=== PATIENT | female | born 1960 | race Caucasian/White ===

== ENCOUNTER 2018-01-16 09:32 | Inpatient (IN) | payer MEDICAID ==
--- NOTE | 2018-01-16 09:51 | EDPHY ---
H & P Stated Complaint: chronic n/v;recent d/c from [facility] [place];wants admit,jay tx for lung, pain meds Time Seen by Provider: 01/16/18 09:50 HPI/ROS: CHIEF COMPLAINT: Nausea vomiting, chronic pain, known lung cancer HISTORY OF PRESENT ILLNESS: The patient presents to the ED with nausea and vomiting and complaints of chronic pain. The patient has a history of a known lung cancer. She has been hospitalized for this recently [facility]. I reviewed the results of that hospitalization. The patient was subsequently seen in the emergency department along [facility] and diagnosed with a urinary tract infection. She was started on Levaquin. She was also given Zofran. The patient has a history of pulmonary embolism and is taking Xarelto. She is scheduled to see her oncologist Dr. Levon Montelongo this week. The patient reports he has been unable to keep her medications down. She reports the Zofran is not helping her nausea and vomiting. She reports that she is having uncontrolled pain. She contacted the coordinator [facility] who advised her to come to the emergency department. REVIEW OF SYSTEMS: A comprehensive 10 point review of systems is otherwise negative aside from elements mentioned in the history of present illness. Source: Patient Exam Limitations: No limitations - Personal History Current Tetanus Diphtheria and Acellular Pertussis (TDAP): Yes - Medical/Surgical History Other PMH: Breast CA. Lung CA. chronic pain - Social History Smoking Status: Former smoker - Physical Exam Exam: General Appearance: Disheveled female, obese, mild discomfort Eyes: Pupils equal and round no pallor or injection ENT, Mouth: Mucous membranes moist Respiratory: There are no retractions, lungs are clear to auscultation Cardiovascular: Regular rate and rhythm Gastrointestinal: Nonspecific abdominal tenderness, no peritoneal signs Neurological: Grossly normal motor exam Skin: Warm and dry, no rashes Musculoskeletal: Neck is supple nontender Extremities: symmetrical, full range of motion Constitutional: Initial Vital Signs Temperature (C) 37 C 01/16/18 09:34 Heart Rate 103 H 01/16/18 09:34 Respiratory Rate 18 01/16/18 09:34 Blood Pressure 102/67 01/16/18 09:34 O2 Sat (%) 93 01/16/18 09:34 O2 Delivery Mode Room Air Allergies/Adverse Reactions: Sulfa (Sulfonamide Antibiotics) Allergy (Intermediate, Verified 01/16/18 09:45) rash/swelling acetaminophen [From Vicodin] Allergy (Mild, Verified 01/16/18 09:45) Rash codeine Allergy (Mild, Verified 01/16/18 09:43) Rash hydrocodone [From Vicodin] Allergy (Mild, Verified 01/16/18 09:45) Rash NSAIDS (Non-Steroidal Anti-Inflamma Allergy (Mild, Verified 01/16/18 09:45) GI upset Penicillins Allergy (Mild, Verified 01/16/18 09:45) Rash Home Medications: Medication Instructions Recorded Albuterol [Proventil Inhaler HFA 1 - 2 puffs IH Q4H 01/16/18 (*)] Antibiotic For Uti 01/16/18 Diazepam [Valium 2 MG (*)] 2 mg PO 01/16/18 Furosemide [Lasix] 40 mg PO 01/16/18 HYDROmorphone HCL [Dilaudid 2 mg 2 mg PO 01/16/18 (*)] Ondansetron Odt [Zofran Odt 4 mg 4 mg PO Q4 01/16/18 (*)] Promethazine HCl [Phenergan 25mg 25 mg PO 01/16/18 (*)] Rivaroxaban [Xarelto 15mg (*)] 15 mg PO DAILY 01/16/18 fentaNYL [Fentanyl] 1 each TD 01/16/18 Medical Decision Making ED Course/Re-evaluation: I reviewed the patient's outpatient records. Consultation was made with Oncology. The patient presents to the ED with worsening metastatic disease. The patient had an IV established. She received a L normal saline. She received 4 mg of IV morphine and [address] Allen Weller has recommended inpatient admission given her ongoing symptoms of pain, vomiting and homelessness. They will consult on the patient to discuss options. Consultation is made with the hospitalist service at 1:30 p.m.. The patient will be admitted by Dr. Erendira Campos. Differential Diagnosis: Differential diagnosis considered includes dehydration metabolic abnormality, worsening metastatic disease - Data Points Laboratory Results: Laboratory Results 01/16/18 10:05 01/16/18 10:05 01/16/18 01/16/18 10:05 10:05 WBC 9.87 10^3/uL H 10^3/uL (3.80-9.50) RBC 4.19 10^6/uL 10^6/uL (4.18-5.33) Hgb 12.2 g/dL L g/dL (12.6-16.3) Hct 38.9 % % (38.0-47.0) MCV 92.8 fL fL (81.5-99.8) MCH 29.1 pg pg (27.9-34.1) MCHC 31.4 g/dL L g/dL (32.4-36.7) RDW 14.8 % % (11.5-15.2) Plt Count 492 10^3/uL H 10^3/uL (150-400) MPV 9.9 fL fL (8.7-11.7) Neut % (Auto) 70.3 % % (39.3-74.2) Lymph % (Auto) 18.6 % % (15.0-45.0) Smith % (Auto) 10.2 % % (4.5-13.0) Eos % (Auto) 0.2 % L % (0.6-7.6) Baso % (Auto) 0.3 % % (0.3-1.7) Nucleat RBC Rel Count 0.0 % % (0.0-0.2) Absolute Neuts (auto) 6.93 10^3/uL H 10^3/uL (1.70-6.50) Absolute Lymphs (auto) 1.84 10^3/uL 10^3/uL (1.00-3.00) Absolute Monos (auto) 1.01 10^3/uL H 10^3/uL (0.30-0.80) Absolute Eos (auto) 0.02 10^3/uL L 10^3/uL (0.03-0.40) Absolute Basos (auto) 0.03 10^3/uL 10^3/uL (0.02-0.10) Absolute Nucleated RBC 0.00 10^3/uL 10^3/uL (0-0.01) Immature Gran % 0.4 % % (0.0-1.1) Immature Gran # 0.04 10^3/uL 10^3/uL (0.00-0.10) Sodium 134 mEq/L L mEq/L (135-145) Potassium 4.5 mEq/L mEq/L (3.3-5.0) Chloride 101 mEq/L mEq/L (97-110) Carbon Dioxide 25 mEq/l mEq/l (22-31) Anion Gap 8 mEq/L mEq/L (8-16) BUN 18 mg/dL mg/dL (7-23) Creatinine 0.5 mg/dL L mg/dL (0.6-1.0) Estimated GFR > 60 Glucose 108 mg/dL H mg/dL (70-100) Calcium 11.8 mg/dL H mg/dL (8.5-10.4) Phosphorus 3.3 mg/dL mg/dL (2.5-4.5) Medications Given: Discontinued Medications Sodium Chloride (Ns) 1,000 mls @ 0 mls/hr IV EDNOW ONE; Wide Open PRN Reason: Protocol Stop: 01/16/18 10:34 Last Admin: 01/16/18 11:17 Dose: 1,000 mls Morphine Sulfate (Morphine) 4 mg IVP EDNOW ONE Stop: 01/16/18 11:19 Last Admin: 01/16/18 11:19 Dose: 4 mg Ondansetron HCl (Zofran) 4 mg IVP EDNOW ONE Stop: 01/16/18 11:19 Last Admin: 01/16/18 11:19 Dose: 4 mg Departure - Departure Disposition: [facility] Clinical Impression: Breast cancer, Dehydration, Cancer associated pain, Pulmonary embolism Condition: Fair Referrals: Levon Montelongo MD [Medical Doctor] - As per Instructions
[2018-01-16] MEDS ORDERED: NS 1,000 ML IV ONE ×2 (10:33→10:34)
[2018-01-16 10:56] LABS: PLATELET COUNT 492 10^3/uL (150-400)
[2018-01-16] MEDS ORDERED: ONDANSETRON 4 MG/2 ML VIAL ONE (11:12)
[2018-01-16] MEDS ORDERED: ONDANSETRON 4 MG/2 ML VIAL IVP ONE (11:18)
[2018-01-16] MEDS ORDERED: HYDROmorphONE/DILAUDID 2 MG/ML INJ IVP ONE (13:27)
--- NOTE | 2018-01-16 14:31 | ASMTCMCOM ---
CM Note CM Note Notes: Asked to see pt by Dr. Mcknight. Pt presented to the Emergency Department with complaints of pain, nausea, and vomiting. History includes breast cancer, likely metastatic. Pt is currently homeless, staying in motels or with friends. Pt is accompanied by her boyfriend, "Eduardo." The pt states she has a Water Supervisor (Sally) at the [facility] who is helping her with housing. Pt was recently discharged from [facility] on 01/11/18 and was seen in the Emergency Department at [facility] again on 01/14/18. Met with pt to discuss current situation. Pt feels she "is rapidly declining from the lung cancer." She states she has been unable to eat or drink for several days due to her nausea and vomiting. She states "the pain in her lungs has gotten worse and she feels like she can't go on." Update provided to Dr. Mcknight. Call placed to [facility] , at the request of Dr. Mcknight. Spoke with Dr. Weller. Per Dr. Weller, the pt is known to their practice. She was initially followed by Dr. Royal in November of 2012 for a diagnosis of Stage IIA breast cancer. She subsequently received chemo under the care of Dr. Kruger at [facility]. Her most recent CT scan showed a PE, a right upper lobe lung mass, and enlarged lymph nodules. The pt had a PET scan on 12/18/2017 which showed an enlarging mass on her right kidney. Dr. Weller feels an inpt admission may be warranted for biopsies, follow on care and further treatment. Update provided to Cinthia Dean RN and pt. Discharge needs remain unclear at this time. CM will continue to follow pt during this hospitalization. Date Signed: 01/16/2018 02:29 PM Electronically Signed By:Paulette Davalos RN
[2018-01-16] MEDS ORDERED: HYDROmorphone HCL 0.5 MG/0.5 ML SYR IVP PRN (14:56)
[2018-01-16] MEDS ORDERED: ACETAMINOPHEN 325 MG TAB PO PRN (14:56)
[2018-01-16] MEDS ORDERED: ALBUTEROL 60 PUFFS/8 GM MDI IH PRN (15:00)
--- NOTE | 2018-01-16 15:57 | GHP ---
[f rep st] HISTORY AND PHYSICAL DATE OF ADMISSION: 01/16/2018 CHIEF COMPLAINT: Nausea, vomiting, shortness of breath. HISTORY OF PRESENT ILLNESS: Ms. Damon is a 57-year-old woman with a history significant for adenocar cinoma of her lung and COPD with ongoing tobacco use. She comes in with 2 weeks of nausea, vomiting, diarrhea, and increasing shortness of breath. She states she has had poor p.o. with solids and liqu ids for 2 weeks. She has been admitted to the hospital at [facility] from December 18 through , December 22 through , and January 05 through January 11, all with similar complaints. During that t екатерина, her workup has included 2 CT scans of her abdomen and pelvis showing no obvious metastatic disea se, but she did have a small soft tissue tumor on her kidney. She has had an abdominal ultrasound wh ich was negative and a whole-body nuclear scan which showed some various joint issues, but nothing ob vious. Her last admission was from January 05 through January 11, at which point, she was treated conserv atively, had a significant workup done noted above, and eventually discharged home with pain control and follow up with Oncology. Since then, she has been to the emergency room twice, most recently joanne gnosed with a urinary tract infection and treated with Levaquin. After reviewing the chart, it appea rs that her urine culture was negative and she mainly had some microscopic hematuria. She has a remote history of breast cancer, which has been treated with chemo, lumpectomy. This was i n 2001. More recently, she was diagnosed with adenocarcinoma of the lung. The biopsy was done in [facility] of 2017. She has a right hilar mass and a right upper lobe mass, which was positive for TTF-1. This was ordered by her doctor, Dr. Foley. She was supposed to follow up with Oncology at the [facility], however, has missed multiple appointments stating that she is unable to get ther e for Oncology and would prefer to follow up here in [place]. She has scheduled an appointment with Dr. Montelongo on January 19. She was also scheduled for an MRI of her brain and she apparently missed that appointment and it has not been done yet. Currently, her main issue is nausea, vomiting, poor p.o. intake. She only has abdominal pain when sh e has some cramping with the diarrhea and emesis. She has chronic chest pain from her lung mass she states that is unchanged as long as she takes her pain medications. No headache. No neurologic fontenot ges. She has chronic lower extremity edema, chronic shortness of breath. No change in her urinary s ymptoms. REVIEW OF SYSTEMS: A 10-point review of systems was done with pertinent positives present in HPI. PAST MEDICAL HISTORY: 1. Adenocarcinoma of the lung, untreated. 2. Breast cancer, remote. 3. COPD. 4. Pulmonary embolism diagnosed in December. 5. Ongoing tobacco use. 6. Probable chronic respiratory failure. FAMILY HISTORY: Mother from some sort of metastatic cancer of unknown cause. SOCIAL HISTORY: She is currently homeless. She and her boyfriend have been moving around from house to house with friends over the last several months. She continues to smoke a few cigarettes per day . She denies alcohol use or recreational drug use. CURRENT MEDICATIONS: Please see med reconciliation form. Pain medications do include fentanyl patch and Dilaudid orally. ALLERGIES: To sulfa, Vicodin, codeine, nonsteroidal anti-inflammatories, and penicillin. PHYSICAL EXAMINATION: VITAL SIGNS: She is afebrile. Heart rate 99, blood pressure 109/58, respirat ions 16. She is 93% on 2 L. GENERAL: She is an obese 57-year-old woman. She is in no obvious dist ress. She is alert. HEENT: Pupils are equal. Extraocular movements intact. Mucous membranes are moist. Oropharynx is clear. NECK: Supple. No obvious adenopathy. HEART: Regular with a systolic murmur radiating to carotids. LUNGS: Diminished bilaterally. No obvious wheeze or rhonchi. ABDOM EN: Obese, soft. No tenderness on palpation. No masses. EXTREMITIES: Bilateral lower extremity n onpitting edema. MUSCULOSKELETAL: No joint deformities. NEUROLOGIC: Her speech is fluent. She mo ves all 4 extremities. PSYCH: She is appropriate, somewhat anxious. CIRCULATORY: Pulses intact di stally. LABORATORY DATA: Sodium 134. Calcium elevated 11.8. CBC shows a white count of 9.9, hemoglobin 12. 2 with a platelet count of 492. ASSESSMENT AND PLAN: A 57-year-old woman with above medical history, presents with nausea, vomiting, and diarrhea. Contributing factors could include chronic narcotic use, malignancy, or hypercalcemia . 1. Nausea, vomiting, diarrhea. Will treat symptomatically. Place her on clear liquids, IV fluids, antiemetics, and follow her clinically. No further imaging of her abdomen needs to be done at this t [facility] as she has had [address] scans. Additionally, I will order a C difficile toxin for her diarrhe a given her multiple admissions to the hospital and will correct her calcium. 2. Additionally, we will add some Decadron to see if that makes her feel better from her nausea and vomiting. 3. Hypercalcemia, likely secondary to her malignancy. Will repeat ionized calcium, hydrate her and consider Zometa as treatment to see if this makes her feel better. Chronic. 4. obstructive pulmonary disease with chronic hypoxic respiratory failure. Patient has been hypoxic previously at the ER visits. She complains of intermittent shortness of breath. She has diminished breath sounds and has ongoing tobacco use. Will add Duonebs while she is here and she will be place d on Decadron for her nausea and vomiting. This will likely help her lungs as well. 5. Chronic pain, currently on fentanyl patch. Will continue and add IV medications while she has na usea and vomiting and resume her usual medications on discharge. 6. History of pulmonary embolism, currently on Xarelto and followed by Dr. Tobin in [place]. 7. Ongoing tobacco use. Will have a nicotine patch. 8. Homelessness. This will be a difficult disposition and the patient will need to get set up in a better social situation if she wants to proceed for treatment for her lung cancer. /[id number]/MODL
[2018-01-16] MEDS: RIVAROXABAN 15 MG TAB PO SCH (16:50)
[2018-01-16] MEDS: HYDROmorphONE/DILAUDID 1 MG/ML INJ IVP PRN ×2 (17:16→22:27)
[2018-01-16] MEDS: IPRATROPIUM/ALBUTEROL 3 ML DEYVIAL IH SCH ×2 (17:19→21:31)
[2018-01-16] MEDS: NS 1,000 ML IV SCH (17:20)
[2018-01-16] MEDS: NICOTINE 14 MG/24 HR PATCH TD SCH (17:20)
[2018-01-16] MEDS: HYDROmorphONE/DILAUDID 2 MG TAB PO PRN (19:47)
[2018-01-16] MEDS: ONDANSETRON 4 MG/2 ML VIAL IVP PRN (19:51)
[2018-01-16] MEDS: DIAZEPAM 2 MG TAB PO SCH (20:02)
[2018-01-16] MEDS: DEXAMETHASONE 4 MG/ML VIAL IVP SCH (20:03)
[2018-01-16] MEDS ORDERED: HYDROmorphONE/DILAUDID 1 MG/ML INJ IVP ONE (20:15)
[2018-01-16] MEDS ORDERED: DEXAMETHASONE 4 MG/ML VIAL IVP SCH (21:00)
[2018-01-16] MEDS ORDERED: METHOCARBAMOL 1,000 MG in NS 50 ML IV ONE (22:45)
[2018-01-17] MEDS ORDERED: GABAPENTIN 300 MG CAP PO ONE (01:01)
[2018-01-17] MEDS: HYDROmorphONE/DILAUDID 1 MG/ML INJ IVP PRN ×7 (01:13→22:23)
[2018-01-17] MEDS: IPRATROPIUM/ALBUTEROL 3 ML DEYVIAL IH SCH ×4 (06:34→21:11)
[2018-01-17] MEDS: ONDANSETRON 4 MG/2 ML VIAL IVP PRN (08:08)
[2018-01-17] MEDS ORDERED: ZOLEDRONIC ACID 4 MG in D5W 100 ML IV ONE (08:10)
[2018-01-17] MEDS: DEXAMETHASONE 4 MG/ML VIAL IVP SCH ×2 (08:10→20:43)
[2018-01-17] MEDS: HYDROmorphONE/DILAUDID 2 MG TAB PO PRN ×3 (08:15→20:43)
[2018-01-17] MEDS: DIAZEPAM 2 MG TAB PO SCH ×2 (08:15→20:43)
[2018-01-17] MEDS: NS 1,000 ML IV SCH ×2 (08:15→23:13)
[2018-01-17] MEDS: RIVAROXABAN 15 MG TAB PO SCH (08:16)
[2018-01-17] MEDS: FUROSEMIDE 40 MG TAB PO SCH (08:16)
[2018-01-17] MEDS: NICOTINE 14 MG/24 HR PATCH TD SCH (08:17)
[2018-01-17] MEDS ORDERED: GADOBUTROL 10 ML VIAL IVP ONE (08:27)
[2018-01-17] MEDS ORDERED: LORazepam 2 MG/ML INJ IVP ONE (10:00)
--- NOTE | 2018-01-17 11:50 | HOSPPROG ---
Hospitalist Progress Note Assessment/Plan: 57-year-old with a history of untreated an adenocarcinoma of the lung is admitted with nausea vomiting and diarrhea. Since being in here she has had no diarrhea. She admits she would like to stay here until she feels strong enough to start treatment for her cancer. # hypercalcemia, likely secondary to lung cancer. Corrected calcium is 10.6 * Repeat calcium and ionized calcium in a.m. * Unclear benefit with minimally elevated calcium of Zometa. Will discuss with Oncology # nausea vomiting diarrhea, no evidence of that so far. But has had poor p.o. Intake * Advance diet * Continue Decadron # adenocarcinoma of the lung. Diagnosed in July patient was noncompliant with follow up at [place] and has not started treatment. * She is interested in treatment * She has a follow-up scheduled on Thursday per her report. * Main issue is chronic chest pain due to the mass # COPD with ongoing tobacco use * Continue nebulizers # acute on chronic respiratory failure, I suspect the patient has chronic respiratory failure given exam findings of clubbing. She is homeless so setting up home O2 is going to be difficult. * Monitor oxygen here in the hospital # disposition: Patient is homeless, she does have Medicaid. Given ongoing weakness and poor p.o. Intake associated with untreated adenocarcinoma of the lung the patient will need greater than 2 midnight stay Subjective: Complains of ongoing weakness and difficulty eating. She does not feel strong enough at this time for discharge. She is quite interested in treating her cancer however Objective: Vital Signs Temp Pulse Resp BP Pulse Ox 36.5 C 99 14 119/66 91 L 01/17/18 07:32 01/17/18 07:32 01/17/18 07:32 01/17/18 07:32 01/17/18 07:32 Laboratory Results 01/17/18 01:35 01/16/18 01/17/18 01/18/18 05:59 05:59 05:59 Intake Total 1200 Output Total 800 600 Balance 400 -600 - Physical Exam Constitutional: chronically ill appearing, obese, unkempt Eyes: PERRL Ears, Nose, Mouth, Throat: hearing normal Cardiovascular: regular rate and rhythym Respiratory: no respiratory distress, reduced air movement Gastrointestinal: normoactive bowel sounds Genitourinary: no bladder fullness Skin: normal color Musculoskeletal: generalized weakness Neurologic: No facial droop Psychiatric: anxious ICD10 Worksheet Patient Problems: Problems Problem Status Onset Breast cancer Acute Dehydration Acute Cancer associated pain Acute Pulmonary embolism Acute
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
[2018-01-17] MEDS ORDERED: IOPAMIDOL (ISOVUE-300) 100 ML BTL ONE (15:59)
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
--- NOTE | 2018-01-17 17:29 | PDMN ---
Medical Necessity Medical necessity: Change to IP, as of 01/17/18, per MD; los >2 mn for ongoing management of untreated adenocarcinoma of lung w/weakness, poor p.o. intake, & acute on chronic respiratory failure; requiring further workup, Oncology consult , IVFs, respiratory supportive care & therapies; hx homelessness, COPD; per progress note & order 01/17/18
[2018-01-18] MEDS: HYDROmorphONE/DILAUDID 1 MG/ML INJ IVP PRN ×7 (01:03→23:50)
[2018-01-18] MEDS: HYDROmorphONE/DILAUDID 2 MG TAB PO PRN ×4 (03:04→23:16)
[2018-01-18] MEDS: IPRATROPIUM/ALBUTEROL 3 ML DEYVIAL IH SCH ×4 (06:23→17:55)
--- NOTE | 2018-01-18 09:31 | HOSPPROG ---
Hospitalist Progress Note Assessment/Plan: 57-year-old with a history of untreated an adenocarcinoma of the lung is admitted with nausea vomiting and diarrhea. She has no N/V/D, Met with Radiation Oncology and plans to start radiation here while working on disposition. # hypercalcemia, likely secondary to lung cancer. Corrected calcium is 10.6 * Repeat calcium and ionized calcium in a.m. * Unclear benefit with minimally elevated calcium of Zometa. Will discuss with Oncology # nausea vomiting diarrhea, no evidence of that so far. But has had poor p.o. Intake * Advance diet * Continue Decadron # adenocarcinoma of the lung. Diagnosed in July patient was noncompliant with follow up at [place] and has not started treatment. * She is interested in treatment * XRT # COPD with ongoing tobacco use * Continue nebulizers * On Decadron # acute on chronic respiratory failure, I suspect the patient has chronic respiratory failure given exam findings of clubbing. She is homeless so setting up home O2 is going to be difficult. * Monitor oxygen here in the hospital * Likely from COPD and some lung collapse due to cancer. # disposition: Patient is homeless, she does have Medicaid. Given ongoing weakness and poor p.o. Intake associated with untreated adenocarcinoma of the lung the patient will need greater than 2 midnight stay Subjective: State her nausea and vomiting has resolve, no diarrhea. has ongoing chronic chest pain. Objective: Vital Signs Temp Pulse Resp BP Pulse Ox 36.4 C 94 17 124/59 H 88 L 01/18/18 09:10 01/18/18 09:10 01/18/18 09:10 01/18/18 09:10 01/18/18 09:10 Laboratory Results 01/18/18 04:38 01/17/18 01/18/18 01/19/18 05:59 05:59 05:59 Intake Total 540 Output Total 1550 700 Balance -1010 -700 - Physical Exam Constitutional: obese, unkempt Eyes: PERRL Ears, Nose, Mouth, Throat: moist mucous membranes Cardiovascular: regular rate and rhythym Respiratory: no respiratory distress, reduced air movement Gastrointestinal: normoactive bowel sounds, No tenderness Genitourinary: no bladder fullness Skin: normal color Neurologic: AAOx3 Psychiatric: interacting appropriately, anxious ICD10 Worksheet Patient Problems: Problems Problem Status Onset Breast cancer Acute Dehydration Acute Cancer associated pain Acute Pulmonary embolism Acute
[2018-01-18] MEDS: RIVAROXABAN 15 MG TAB PO SCH (10:04)
[2018-01-18] MEDS: DEXAMETHASONE 4 MG/ML VIAL IVP SCH ×2 (10:04→21:09)
[2018-01-18] MEDS: DIAZEPAM 2 MG TAB PO SCH ×2 (10:04→20:56)
[2018-01-18] MEDS: NS 1,000 ML IV SCH ×2 (10:14→23:17)
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
[2018-01-18] MEDS: NICOTINE 14 MG/24 HR PATCH TD SCH (13:43)
[2018-01-18] MEDS: FUROSEMIDE 40 MG TAB PO SCH (13:43)
[2018-01-18] MEDS ORDERED: ZOLEDRONIC ACID 4 MG in D5W 100 ML IV ONE (14:45)
--- NOTE | 2018-01-18 16:55 | ASMTCMCOM ---
CM Note CM Note Notes: Pt asked if CM could speak with her about helping her find a place that she could stay following D/C and while receiving her 5 days of radiation therapy. CM spoke to Pt and Pt shared that she already had someone working with her, she reports that Sally, a [facility] she [facility] her [facility] is helping her. CM will need to try to contact Sally to learn more about her efforts. CM to follow. D/C Plan: TBD D Date Signed: 01/18/2018 04:54 PM Electronically Signed By:Caorl Gomez
[2018-01-19] MEDS ORDERED: ALBUTEROL 3 ML DEYVIAL ONE
[2018-01-19] MEDS: IPRATROPIUM/ALBUTEROL 3 ML DEYVIAL IH SCH ×5 (00:12→21:58)
[2018-01-19] MEDS: LORazepam 0.5 MG TAB PO PRN ×2 (00:32→11:23)
[2018-01-19] MEDS: HYDROmorphONE/DILAUDID 1 MG/ML INJ IVP PRN ×5 (02:07→19:07)
[2018-01-19] MEDS: HYDROmorphONE/DILAUDID 2 MG TAB PO PRN ×4 (04:53→21:01)
[2018-01-19] MEDS: DEXAMETHASONE 4 MG/ML VIAL IVP SCH (08:42)
[2018-01-19] MEDS: FUROSEMIDE 40 MG TAB PO SCH (08:42)
[2018-01-19] MEDS: RIVAROXABAN 15 MG TAB PO SCH (08:43)
[2018-01-19] MEDS: DIAZEPAM 2 MG TAB PO SCH ×2 (08:43→21:03)
[2018-01-19] MEDS: ONDANSETRON 4 MG/2 ML VIAL IVP PRN (08:50)
[2018-01-19] MEDS ORDERED: fentaNYL 12 MCG PATCH TD SCH (09:00)
[2018-01-19] MEDS: NICOTINE 14 MG/24 HR PATCH TD SCH (11:01)
--- NOTE | 2018-01-19 13:13 | SOAPPROG ---
SOAP Progress Note Assessment/Plan: Assessment: 1. non small cell lung cancer, unresectable 2. hypercalcemia of malignancy, better post Zometa 3. copd Plan:palliative RT , consideration systemic therapy 01/19/18 13:11 Subjective: some pain and anxiety Objective: Vital Signs Temp Pulse Resp BP Pulse Ox 98.4 F 90 16 111/60 91 L 01/19/18 12:56 01/19/18 12:56 01/19/18 12:56 01/19/18 12:56 01/19/18 12:56 Laboratory Results 01/19/18 04:36 01/18/18 01/19/18 01/20/18 05:59 05:59 05:59 Intake Total 540 2004 Output Total 1550 3050 1700 Balance -1010 -1046 -1700 Physical Exam - Physical Exam General Appearance: alert, moderate distress Respiratory: decreased breath sounds Cardiac/Chest: regular rate, rhythm Abdomen: normal bowel sounds, non-tender ICD10 Worksheet Patient Problems: Problems Problem Status Onset Breast cancer Acute Cancer associated pain Acute Dehydration Acute Pulmonary embolism Acute
--- NOTE | 2018-01-19 14:43 | HOSPPROG ---
Hospitalist Progress Note Assessment/Plan: 57-year-old with a history of untreated an adenocarcinoma of the lung is admitted with nausea vomiting and diarrhea. She has no N/V/D, Met with Radiation Oncology , patient status post 1st radiation therapy today will need 5 total. Given her homelessness and social situation will keep her in-house while she receives her radiation therapy # hypercalcemia, likely secondary to lung cancer. * Improved on Zometa # chest pain secondary to radiation therapy as well as her tumor. Patient refusing fentanyl patch * At oral meds. # nausea vomiting diarrhea, improved with steroids * Advance diet * Continue Decadron # adenocarcinoma of the lung. Diagnosed in July patient was noncompliant with follow up at [place] and has not started treatment. * Cancer is nonresectable * XRT * Follow up with Dr. Weller as outpatient once she finishes XRT # COPD with ongoing tobacco use * Continue nebulizers * On Decadron # acute on chronic respiratory failure, due to her history of COPD with evidence of clubbing on exam as well as significant tumor burden in her belongings with likely some collapse. * Monitor oxygen here in the hospital * Likely from COPD and some lung collapse due to cancer. # disposition: Patient is homeless, she does have Medicaid. Given ongoing weakness and poor p.o. Intake associated with untreated adenocarcinoma of the lung the patient will need greater than 2 midnight stay Subjective: Complains of significant pain. Refuses fentanyl patch because it bothers her scan Objective: Vital Signs Temp Pulse Resp BP Pulse Ox 36.9 C 90 16 111/60 91 L 01/19/18 12:56 01/19/18 12:56 01/19/18 12:56 01/19/18 12:56 01/19/18 12:56 Laboratory Results 01/19/18 04:36 01/18/18 01/19/18 01/20/18 05:59 05:59 05:59 Intake Total 540 2004 Output Total 1550 3050 1700 Balance -1010 -2486 -1700 - Physical Exam Constitutional: chronically ill appearing, uncomfortable Eyes: PERRL Ears, Nose, Mouth, Throat: moist mucous membranes Cardiovascular: regular rate and rhythym Respiratory: no respiratory distress, reduced air movement Gastrointestinal: normoactive bowel sounds, soft, non-tender abdomen Skin: warm, No normal color (Pale) Musculoskeletal: generalized weakness Neurologic: weakness, No facial droop Psychiatric: interacting appropriately ICD10 Worksheet Patient Problems: Problems Problem Status Onset Breast cancer Acute Cancer associated pain Acute Dehydration Acute Pulmonary embolism Acute
[2018-01-19] MEDS: DEXAMETHASONE 4 MG TAB PO SCH (21:03)
[2018-01-20] MEDS: LORazepam 0.5 MG TAB PO PRN ×2 (01:05→13:47)
[2018-01-20] MEDS: HYDROmorphONE/DILAUDID 1 MG/ML INJ IVP PRN (01:06)
[2018-01-20] MEDS: HYDROmorphONE/DILAUDID 2 MG TAB PO PRN ×4 (03:30→17:37)
[2018-01-20] MEDS: IPRATROPIUM/ALBUTEROL 3 ML DEYVIAL IH SCH ×4 (03:46→21:09)
[2018-01-20] MEDS: DIAZEPAM 2 MG TAB PO SCH ×2 (08:04→21:24)
[2018-01-20] MEDS: FUROSEMIDE 40 MG TAB PO SCH ×2 (08:05→11:09)
[2018-01-20] MEDS: RIVAROXABAN 15 MG TAB PO SCH (08:05)
[2018-01-20] MEDS: DEXAMETHASONE 4 MG TAB PO SCH ×2 (08:05→21:24)
--- NOTE | 2018-01-20 08:40 | SOAPPROG ---
SOAP Progress Note Assessment/Plan: Assessment: 1. non small cell lung cancer, unresectable 2. hypercalcemia of malignancy, better post Zometa 3. COPD Plan:palliative RT, plan is for 5 treatments , consideration systemic therapy post RT 01/19/18 13:11 01/20/18 08:39 Subjective: Cold this AM, wants to sleep, Objective: Vital Signs Temp Pulse Resp BP Pulse Ox 98.6 F 101 H 18 101/60 92 01/20/18 08:11 01/20/18 08:11 01/20/18 08:11 01/20/18 08:11 01/20/18 08:25 Laboratory Results 01/19/18 04:36 01/19/18 01/20/18 01/21/18 05:59 05:59 05:59 Intake Total 2003 800 Output Total 6 4147 Balance -1046 -2200 Physical Exam - Physical Exam General Appearance: alert, mild distress Respiratory: decreased breath sounds Cardiac/Chest: regular rate, rhythm ICD10 Worksheet Patient Problems: Problems Problem Status Onset Breast cancer Acute Cancer associated pain Acute Dehydration Acute Pulmonary embolism Acute
[2018-01-20] MEDS: NICOTINE 14 MG/24 HR PATCH TD SCH (10:14)
[2018-01-20] MEDS: ONDANSETRON DISINTEGRATING 4 MG TAB PO PRN (13:19)
[2018-01-20] MEDS: PROMETHAZINE HCL 25 MG/ML INJ IVP PRN (14:17)
[2018-01-20] MEDS: traMADol 50 MG TAB PO PRN (14:18)
--- NOTE | 2018-01-20 15:22 | HOSPPROG ---
Hospitalist Progress Note Assessment/Plan: DIAGNOSES: * uncontrolled pain of cancer * recently diagnosed unresectable lung cancer, metastatic disease * hypercalcemia of malignancy * acute on chronic hypoxemic respiratory failure/COPD exacerbation * intractable nausea vomiting * homelessness PLANS: * Continue current radiation treatments * I have added some long-acting morphine, some Celebrex, and some tramadol for pain relief * Continue treatment of nausea * Continue current steroids and bronchodilators * Recheck ionized calcium in the morning * Palliative care discussions ongoing * Continue social work and discharge planning efforts to try and set her up for best success after discharge I reviewed her case and treatment issues in detail today with Dr. 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, my review: Exam: alert oriented mildly anxious and looks uncomfortable skin warm dry color ok no jaundice resps mildly labored lungs markedly diminished BSs but no rales or rhonchi or wheeze heart regular abd soft nondistended nontender, bowel sounds present limbs warm, no edema iv site ok Objective: Vital Signs Temp Pulse Resp BP Pulse Ox 36.8 C 97 16 105/59 L 90 L 01/20/18 12:50 01/20/18 12:50 01/20/18 12:50 01/20/18 12:50 01/20/18 12:50 Laboratory Results 01/19/18 04:36 01/19/18 01/20/18 01/21/18 06:59 06:59 06:59 Intake Total 2003 800 Output Total 2850 3000 200 Balance -846 -2200 -200 - Time Spent With Patient Time Spent with Patient: greater than 35 minutes Time Spent with Patient: Greater than 35 minutes spent on this patients care, greater than 50% of time spent counseling, educating, and coordinating care regarding the above mentioned plan. ICD10 Worksheet Patient Problems: Problems Problem Status Onset Breast cancer Acute Cancer associated pain Acute Dehydration Acute Pulmonary embolism Acute
[2018-01-20] MEDS: ONDANSETRON 4 MG/2 ML VIAL IVP SCH ×2 (17:37→21:24)
[2018-01-20] MEDS: morphINE SR 15 MG TAB PO SCH (21:24)
[2018-01-21] MEDS: NS 1,000 ML IV SCH ×2 (00:43→10:29)
[2018-01-21] MEDS: traMADol 50 MG TAB PO PRN ×2 (00:46→11:21)
[2018-01-21] MEDS: ONDANSETRON 4 MG/2 ML VIAL IVP SCH ×6 (02:32→20:53)
[2018-01-21] MEDS: HYDROmorphONE/DILAUDID 2 MG TAB PO PRN ×5 (02:37→22:26)
[2018-01-21] MEDS: IPRATROPIUM/ALBUTEROL 3 ML DEYVIAL IH SCH ×4 (05:28→21:28)
[2018-01-21] MEDS: RIVAROXABAN 15 MG TAB PO SCH (08:35)
[2018-01-21] MEDS: FUROSEMIDE 40 MG TAB PO SCH (08:35)
[2018-01-21] MEDS: DIAZEPAM 2 MG TAB PO SCH ×2 (08:36→20:53)
[2018-01-21] MEDS: DEXAMETHASONE 4 MG TAB PO SCH ×2 (08:37→20:53)
[2018-01-21] MEDS: morphINE SR 15 MG TAB PO SCH ×2 (08:37→20:53)
[2018-01-21] MEDS: NICOTINE 14 MG/24 HR PATCH TD SCH (08:41)
--- NOTE | 2018-01-21 12:08 | SOAPPROG ---
SOAP Progress Note Assessment/Plan: Assessment: 1. non small cell lung cancer, unresectable 2. hypercalcemia of malignancy, better post Zometa 3. COPD Plan:palliative RT, plan is for 5 treatments , consideration systemic therapy post RT, on long acting morphine, celebrex, tramadol, and steroids. , could increase morphine tomorrow if pain not better 01/19/18 13:11 01/20/18 08:39 01/21/18 12:05 Subjective: C/O pain, R chest Objective: Vital Signs Temp Pulse Resp BP Pulse Ox 97.5 F 96 16 101/51 L 90 L 01/21/18 11:36 01/21/18 11:36 01/21/18 11:36 01/21/18 11:36 01/21/18 11:36 Laboratory Results 01/19/18 04:36 01/20/18 01/21/18 01/22/18 05:59 05:59 05:59 Intake Total 800 873 200 Output Total 3000 600 Balance -2200 273 200 Physical Exam - Physical Exam General Appearance: mild distress Respiratory: decreased breath sounds Cardiac/Chest: regular rate, rhythm Abdomen: normal bowel sounds, non-tender ICD10 Worksheet Patient Problems: Problems Problem Status Onset Breast cancer Acute Cancer associated pain Acute Dehydration Acute Pulmonary embolism Acute
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
[2018-01-21] MEDS: LORazepam 0.5 MG TAB PO PRN ×2 (13:48→20:56)
--- NOTE | 2018-01-21 15:51 | HOSPPROG ---
Hospitalist Progress Note Assessment/Plan: DIAGNOSES: * uncontrolled pain of cancer * recently diagnosed unresectable lung cancer, metastatic disease * hypercalcemia of malignancy * acute on chronic hypoxemic respiratory failure/COPD exacerbation * intractable nausea vomiting * homelessness Had a long discussion with the patient today about her situation, and had a visit with her along with our caser shoe parts today to review her social challenges related to homelessness and other challenges. Reviewed the current plan for treatments during the rest of her hospital stay and what the plans overall will likely look like upon discharge. Specifically however she will need to have follow-up appointment in the clinic to review options for chemotherapy or immune therapy. She understands this. She is going to be helped greatly by hooking or up with [facility] and will start arranging this at present. PLANS: * Continue current radiation treatments, last treatment should be tomorrow * Continue long-acting morphine, some Celebrex, and tramadol adjust doses as needed * Continue current treatment of nausea * Continue current steroids and bronchodilators * Recheck ionized calcium in the morning * Palliative care discussions ongoing * Continue social work and discharge planning efforts to try and set her up for best success after discharge I reviewed her case and treatment issues in detail today with Dr. Shashi Gil SUBJECTIVE: Pain is still present and problematic but notably improved from yesterday and she did sleep better last night Eating a little bit better Short of breath is mild today Tolerating her radiation treatments okay other than bed fatigue OBJECTIVE Vitals reviewed: Some intermittent tachycardia, normal blood pressure, no fever Radiology Services Manager, my review: Exam: alert oriented mildly anxious and looks uncomfortable skin warm dry color ok no jaundice resps mildly labored lungs markedly diminished BSs but no rales or rhonchi or wheeze heart regular abd soft nondistended nontender, bowel sounds present limbs warm, no edema iv site ok Objective: Vital Signs Temp Pulse Resp BP Pulse Ox 36.4 C 96 16 101/51 L 90 L 01/21/18 11:36 01/21/18 11:36 01/21/18 11:36 01/21/18 11:36 01/21/18 11:36 Laboratory Results 01/19/18 04:36 01/20/18 01/21/18 01/22/18 06:59 06:59 06:59 Intake Total 800 873 200 Output Total 3000 600 Balance -2200 273 200 - Time Spent With Patient Time Spent with Patient: greater than 35 minutes Time Spent with Patient: Greater than 35 minutes spent on this patients care, greater than 50% of time spent counseling, educating, and coordinating care regarding the above mentioned plan. ICD10 Worksheet Patient Problems: Problems Problem Status Onset Breast cancer Acute Cancer associated pain Acute Dehydration Acute Pulmonary embolism Acute
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
[2018-01-21] MEDS: HYDROmorphONE/DILAUDID 1 MG/ML INJ IVP PRN ×2 (18:56→23:59)
[2018-01-21] MEDS: ONDANSETRON DISINTEGRATING 4 MG TAB PO PRN (22:27)
[2018-01-22] MEDS: diphenhydrAMINE 25 MG CAP PO PRN (00:29)
[2018-01-22] MEDS: NS 1,000 ML IV SCH (02:26)
[2018-01-22] MEDS: ONDANSETRON 4 MG/2 ML VIAL IVP SCH ×6 (02:54→21:35)
[2018-01-22] MEDS: traMADol 50 MG TAB PO PRN (02:55)
[2018-01-22] MEDS: HYDROmorphONE/DILAUDID 2 MG TAB PO PRN ×3 (03:48→19:24)
[2018-01-22] MEDS: HYDROmorphONE/DILAUDID 1 MG/ML INJ IVP PRN ×3 (05:35→17:25)
[2018-01-22] MEDS: IPRATROPIUM/ALBUTEROL 3 ML DEYVIAL IH SCH ×4 (05:40→19:07)
[2018-01-22] MEDS: RIVAROXABAN 15 MG TAB PO SCH (08:26)
[2018-01-22] MEDS: DEXAMETHASONE 4 MG TAB PO SCH ×2 (08:26→21:35)
[2018-01-22] MEDS: DIAZEPAM 2 MG TAB PO SCH ×2 (08:26→21:35)
[2018-01-22] MEDS: morphINE SR 15 MG TAB PO SCH ×2 (08:26→21:35)
[2018-01-22] MEDS: FUROSEMIDE 40 MG TAB PO SCH (08:27)
[2018-01-22] MEDS: NICOTINE 14 MG/24 HR PATCH TD SCH (08:27)
--- NOTE | 2018-01-22 13:30 | SOAPPROG ---
SOAP Progress Note Assessment/Plan: Assessment: 1. non small cell lung cancer, unresectable 2. hypercalcemia of malignancy, better post Zometa, ionized calcium now low 3. COPD Plan:palliative RT, plan is for 5 treatments , consideration systemic therapy post RT, on long acting morphine, celebrex, tramadol, and steroids.Working on social situation 01/19/18 13:11 01/20/18 08:39 01/21/18 12:05 01/22/18 13:28 Subjective: feels ok , some pain Objective: Vital Signs Temp Pulse Resp BP Pulse Ox 97.9 F 98 18 107/69 91 L 01/22/18 08:51 01/22/18 08:51 01/22/18 08:51 01/22/18 08:51 01/22/18 08:51 Laboratory Results 01/19/18 04:36 01/21/18 01/22/18 01/23/18 05:59 05:59 05:59 Intake Total 873 3007 Output Total 600 2400 150 Balance 273 607 -150 ICD10 Worksheet Patient Problems: Problems Problem Status Onset Breast cancer Acute Cancer associated pain Acute Dehydration Acute Pulmonary embolism Acute
[2018-01-22] MEDS: LORazepam 0.5 MG TAB PO PRN (13:57)
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
--- NOTE | 2018-01-22 18:11 | HOSPPROG ---
Hospitalist Progress Note Assessment/Plan: DIAGNOSES: * uncontrolled pain of cancer * Continued pain on long and short-acting narcotics, Celebrex, tramadol * Some increase in pain today and now is describing what sounds clearly like neuropathic pain which is different from what was heard and past * recently diagnosed unresectable lung cancer, metastatic disease * hypercalcemia of malignancy * Resolved after a dose of Zometa and IV hydration * acute on chronic hypoxemic respiratory failure/COPD exacerbation * Stable at this time * intractable nausea vomiting * Still some intermittent nausea but improving and is getting more food in and hydrating well * homelessness PLANS: * Continue current radiation treatments, last treatment should be 3 days from now on Thursday * Continue long-acting morphine, some Celebrex, and tramadol adjust doses as needed * Will add Neurontin at this time and ramp dose up as needed based on house tolerated * Continue current treatment of nausea * Continue current steroids and bronchodilators * Palliative care discussions ongoing * Continue social work and discharge planning efforts to try and set her up for best success after discharge I reviewed her case and treatment issues in detail today with Dr. Shashi Gil SUBJECTIVE: Today states the pain seems worse to her, however tells me that she is having a lot of burning and tingling type pain along the inner part of the right arm and the left axillary and sub axillary areas. She has not described neuropathic sounding pain in the past. She has no more or less short of breath today than yesterday. No fever symptoms. Eating okay Tolerated her 4th dose of radiation okay today OBJECTIVE Vitals reviewed: Overall stable no fever Logging Engineer, my review: Exam: alert oriented, looks uncomfortable skin warm dry color ok no jaundice resps mildly labored lungs markedly diminished BSs but no rales or rhonchi or wheeze heart regular abd soft nondistended nontender, bowel sounds present limbs warm, no edema iv site ok Laboratory data: Ionized calcium is at 1.1 Objective: Vital Signs Temp Pulse Resp BP Pulse Ox 36.7 C 100 16 107/69 86 L 01/22/18 15:52 01/22/18 15:52 01/22/18 15:52 01/22/18 15:52 01/22/18 15:52 Laboratory Results 01/19/18 04:36 01/21/18 01/22/18 01/23/18 06:59 06:59 06:59 Intake Total 873 3007 Output Total 600 2500 50 Balance 273 507 -50 - Time Spent With Patient Time Spent with Patient: greater than 35 minutes Time Spent with Patient: Greater than 35 minutes spent on this patients care, greater than 50% of time spent counseling, educating, and coordinating care regarding the above mentioned plan. ICD10 Worksheet Patient Problems: Problems Problem Status Onset Breast cancer Acute Cancer associated pain Acute Dehydration Acute Pulmonary embolism Acute
[2018-01-22] MEDS: GABAPENTIN 300 MG CAP PO SCH (19:25)
[2018-01-23] MEDS: ONDANSETRON 4 MG/2 ML VIAL IVP SCH ×6 (01:29→21:47)
[2018-01-23] MEDS: HYDROmorphONE/DILAUDID 2 MG TAB PO PRN ×4 (01:37→17:32)
[2018-01-23] MEDS: ONDANSETRON DISINTEGRATING 4 MG TAB PO PRN (03:59)
[2018-01-23] MEDS: IPRATROPIUM/ALBUTEROL 3 ML DEYVIAL IH SCH ×4 (05:18→21:07)
[2018-01-23] MEDS: DIAZEPAM 2 MG TAB PO SCH ×2 (09:26→20:29)
[2018-01-23] MEDS: morphINE SR 15 MG TAB PO SCH ×3 (09:27→22:36)
[2018-01-23] MEDS: DEXAMETHASONE 4 MG TAB PO SCH ×2 (09:27→20:29)
[2018-01-23] MEDS: GABAPENTIN 300 MG CAP PO SCH ×2 (09:27→20:29)
[2018-01-23] MEDS: traMADol 50 MG TAB PO PRN (09:27)
[2018-01-23] MEDS: RIVAROXABAN 15 MG TAB PO SCH (09:27)
[2018-01-23] MEDS: FUROSEMIDE 40 MG TAB PO SCH (09:27)
[2018-01-23] MEDS: NICOTINE 14 MG/24 HR PATCH TD SCH (09:29)
--- NOTE | 2018-01-23 12:01 | HOSPPROG ---
Hospitalist Progress Note Assessment/Plan: DIAGNOSES: * uncontrolled pain of cancer * Continued pain on long and short-acting narcotics, Celebrex, tramadol and now Neurontin * Some increase in pain again today, still describing what sounds clearly like neuropathic pain along with other pain types * recently diagnosed unresectable lung cancer, metastatic disease * hypercalcemia of malignancy * Resolved after a dose of Zometa and IV hydration * acute on chronic hypoxemic respiratory failure/COPD exacerbation * Stable at this time * intractable nausea vomiting * Better today * homelessness PLANS: * Continue current radiation treatments, last treatment should be two days from now on Thursday * Increase long-acting morphine, continue short-acting narcotic and Celebrex, and tramadol * Will increase Neurontin at this time and ramp dose up as needed based on house tolerated * Continue current treatment of nausea * Continue current steroids and bronchodilators * Palliative care discussions ongoing * Continue social work and discharge planning efforts to try and set her up for best success after discharge I reviewed her case and treatment issues in detail today with Dr. Sho Chao SUBJECTIVE: Again today complains of increasing pain in the right chest axilla and medial right arm. She still complains of some burning and tingling at the lateral right chest but with sharp pain and ache in other parts of the chest. We had started Neurontin yesterday, so far no real improvement at current dose but no side effects. Still using her other multiple pain medicines Today no nausea eating better No worsening of shortness of breath, no cough or fever symptoms OBJECTIVE Vitals reviewed: Some mild intermittent tachycardia otherwise stable without fever Real Estate Photographer, my review: Exam: alert oriented, looks uncomfortable skin warm dry color ok no jaundice resps mildly labored lungs markedly diminished BSs but no rales or rhonchi or wheeze heart regular abd soft nondistended nontender, bowel sounds present limbs warm, no edema iv site ok Objective: Vital Signs Temp Pulse Resp BP Pulse Ox 36.8 C 108 H 17 103/66 88 L 01/23/18 08:07 01/23/18 08:07 01/23/18 08:07 01/23/18 08:07 01/23/18 08:07 Laboratory Results 01/19/18 04:36 01/22/18 01/23/18 01/24/18 06:59 06:59 06:59 Intake Total 3007 1300 Output Total 2500 2150 350 Balance 507 -850 -350 ICD10 Worksheet Patient Problems: Problems Problem Status Onset Breast cancer Acute Cancer associated pain Acute Dehydration Acute Pulmonary embolism Acute
[2018-01-23] MEDS: LORazepam 0.5 MG TAB PO PRN (12:31)
--- NOTE | 2018-01-23 13:03 | SOAPPROG ---
SOAP Progress Note Assessment/Plan: Assessment/Plan: 57 yo woman w unresectable NSCLC receiving palliative XRT due to rib erosion/ pain 1. lung ca - palliative XRT for now follow up Dr Weller for systemic options as outpt pt is homeless so trying to figure out dispo 2. Hypercalcemia of malignacy - better s/p zometa, ionized Ca now low 3. COPD - on chronic O2 4. Pain - would increase baseline morphine to 30mg po BID and increase gabapentin cont steroids and would probably d/c celebrex and tramadol pt w very extensive dz - reviewed films myself given severity and description of pain, consider MRI thoracic spine Dispo plan pending 01/23/18 12:59 01/23/18 13:08 Subjective: c/o severe pain today over R chest Objective: Vital Signs Temp Pulse Resp BP Pulse Ox 36.5 C 96 16 122/85 H 90 L 01/23/18 12:48 01/23/18 12:48 01/23/18 12:48 01/23/18 12:48 01/23/18 12:48 Laboratory Results 01/19/18 04:36 01/22/18 01/23/18 01/24/18 05:59 05:59 05:59 Intake Total 3007 1300 Output Total 2400 2250 1350 Balance 607 -950 -1350 Gen - in distress 2/2 pain HEENT - anicteric CV - RRR Chest - BS Right upper upper abd - BS= Ext - rachele Neuro -nonfocal ICD10 Worksheet Patient Problems: Problems Problem Status Onset Breast cancer Acute Cancer associated pain Acute Dehydration Acute Pulmonary embolism Acute
[2018-01-23] MEDS: HYDROmorphONE/DILAUDID 1 MG/ML INJ IVP PRN ×2 (14:56→22:48)
[2018-01-23] MEDS: FAMOTIDINE 20 MG TAB PO SCH (20:29)
[2018-01-24] MEDS: HYDROmorphONE/DILAUDID 2 MG TAB PO PRN ×2 (00:18→10:37)
[2018-01-24] MEDS: PROMETHAZINE HCL 25 MG/ML INJ IVP PRN (00:19)
[2018-01-24] MEDS: ONDANSETRON 4 MG/2 ML VIAL IVP SCH ×6 (02:34→20:36)
[2018-01-24] MEDS: HYDROmorphONE/DILAUDID 1 MG/ML INJ IVP PRN ×5 (03:50→21:54)
[2018-01-24] MEDS: IPRATROPIUM/ALBUTEROL 3 ML DEYVIAL IH SCH ×4 (05:21→20:37)
[2018-01-24] MEDS: FAMOTIDINE 20 MG TAB PO SCH ×2 (08:26→20:34)
[2018-01-24] MEDS: GABAPENTIN 300 MG CAP PO SCH ×2 (08:26→20:36)
[2018-01-24] MEDS: FUROSEMIDE 40 MG TAB PO SCH (08:26)
[2018-01-24] MEDS: DEXAMETHASONE 4 MG TAB PO SCH ×2 (08:26→20:36)
[2018-01-24] MEDS: NICOTINE 14 MG/24 HR PATCH TD SCH (08:28)
[2018-01-24] MEDS: morphINE SR 15 MG TAB PO SCH ×2 (08:28→20:35)
[2018-01-24] MEDS: DIAZEPAM 2 MG TAB PO SCH ×2 (08:28→20:36)
[2018-01-24] MEDS: RIVAROXABAN 15 MG TAB PO SCH (08:28)
[2018-01-24] MEDS: LORazepam 0.5 MG TAB PO PRN (10:36)
--- NOTE | 2018-01-24 18:18 | HOSPPROG ---
Hospitalist Progress Note Assessment/Plan: DIAGNOSES: * uncontrolled pain of cancer * Continued pain on long and short-acting narcotics, Celebrex, tramadol and now Neurontin * Recent increases in long-acting narcotic and Neurontin doses have not benefit her. * recently diagnosed unresectable lung cancer, metastatic disease * Extremely large mass in the right upper lung with invasion into anterior ribs and intercostal soft tissue * hypercalcemia of malignancy * Resolved after a dose of Zometa and IV hydration * acute on chronic hypoxemic respiratory failure/COPD exacerbation * Stable at this time though still requiring 5 L oxygen * intractable nausea vomiting * Improved today and yesterday * homelessness PLANS: * Continue current radiation treatments, last treatment should be two days from now on Thursday * Increase long-acting morphine, continue short-acting narcotic and Celebrex, and tramadol * Will increase Neurontin at this time and ramp dose up as needed based on house tolerated * Continue current treatment of nausea * Continue current steroids and bronchodilators * Continue social work and discharge planning efforts to try and set her up for best success after discharge. She is homeless. It sounds like the best situation may end up being a homeless retirement. Discharge planning continuing to research other options * Outpatient follow up with Dr. Weller when she is discharged, consideration for possible chemotherapy options I reviewed her case and treatment issues in detail today with Dr. Sho Chao SUBJECTIVE: Continued severe chest pain with little benefit so far from increase in the MS Contin and increasing the gabapentin both yesterday. Still some shortness of breath unchanged from prior. Eating a little better. No other changes in her symptoms OBJECTIVE Vitals reviewed: Some mild intermittent tachycardia otherwise stable without fever Process Area Supervisor, my review: Exam: alert oriented, looks uncomfortable skin warm dry color ok no jaundice resps mildly labored lungs markedly diminished BSs but no rales or rhonchi or wheeze heart regular abd soft nondistended nontender, bowel sounds present limbs warm, no edema iv site ok Objective: Vital Signs Temp Pulse Resp BP Pulse Ox 36.8 C 102 H 16 133/83 H 92 01/24/18 13:08 01/24/18 17:12 01/24/18 17:12 01/24/18 15:22 01/24/18 17:12 Laboratory Results 01/19/18 04:36 01/23/18 01/24/18 01/25/18 06:59 06:59 06:59 Intake Total 1300 1650 Output Total 7071 5369 Balance -850 -6374 ICD10 Worksheet Patient Problems: Problems Problem Status Onset Breast cancer Acute Cancer associated pain Acute Dehydration Acute Pulmonary embolism Acute
[2018-01-24] MEDS: traMADol 50 MG TAB PO PRN (23:39)
[2018-01-25] MEDS: ONDANSETRON 4 MG/2 ML VIAL IVP SCH ×4 (03:10→13:09)
[2018-01-25] MEDS: HYDROmorphONE/DILAUDID 2 MG TAB PO PRN ×3 (04:19→22:46)
[2018-01-25] MEDS: IPRATROPIUM/ALBUTEROL 3 ML DEYVIAL IH SCH ×4 (06:23→21:01)
[2018-01-25] MEDS: traMADol 50 MG TAB PO PRN (07:39)
[2018-01-25] MEDS: morphINE SR 15 MG TAB PO SCH ×2 (07:40→20:44)
[2018-01-25] MEDS: FAMOTIDINE 20 MG TAB PO SCH (07:40)
[2018-01-25] MEDS: RIVAROXABAN 15 MG TAB PO SCH (07:41)
[2018-01-25] MEDS: DIAZEPAM 2 MG TAB PO SCH ×2 (07:41→20:44)
[2018-01-25] MEDS: DEXAMETHASONE 4 MG TAB PO SCH ×2 (07:41→20:44)
[2018-01-25] MEDS: FUROSEMIDE 40 MG TAB PO SCH (07:41)
[2018-01-25] MEDS: GABAPENTIN 300 MG CAP PO SCH ×2 (07:41→20:43)
[2018-01-25] MEDS: NICOTINE 14 MG/24 HR PATCH TD SCH (07:42)
--- NOTE | 2018-01-25 10:11 | ASMTCMCOM ---
CM Note CM Note Notes: Met with patient again per her request. She is consumed with worry over housing and the ability to have her oxygen. [id number] filled out and faxed. Email to [employer] to screen. She seems unable to complete the simpest tasks and reports she is unable to complete mily paperwork that was provided from [facility]. I will sent referrals to area SNFS. CM to follow. Plan: SNF rehab with rat exterminator medicaid. Date Signed: 01/25/2018 10:10 AM Electronically Signed By:Dottie Mason RN
--- NOTE | 2018-01-25 16:24 | HOSPPROG ---
Hospitalist Progress Note Assessment/Plan: * Metastatic lung cancer -invasion into ribs/mediastinum - difficult to control pain -palliative XRT -MS contin, gabapentin, Decadron * Hypercalcemia of malignancy -s/p Zometa * Acute on chronic respiratory failure 5L * COPD/tobacco abuse -nebs * Edema - IV lasix x 1 * Obesity BMI 36 * h/o PE -Xarelto Subjective: No new complaints. Objective: Vital Signs Temp Pulse Resp BP Pulse Ox 36.8 C 99 18 106/85 H 98 01/25/18 11:45 01/25/18 11:45 01/25/18 11:45 01/25/18 11:45 01/25/18 11:45 Laboratory Results 01/19/18 04:36 01/24/18 01/25/18 01/26/18 05:59 05:59 05:59 Intake Total 1650 450 Output Total 4750 800 Balance -3100 -350 d/w Dr. Jacqueline Russell regarding treatment plan CT chest - large tumor invading ribs and mediastinum - Physical Exam Constitutional: no apparent distress, appears nourished, not in pain Cardiovascular: regular rate and rhythym, edema, No systolic murmur Respiratory: no respiratory distress, no rales or rhonchi, clear to auscultation Gastrointestinal: normoactive bowel sounds, soft, non-tender abdomen, no palpable masses Skin: no rashes or abrasions, no fluctuance, no induration Neurologic: AAOx3, sensation intact bilaterally Psychiatric: interacting appropriately, not anxious, not encephalopathic, thought process linear ICD10 Worksheet Patient Problems: Problems Problem Status Onset Breast cancer Acute Cancer associated pain Acute Dehydration Acute Pulmonary embolism Acute
[2018-01-25] MEDS ORDERED: FUROSEMIDE 40 MG/4 ML VIAL IVP ONE (16:27)
[2018-01-25] MEDS: HYDROmorphONE/DILAUDID 1 MG/ML INJ IVP PRN ×2 (18:53→22:37)
[2018-01-25] MEDS: LORazepam 0.5 MG TAB PO PRN (20:56)
[2018-01-25] MEDS: ONDANSETRON 4 MG/2 ML VIAL IVP PRN (22:36)
[2018-01-26] MEDS: PROMETHAZINE HCL 25 MG/ML INJ IVP PRN (00:23)
[2018-01-26] MEDS: HYDROmorphONE/DILAUDID 2 MG TAB PO PRN ×3 (03:48→13:58)
[2018-01-26] MEDS: ONDANSETRON 4 MG/2 ML VIAL IVP PRN ×2 (03:49→16:45)
[2018-01-26 05:04] LABS: PLATELET COUNT 305 10^3/uL (150-400)
[2018-01-26] MEDS: IPRATROPIUM/ALBUTEROL 3 ML DEYVIAL IH SCH ×3 (05:32→15:15)
[2018-01-26] MEDS: DIAZEPAM 2 MG TAB PO SCH ×2 (08:38→20:53)
[2018-01-26] MEDS: DEXAMETHASONE 4 MG TAB PO SCH ×2 (08:39→20:52)
[2018-01-26] MEDS: morphINE SR 15 MG TAB PO SCH ×2 (08:39→20:51)
[2018-01-26] MEDS: FUROSEMIDE 40 MG TAB PO SCH (08:39)
[2018-01-26] MEDS: RIVAROXABAN 15 MG TAB PO SCH (08:39)
[2018-01-26] MEDS: GABAPENTIN 300 MG CAP PO SCH ×2 (08:47→20:53)
[2018-01-26] MEDS: HYDROmorphONE/DILAUDID 1 MG/ML INJ IVP PRN ×3 (11:33→23:10)
[2018-01-26] MEDS: ONDANSETRON DISINTEGRATING 4 MG TAB PO PRN ×2 (15:30→20:52)
[2018-01-26] MEDS ORDERED: PROMETHAZINE HCL 25 MG/ML INJ IVP PRN (17:11)
[2018-01-26] MEDS ORDERED: BISACODYL 10 MG SUPP PR PRN (17:33)
[2018-01-26] MEDS ORDERED: POLYETHYLENE GLYCOL 3350 17 GM PKT PO PRN (17:33)
[2018-01-26] MEDS ORDERED: LACTULOSE 20 GM/30 ML UDCUP PO PRN (17:33)
[2018-01-26] MEDS ORDERED: IPRATROPIUM/ALBUTEROL 3 ML DEYVIAL IH PRN (17:34)
[2018-01-26] MEDS ORDERED: FUROSEMIDE 40 MG/4 ML VIAL IVP ONE (17:35)
--- NOTE | 2018-01-26 17:36 | HOSPPROG ---
Hospitalist Progress Note Assessment/Plan: * Metastatic lung cancer -invasion into ribs/mediastinum - difficult to control pain -palliative XRT -MS contin, gabapentin, Decadron * Hypercalcemia of malignancy -s/p Zometa * Acute on chronic respiratory failure 5L -recheck CXR in am * COPD/tobacco abuse -nebs * Edema - IV lasix * Obesity BMI 36 * h/o PE -Xarelto Subjective: c/o severe 9/10 pain with burning, also constipated/gas Objective: Vital Signs Temp Pulse Resp BP Pulse Ox 36.7 C 97 20 127/90 H 95 01/26/18 15:09 01/26/18 15:11 01/26/18 15:09 01/26/18 15:09 01/26/18 15:11 Laboratory Results 01/26/18 04:48 01/26/18 04:48 01/25/18 01/26/18 01/27/18 05:59 05:59 05:59 Intake Total 450 1140 950 Output Total 800 2400 1500 Balance -350 -1260 -550 d/w DR. Trinidad regarding prognosis - Physical Exam Constitutional: no apparent distress, appears nourished, not in pain Cardiovascular: regular rate and rhythym, no murmur, rub, or gallop, edema Respiratory: no respiratory distress, no rales or rhonchi, clear to auscultation Gastrointestinal: normoactive bowel sounds, soft, non-tender abdomen, no palpable masses Skin: no rashes or abrasions, no fluctuance, no induration Neurologic: AAOx3, sensation intact bilaterally Psychiatric: interacting appropriately, not anxious, not encephalopathic, thought process linear ICD10 Worksheet Patient Problems: Problems Problem Status Onset Breast cancer Acute Cancer associated pain Acute Dehydration Acute Pulmonary embolism Acute
[2018-01-26] MEDS: SENNOSIDES/DOCUSATE SODIUM TAB PO SCH (20:54)
[2018-01-26] MEDS: DIAZEPAM 2 MG TAB PO PRN (23:10)
[2018-01-27] MEDS: ONDANSETRON DISINTEGRATING 4 MG TAB PO PRN ×2 (07:49→13:13)
[2018-01-27] MEDS: HYDROmorphONE/DILAUDID 1 MG/ML INJ IVP PRN ×3 (07:53→18:29)
[2018-01-27] MEDS: FUROSEMIDE 40 MG TAB PO SCH (08:29)
[2018-01-27] MEDS: GABAPENTIN 300 MG CAP PO SCH ×2 (08:29→20:26)
[2018-01-27] MEDS: DEXAMETHASONE 4 MG TAB PO SCH ×2 (08:29→20:26)
[2018-01-27] MEDS: RIVAROXABAN 15 MG TAB PO SCH (08:29)
[2018-01-27] MEDS: SENNOSIDES/DOCUSATE SODIUM TAB PO SCH ×2 (08:29→20:42)
[2018-01-27] MEDS: morphINE SR 15 MG TAB PO SCH ×2 (08:30→20:26)
[2018-01-27] MEDS: DIAZEPAM 2 MG TAB PO SCH ×2 (08:30→20:25)
--- NOTE | 2018-01-27 13:40 | ASMTCMCOM ---
CM Note CM Note Notes: I spoke with Santos from [facility] who plans to assess patient this afternoon or tomorrow morning. Bettye has agreed to follow for outpatient palliative care. 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 Case Management will continue to follow. Date Signed: 01/27/2018 01:39 PM Electronically Signed By:Pat Iqbal RN
[2018-01-27] MEDS: FUROSEMIDE 40 MG/4 ML VIAL IVP SCH (15:01)
--- NOTE | 2018-01-27 15:56 | HOSPPROG ---
Hospitalist Progress Note Assessment/Plan: * Metastatic lung cancer -invasion into ribs/mediastinum - difficult to control pain -palliative XRT -MS contin, gabapentin, Decadron * Hypercalcemia of malignancy -s/p Zometa * Acute on chronic respiratory failure 5L -suspect 5L is now baseline * COPD/tobacco abuse -nebs * Edema - IV lasix * Obesity BMI 36 * h/o PE -Xarelto Subjective: no new complaints. Objective: Vital Signs Temp Pulse Resp BP Pulse Ox 36.8 C 101 H 14 130/81 H 98 01/27/18 15:36 01/27/18 15:36 01/27/18 15:36 01/27/18 15:36 01/27/18 15:36 Laboratory Results 01/26/18 04:48 01/26/18 04:48 01/26/18 01/27/18 01/28/18 05:59 05:59 05:59 Intake Total 1140 950 750 Output Total 2400 1500 1900 Balance -1260 -550 -1150 d/w Dr. Russell regarding mental status improvement CXR - mass but otherwise negative - personally viewed and interpreted - Physical Exam Constitutional: no apparent distress, appears nourished, not in pain Cardiovascular: regular rate and rhythym, no murmur, rub, or gallop Respiratory: no respiratory distress, no rales or rhonchi, clear to auscultation Gastrointestinal: normoactive bowel sounds, soft, non-tender abdomen, no palpable masses Skin: no rashes or abrasions, no fluctuance, no induration Neurologic: AAOx3, sensation intact bilaterally Psychiatric: interacting appropriately, not anxious, not encephalopathic, thought process linear ICD10 Worksheet Patient Problems: Problems Problem Status Onset Breast cancer Acute Cancer associated pain Acute Dehydration Acute Pulmonary embolism Acute
[2018-01-27] MEDS: HYDROmorphONE/DILAUDID 2 MG TAB PO PRN (16:43)
[2018-01-27] MEDS ORDERED: SIMETHICONE 80 MG TAB CHEW PO PRN (16:51)
--- NOTE | 2018-01-27 17:08 | SOAPPROG ---
SOAP Progress Note Assessment/Plan: A/P: 57 yo woman with unresectable NSCLC, s/p palliative RT for chest pain/chest wall involvement. * NSCLC: locally advanced, s/p palliative RT. PD-L1 10%. She wants to pursue systemic therapy. She needs consistent living situation and dispo plans are in progress. - f/u with Dr. Weller as outpatient to discuss chemotherapy options. * Hypercalcemia of malignancy: improved after Zometa. * COPD: chronic O2 * Pain. * Dispo: pt is homeless, working on SNF. 01/27/18 17:04 Subjective: Sitting up eating dinner. Still complains of right chest pain. "Gas pain" on left. O: VS reviewed. Gen: chronically ill-appearing. Lungs: decreased BS right. Objective: Vital Signs Temp Pulse Resp BP Pulse Ox 36.8 C 101 H 14 130/81 H 98 01/27/18 15:36 01/27/18 15:36 01/27/18 15:36 01/27/18 15:36 01/27/18 15:36 Laboratory Results 01/26/18 04:48 01/26/18 04:48 01/26/18 01/27/18 01/28/18 05:59 05:59 05:59 Intake Total 1140 950 750 Output Total 2400 1500 1900 Balance -1260 -550 -1150 ICD10 Worksheet Patient Problems: Problems Problem Status Onset Breast cancer Acute Cancer associated pain Acute Dehydration Acute Pulmonary embolism Acute
[2018-01-28] MEDS: HYDROmorphONE/DILAUDID 2 MG TAB PO PRN ×3 (05:18→15:40)
[2018-01-28] MEDS: ONDANSETRON DISINTEGRATING 4 MG TAB PO PRN ×2 (05:26→11:42)
[2018-01-28] MEDS: GABAPENTIN 300 MG CAP PO SCH ×2 (08:33→19:52)
[2018-01-28] MEDS: RIVAROXABAN 15 MG TAB PO SCH (08:33)
[2018-01-28] MEDS: SENNOSIDES/DOCUSATE SODIUM TAB PO SCH ×3 (08:33→19:58)
[2018-01-28] MEDS: FUROSEMIDE 40 MG/4 ML VIAL IVP SCH ×2 (08:33→15:30)
[2018-01-28] MEDS: DEXAMETHASONE 4 MG TAB PO SCH (08:33)
[2018-01-28] MEDS: morphINE SR 15 MG TAB PO SCH ×2 (08:33→19:51)
[2018-01-28] MEDS: DIAZEPAM 2 MG TAB PO SCH ×2 (08:33→19:51)
[2018-01-28] MEDS ORDERED: HYDROmorphONE/DILAUDID 1 MG/ML INJ IVP PRN (10:31)
[2018-01-28] MEDS: LORazepam 0.5 MG TAB PO PRN (11:32)
--- NOTE | 2018-01-28 14:05 | ASMTCMCOM ---
CM Note CM Note Notes: Santos from [facility] evaluated pt today. They are considering taking pt and Santos had questions about chemo plan though Medicaid will cover the cost. They are more concerned with if they can accomodate pt while she is getting chemo. He will let [facility] know once he discusses with DON. Lisa Obando at [facility] (([phone]) has approved pt for LTC medicaid bed and just needs to complete paperwork once facility in place. Date Signed: 01/28/2018 02:05 PM Electronically Signed By:Janet Suarez LCSW
[2018-01-28] MEDS: DIAZEPAM 2 MG TAB PO PRN (14:23)
--- NOTE | 2018-01-28 15:21 | HOSPPROG ---
Hospitalist Progress Note Assessment/Plan: * Metastatic lung cancer -invasion into ribs/mediastinum - difficult to control pain -s/p palliative XRT -follow up with Dr. Weller as outpatient to determine chemo -MS contin, gabapentin, Decadron * Hypercalcemia of malignancy -s/p Zometa * Acute on chronic respiratory failure 4L -suspect 4L is now baseline * COPD/tobacco abuse -nebs * Edema - PO lasix * Obesity BMI 36 * h/o PE -Xarelto Subjective: SOB at night Objective: Vital Signs Temp Pulse Resp BP Pulse Ox 36.7 C 93 16 108/72 91 L 01/28/18 12:00 01/28/18 12:00 01/28/18 12:00 01/28/18 12:00 01/28/18 12:00 Laboratory Results 01/26/18 04:48 01/26/18 04:48 01/27/18 01/28/18 01/29/18 05:59 05:59 05:59 Intake Total 950 1250 Output Total 1500 4900 Balance -550 -3650 - Physical Exam Constitutional: no apparent distress, appears nourished, not in pain Cardiovascular: regular rate and rhythym, edema Respiratory: no respiratory distress, no rales or rhonchi, clear to auscultation Gastrointestinal: normoactive bowel sounds, soft, non-tender abdomen, no palpable masses Skin: no rashes or abrasions, no fluctuance, no induration Neurologic: AAOx3, sensation intact bilaterally Psychiatric: interacting appropriately, not anxious, not encephalopathic, thought process linear ICD10 Worksheet Patient Problems: Problems Problem Status Onset Breast cancer Acute Cancer associated pain Acute Dehydration Acute Pulmonary embolism Acute
[2018-01-28] MEDS: FUROSEMIDE 40 MG TAB PO SCH (15:41)
--- NOTE | 2018-01-28 16:01 | ASMTCMCOM ---
CM Note CM Note Notes: CM met with PT. Pt was told about funds available to her from [employer]; she was asked if there was something special she could use. She immediately asked for a phone. Information was passed on so that a purchase can be made. Date Signed: 01/28/2018 04:01 PM Electronically Signed By:Carol Gomez
[2018-01-28] MEDS ORDERED: FUROSEMIDE 40 MG TAB PO SCH (21:00)
[2018-01-29] MEDS: DIAZEPAM 2 MG TAB PO PRN ×2 (02:00→15:48)
[2018-01-29] MEDS: HYDROmorphONE/DILAUDID 2 MG TAB PO PRN ×4 (02:00→19:33)
[2018-01-29] MEDS: ONDANSETRON DISINTEGRATING 4 MG TAB PO PRN ×3 (07:44→19:32)
[2018-01-29] MEDS: morphINE SR 15 MG TAB PO SCH ×2 (07:47→21:11)
[2018-01-29] MEDS: GABAPENTIN 300 MG CAP PO SCH ×3 (07:47→21:11)
[2018-01-29] MEDS: DIAZEPAM 2 MG TAB PO SCH ×2 (07:47→21:11)
[2018-01-29] MEDS: FUROSEMIDE 40 MG TAB PO SCH ×3 (07:47→17:00)
[2018-01-29] MEDS: SENNOSIDES/DOCUSATE SODIUM TAB PO SCH (07:48)
[2018-01-29] MEDS: RIVAROXABAN 15 MG TAB PO SCH (07:48)
[2018-01-29] MEDS ORDERED: DEXAMETHASONE 4 MG TAB PO SCH (09:00)
[2018-01-29] MEDS: FLUTICASONE/SALMETER 250/50MCG DISKUS IH SCH ×3 (10:48→21:03)
[2018-01-29] MEDS: IPRATROPIUM/ALBUTEROL 3 ML DEYVIAL IH SCH ×2 (10:48→10:51)
--- NOTE | 2018-01-29 15:27 | HOSPPROG ---
Hospitalist Progress Note Assessment/Plan: * Metastatic lung cancer -invasion into ribs/mediastinum - difficult to control pain -s/p palliative XRT -follow up with Dr. Weller as outpatient to determine chemo -MS contin, gabapentin -d/w Dr. Russell - no utility to Decadron post XRT - wean off * Hypercalcemia of malignancy -s/p Zometa * Acute on chronic respiratory failure -suspect 3L is now baseline * COPD/tobacco abuse -nebs * Edema - PO lasix * Obesity BMI 36 * h/o PE -Xarelto * Toxic/metabolic encephalopathy -improved Subjective: Severe SOB at night Objective: Vital Signs Temp Pulse Resp BP Pulse Ox 37.2 C 99 18 102/75 97 01/29/18 12:00 01/29/18 12:00 01/29/18 12:00 01/29/18 12:00 01/29/18 12:00 Laboratory Results 01/26/18 04:48 01/26/18 04:48 01/28/18 01/29/18 01/30/18 05:59 05:59 05:59 Intake Total 1250 1300 Output Total 4900 150 Balance -3650 1150 CXR viewed, my personal interpretation is - tumor stable, no other findings case d/w dr. russell regarding decadron plan - Physical Exam Constitutional: no apparent distress, appears nourished, not in pain Cardiovascular: regular rate and rhythym, no murmur, rub, or gallop, edema (3-4+ ) Respiratory: no respiratory distress, no rales or rhonchi, clear to auscultation Gastrointestinal: normoactive bowel sounds, soft, non-tender abdomen, no palpable masses Skin: no rashes or abrasions, no fluctuance, no induration Neurologic: AAOx3, sensation intact bilaterally Psychiatric: interacting appropriately, not anxious, not encephalopathic, thought process linear ICD10 Worksheet Patient Problems: Problems Problem Status Onset Breast cancer Acute Cancer associated pain Acute Dehydration Acute Pulmonary embolism Acute
[2018-01-29] MEDS ORDERED: IPRATROPIUM/ALBUTEROL 3 ML DEYVIAL IH PRN (15:36)
--- NOTE | 2018-01-29 16:29 | ASMTCMCOM ---
CM Note CM Note Notes: Per Santos at [facility], the information systems administrator has agreed to accept pt but the financial office has not approved yet. Asked Lisa Obando at [facility] ([phone]) to fax a tentative approval to [facility] so that if the approval comes before the endof the day, pt can DC there over the weekend. Santos is unclear if this will happen by the end of the day and pt may need to remain at [facility] over the weekend. CM to follow. Date Signed: 01/29/2018 04:28 PM Electronically Signed By:Janet Suarez LCSW
--- NOTE | 2018-01-29 17:01 | SOAPPROG ---
SOAP Progress Note Assessment/Plan: A/P: 57 yo woman with unresectable NSCLC, s/p palliative RT for chest pain/chest wall involvement. * NSCLC: locally advanced, s/p palliative RT. PD-L1 10%. She wants to pursue systemic therapy. She needs consistent living situation and dispo plans are in progress. - f/u with Dr. Weller as outpatient to discuss chemotherapy options. * Hypercalcemia of malignancy: improved after Zometa. * COPD: chronic O2 * Pain. * Dispo: pt is homeless, working on SNF. 01/29/18 17:00 Subjective: Up in room, talkative with staff and on the phone. O: VS reviewed. Gen: as above. No labs. Objective: Vital Signs Temp Pulse Resp BP Pulse Ox 36.8 C 107 H 16 107/72 94 01/29/18 16:22 01/29/18 16:22 01/29/18 16:22 01/29/18 16:22 01/29/18 16:22 Laboratory Results 01/26/18 04:48 01/26/18 04:48 01/28/18 01/29/18 01/30/18 05:59 05:59 05:59 Intake Total 1250 1300 500 Output Total 4900 150 1000 Balance -3650 1150 -500 ICD10 Worksheet Patient Problems: Problems Problem Status Onset Breast cancer Acute Cancer associated pain Acute Dehydration Acute Pulmonary embolism Acute
[2018-01-29] MEDS: LORazepam 0.5 MG TAB PO PRN (19:42)
[2018-01-30] MEDS: HYDROmorphONE/DILAUDID 2 MG TAB PO PRN ×4 (02:16→15:51)
[2018-01-30] MEDS: ONDANSETRON DISINTEGRATING 4 MG TAB PO PRN ×4 (02:16→15:52)
[2018-01-30] MEDS: DIAZEPAM 2 MG TAB PO SCH ×2 (08:09→22:30)
[2018-01-30] MEDS: FUROSEMIDE 40 MG TAB PO SCH ×2 (08:10→14:47)
[2018-01-30] MEDS: morphINE SR 15 MG TAB PO SCH ×2 (08:10→21:01)
[2018-01-30] MEDS: RIVAROXABAN 20 MG TAB PO SCH (08:11)
[2018-01-30] MEDS: GABAPENTIN 300 MG CAP PO SCH ×3 (08:11→21:01)
[2018-01-30] MEDS: FLUTICASONE/SALMETER 250/50MCG DISKUS IH SCH ×2 (08:14→21:08)
--- NOTE | 2018-01-30 10:27 | ASMTCMCOM ---
CM Note CM Note Notes: CM call to [facility], given [phone] to reach Santos. CM left message stating I am calling to inquire about status of patient discharge to [facility]. D/C date TBD. CM to follow. D/C Plan: [facility] upon approval. Date Signed: 01/30/2018 10:26 AM Electronically Signed By:Cynthia Lemon
[2018-01-30] MEDS: LORazepam 0.5 MG TAB PO PRN (14:47)
[2018-01-30] MEDS: MAGNESIUM HYDROXIDE 30 ML UDCUP PO PRN (15:52)
--- NOTE | 2018-01-30 16:10 | HOSPPROG ---
Hospitalist Progress Note Assessment/Plan: Assessment: 57-year-old female presents with acute on chronic respiratory failure secondary to acute COPD exacerbation complicated by acute hypercalcemia of malignancy and persistent pain secondary to metastatic lung cancer Plan: * Metastatic lung cancer w/ invasion into ribs/mediastinum - difficult to control pain -s/p palliative XRT -d/w Dr. Montelongo, he recommends follow up with Dr. Weller as outpatient to determine chemo and ensure patient is capable of adhering to f/u -MS contin, gabapentin (increase to 900mg tid) w/ PO PRN dilaudid for breakthrough -weaning off decadron -counseled patient extensively regarding the above, reassured her our staff will address last night's occurrence * Hypercalcemia of malignancy -s/p Zometa -repeat Ca level in AM * Acute on chronic respiratory failure 2/2 acute COPD exacerbation, was not previously on supplemental o2 and is now requiring 3-4LPM * COPD - acute exacerbation, s/p scheduled duonebs and steroids, de-escalated nebs to PRN * Edema - PO lasix * Morbid Obesity BMI 38, w/ increased risk of worsening mobility * h/o PE - cont Xarelto * Acute metabolic encephalopathy 2/2 hypercalcemia, resolved, patient has a marginal baseline w/ limited insight * Acute hyponatremia - 2/2 primary polydipsia and patient has limited appreciation for its impact on serum electrolytes -1.5L/day fluid restriction -Teofilo level Diet. Regular PPx. High risk, lovenox 40 Code. Full Dispo. ADD uncertain, pending safe placement and stabilization of pain control, hyponatremia Subjective: patient upset about incident w/ staff last night; upset that we suggest she limit her PO intake of liquids; satisfied w/ pain control this AM; upset about it this PM Objective: Vital Signs Temp Pulse Resp BP Pulse Ox 36.6 C 117 H 12 123/61 H 98 01/30/18 12:00 01/30/18 15:46 01/30/18 15:46 01/30/18 12:00 01/30/18 15:46 Laboratory Results 01/26/18 04:48 01/30/18 04:11 01/29/18 01/30/18 01/31/18 05:59 05:59 05:59 Intake Total 1300 1900 1250 Output Total 150 2200 Balance 1150 -300 1250 - Time Spent With Patient Time Spent with Patient: greater than 35 minutes Time Spent with Patient: Greater than 35 minutes spent on this patients care, greater than 50% of time spent counseling, educating, and coordinating care regarding the above mentioned plan. - Physical Exam Constitutional: chronically ill appearing, obese, uncomfortable, No no apparent distress (mild) Cardiovascular: regular rate and rhythym, no murmur, rub, or gallop, edema (2+ bilat LE) Respiratory: no respiratory distress, no rales or rhonchi, clear to auscultation Gastrointestinal: normoactive bowel sounds, soft, non-tender abdomen, no palpable masses, No distension Skin: other (mild bruising on dorsum RUE) Neurologic: AAOx3 Psychiatric: not encephalopathic, anxious, flat affect, agitated, poor insight ICD10 Worksheet Patient Problems: Problems Problem Status Onset Breast cancer Acute Cancer associated pain Acute Dehydration Acute Pulmonary embolism Acute
[2018-01-30] MEDS ORDERED: POTASSIUM Cl (KCl) 40 MEQ in NS 1,000 ML IV SCH (16:30)
--- NOTE | 2018-01-30 17:08 | ASMTCMCOM ---
CM Note CM Note Notes: SANJAY received return call from Santos with [facility], he states he is still waiting on approval and will not be able to move forward until Thursday. CM to follow. Currently D/C Plan: Likely D/C to [facility] on Thursday. Date Signed: 01/30/2018 05:07 PM Electronically Signed By:Cynthia Lemon
[2018-01-31] MEDS: LORazepam 0.5 MG TAB PO PRN ×2 (04:24→14:15)
[2018-01-31] MEDS: RIVAROXABAN 20 MG TAB PO SCH (08:53)
[2018-01-31] MEDS: morphINE SR 15 MG TAB PO SCH ×2 (08:54→23:16)
[2018-01-31] MEDS: GABAPENTIN 300 MG CAP PO SCH ×3 (08:54→21:27)
[2018-01-31] MEDS: FLUTICASONE/SALMETER 250/50MCG DISKUS IH SCH ×2 (08:55→21:19)
[2018-01-31] MEDS: DIAZEPAM 2 MG TAB PO SCH (08:55)
[2018-01-31] MEDS ORDERED: NS 1,000 ML IV SCH (10:15)
[2018-01-31 11:16] LABS: PLATELET COUNT 217 10^3/uL (150-400)
--- NOTE | 2018-01-31 13:18 | CPEKG ---
Heart Rate: 103 RR Interval: 583 P-R Interval: 136 QRSD Interval: 132 QT Interval: 380 QTC Interval: 498 P [place]: 55 QRS [place]: 74 T Wave [place]: 24 EKG Severity - ABNORMAL ECG - EKG Impression: SINUS TACHYCARDIA EKG Impression: PROBABLE LEFT ATRIAL ABNORMALITY EKG Impression: RIGHT BUNDLE BRANCH BLOCK EKG Impression: PATTERN IS SUGGESTIVE OF RIGHT HEART STRAIN Electronically Signed By: Chucky Dolan 31-Jan-2018 22:55:20
--- NOTE | 2018-01-31 13:51 | HOSPPROG ---
Hospitalist Progress Note Assessment/Plan: Assessment: 57-year-old female presents with acute on chronic respiratory failure secondary to acute COPD exacerbation complicated by acute hypercalcemia of malignancy, persistent pain secondary to metastatic lung cancer, and acute encephalopathy Plan: * Acute encephalopathy. New, further w/u indicated. Evidenced by global brain dysfunction characterized as somnolence, confusion, agitation on 01/30 PM which was an acute change from her baseline and possibly 2/2 metabolic effects of worsening hyponatremia and toxic effects of uptitrating gabapentin -required restraints o/n, removed this AM after redirection -reducing dosage of gabapentin back to home dosage -evaluate for infxn w/ elevated PCT 7.5, get CXR, CBC, BCx, UA/UCx -CXR w/o new air space disease (personally interpreted) * Metastatic lung cancer w/ invasion into ribs/mediastinum - difficult to control pain -s/p palliative XRT -d/w Dr. Montelongo, he recommends follow up with Dr. Weller as outpatient to determine chemo and ensure patient is capable of adhering to f/u -MS contin, gabapentin (decrease back to 600mg tid) w/ PO PRN dilaudid for breakthrough -weaning off decadron * Hypercalcemia of malignancy -s/p Zometa -repeat Ca level in AM * Acute on chronic respiratory failure 2/2 acute COPD exacerbation, was not previously on supplemental o2 and is now requiring 3-4LPM * COPD - acute exacerbation, s/p scheduled duonebs and steroids, de-escalated nebs to PRN * Edema - holding lasix * Morbid Obesity BMI 38, w/ increased risk of worsening mobility * h/o PE - cont Xarelto * Acute hyponatremia - 2/2 primary polydipsia and renal hypoperfusion w/ Teofilo 16m, sinus tach on EKG (personally interpreted) indicating compensatory mechanism -1.5L/day fluid restriction -NS 100cc/hr Diet. Regular PPx. High risk, lovenox 40 Code. Full Dispo. ADD uncertain, pending safe placement and stabilization of pain control, hyponatremia Subjective: patient w/ acute mental status changes last PM and requiring restraints; calmer this AM w/ poor recollection of last night's events Objective: Vital Signs Temp Pulse Resp BP Pulse Ox 37.0 C 113 H 14 104/62 98 01/31/18 11:32 07/22/18 11:32 01/31/18 11:32 01/31/18 11:32 01/31/18 11:32 Laboratory Results 01/31/18 11:00 01/31/18 04:30 01/30/18 01/31/18 02/01/18 05:59 05:59 05:59 Intake Total 1900 1750 120 Output Total 2200 400 700 Balance -300 1350 -580 - Physical Exam Constitutional: no apparent distress, not in pain, chronically ill appearing, obese, No uncomfortable Cardiovascular: tachycardia, edema (2+ bilat LE), No systolic murmur, No irregularly irregular Respiratory: reduced air movement (R anterolateral superior seg), No expiratory wheeze, No inspiratory crackles, No bronchial breath sounds, No respiratory distress Gastrointestinal: normoactive bowel sounds, soft, non-tender abdomen, no palpable masses, distension (moderate panus) Neurologic: AAOx3, sensation intact bilaterally, CN II-XII Intact, No weakness ( motor 5/5 distal bilat LE) Psychiatric: not anxious, flat affect, poor insight, poor memory, other ( concentration 2/7), No agitated ICD10 Worksheet Patient Problems: Problems Problem Status Onset Breast cancer Acute Dehydration Acute Cancer associated pain Acute Pulmonary embolism Acute
[2018-01-31] MEDS: HYDROmorphONE/DILAUDID 2 MG TAB PO PRN (15:08)
[2018-01-31] MEDS: DIAZEPAM 2 MG TAB PO PRN (17:27)
--- NOTE | 2018-01-31 17:59 | CPEKG ---
Heart Rate: 112 RR Interval: 536 P-R Interval: 140 QRSD Interval: 126 QT Interval: 352 QTC Interval: 481 P [place]: 68 QRS [place]: 77 T Wave [place]: 20 EKG Severity - ABNORMAL ECG - EKG Impression: SINUS TACHYCARDIA EKG Impression: RIGHT BUNDLE BRANCH BLOCK Electronically Signed By: Chucky Dolan 31-Jan-2018 22:53:43
[2018-02-01] MEDS: DIAZEPAM 2 MG TAB PO SCH ×3 (01:40→20:55)
[2018-02-01] MEDS: LORazepam 0.5 MG TAB PO PRN (01:46)
[2018-02-01] MEDS: HYDROmorphONE/DILAUDID 2 MG TAB PO PRN ×3 (04:25→14:27)
[2018-02-01 06:36] LABS: PLATELET COUNT 185 10^3/uL (150-400)
--- NOTE | 2018-02-01 08:56 | SOAPPROG ---
SOAP Progress Note Assessment/Plan: Assessment: 57 yo woman with unresectable NSCLC, s/p palliative RT for chest pain/chest wall involvement. * NSCLC: locally advanced, s/p palliative RT. PD-L1 10%. She wants to pursue systemic therapy. She needs consistent living situation and dispo plans are in progress. - f/u with me as outpatient to discuss chemotherapy options. * Hypercalcemia of malignancy: resolved after Zometa. * COPD: chronic O2 * Pain. * Dispo: pt is homeless. Waiting on approval from [employer] * Malnutrition - albumin is 2.5 but patient is eating * Recent change in mental statu - patient seems back to baseline at this time * Pain - due to locally advanced NSCLC. Hopefully XRT will improve this but it is too early to see the full benefit. Plan: - SNF when possible - F/U with me as an outpatient for further staging and discussion of systemic therapy options vs best supportive care. Subjective: C/O R chest wall pain with movement. Legs also swollen and uncomfortable. Objective: Vital Signs Temp Pulse Resp BP Pulse Ox 36.8 C 115 H 18 90/41 L 95 02/01/18 07:16 02/01/18 07:16 02/01/18 07:16 02/01/18 07:16 02/01/18 07:16 Laboratory Results 02/01/18 06:18 02/01/18 06:18 01/30/18 01/31/18 02/01/18 23:59 23:59 23:59 Intake Total 2550 420 800 Output Total 200 1500 1500 Balance 2350 -1080 -700 Physical Exam - Physical Exam General Appearance: moderate distress Respiratory: rhonchi (R>L) Cardiac/Chest: regular rate, rhythm Abdomen: normal bowel sounds, other (obese. organomegally can't be determined clinically) Skin: warm/dry Extremities: swelling (3+ LE bilaterally) ICD10 Worksheet Patient Problems: Problems Problem Status Onset Breast cancer Acute Cancer associated pain Acute Dehydration Acute Pulmonary embolism Acute
[2018-02-01] MEDS: morphINE SR 15 MG TAB PO SCH ×2 (09:05→20:54)
[2018-02-01] MEDS: GABAPENTIN 300 MG CAP PO SCH ×3 (09:06→20:55)
[2018-02-01] MEDS: RIVAROXABAN 20 MG TAB PO SCH (09:07)
[2018-02-01] MEDS: FLUTICASONE/SALMETER 250/50MCG DISKUS IH SCH (09:37)
[2018-02-01] MEDS: DEXAMETHASONE 2 MG TAB PO SCH (10:13)
--- NOTE | 2018-02-01 11:44 | ASMTCMCOM ---
SANJAY Note CM Note Notes: Spoke with Santos from [facility] who states patient has been approved by [facility]. Santos will contact [facility], to get the paperwork and will call me back when they have it. Santos states they can take the patient today if she is ready. He would like her to have her chemotherapy treatment before she comes today if possible. SANJAY will follow. Date Signed: 02/01/2018 11:43 AM Electronically Signed By:Sydni Mcgregor LCSW
[2018-02-01] MEDS: ONDANSETRON DISINTEGRATING 4 MG TAB PO PRN ×2 (12:20→18:15)
[2018-02-01] MEDS: IPRATROPIUM/ALBUTEROL 3 ML DEYVIAL IH SCH ×3 (14:12→23:28)
--- NOTE | 2018-02-01 17:27 | HOSPPROG ---
Hospitalist Progress Note Assessment/Plan: Assessment: 57-year-old female presents with acute on chronic respiratory failure secondary to acute COPD exacerbation complicated by acute hypercalcemia of malignancy, persistent pain secondary to metastatic lung cancer, and acute encephalopathy Plan: * Acute encephalopathy. Evidenced by global brain dysfunction characterized as somnolence, confusion, agitation on 01/30 PM which was an acute change from her baseline and possibly 2/2 metabolic effects of worsening hyponatremia and toxic effects of uptitrating gabapentin, now stabilized -somnolent this AM s/p pain Rx, but cooperative -reduced dosage of gabapentin back to home dosage -may also be somewhat volume mediated, restarting steroid * Metastatic lung cancer w/ invasion into ribs/mediastinum - difficult to control pain -s/p palliative XRT -d/w Dr. Weller, he advises that patient's performance status is quite poor and he would not recommend systemic chemo for the next 4 weeks, but would recommend SNF w/ rehab, reassess performance status at 4 weeks, and then decide on whether to pursue chemo at that juncture -MS contin, gabapentin (decreased back to 600mg tid) w/ PO PRN dilaudid for breakthrough * Possible relative adrenal insufficiency. D/w Dr. Calvillo, we agree that patient 's constellation of hypotension/tachycardia/hyponatremia may be 2/2 rapid withdraw of steroids, and will restart dex 4mg daily now, gauge effect -recommend more gradual taper as oupt * Hypercalcemia of malignancy -s/p Zometa -repeat Ca level stable * Acute on chronic respiratory failure 2/2 acute COPD exacerbation, was not previously on supplemental o2 and is now requiring 3-4LPM * COPD - acute exacerbation, s/p scheduled duonebs and steroids, de-escalated nebs to PRN but has had reoccurrence of diffuse exp wheezing -restart scheduled duonebs * Chest pain - acute, no ischemic changes on EKG, neg trops * Edema - holding lasix * Morbid Obesity BMI 38, w/ increased risk of worsening mobility * h/o PE - cont Xarelto * Acute hyponatremia - 2/2 primary polydipsia and renal hypoperfusion w/ Teofilo 16m, sinus tach on EKG (personally interpreted) indicating compensatory mechanism -1.5L/day fluid restriction Diet. Regular PPx. High risk, lovenox 40 Code. Full Dispo. ADD uncertain, pending safe placement and stabilization of pain control, hyponatremia, hypotension High level of medical complexity w/ high-risk of worsening morbidity/mortality 2 /2 issues outlined above. Subjective: patient reports her legs hurt Objective: Vital Signs Temp Pulse Resp BP Pulse Ox 36.8 C 119 H 14 99/60 L 95 02/01/18 15:39 02/01/18 15:39 02/01/18 15:39 02/01/18 15:39 02/01/18 15:39 Laboratory Results 02/01/18 06:18 02/01/18 06:18 01/31/18 02/01/18 02/02/18 05:59 05:59 05:59 Intake Total 1750 920 260 Output Total 400 2500 950 Balance 1350 -1580 -690 - Physical Exam Constitutional: chronically ill appearing, obese, uncomfortable, unkempt, No not in pain (mild) Cardiovascular: tachycardia, edema (2+ bilat LE), No systolic murmur, No irregularly irregular Respiratory: expiratory wheeze, No reduced air movement, No inspiratory crackles , No respiratory distress Gastrointestinal: normoactive bowel sounds, soft, non-tender abdomen, no palpable masses, distension (moderate, panus) Neurologic: AAOx3, No facial droop Psychiatric: not anxious, flat affect, other (concentration 3/7, somnolent but arousable and follows commands), No agitated ICD10 Worksheet Patient Problems: Problems Problem Status Onset Breast cancer Acute Dehydration Acute Cancer associated pain Acute Pulmonary embolism Acute
[2018-02-01] MEDS: diphenhydrAMINE 25 MG CAP PO PRN (18:18)
[2018-02-02] MEDS: HYDROmorphONE/DILAUDID 2 MG TAB PO PRN (02:49)
[2018-02-02] MEDS: IPRATROPIUM/ALBUTEROL 3 ML DEYVIAL IH SCH ×2 (05:45→13:27)
[2018-02-02] MEDS: DIAZEPAM 2 MG TAB PO SCH (08:06)
[2018-02-02] MEDS: morphINE SR 15 MG TAB PO SCH (08:06)
[2018-02-02] MEDS: GABAPENTIN 300 MG CAP PO SCH ×2 (08:07→14:27)
[2018-02-02] MEDS: RIVAROXABAN 20 MG TAB PO SCH (08:07)
[2018-02-02] MEDS: DEXAMETHASONE 2 MG TAB PO SCH (08:07)
[2018-02-02] MEDS: ONDANSETRON DISINTEGRATING 4 MG TAB PO PRN (08:14)
[2018-02-02] MEDS: MAGNESIUM HYDROXIDE 30 ML UDCUP PO PRN (09:38)
--- NOTE | 2018-02-02 11:11 | SOAPPROG ---
SOAP Progress Note Assessment/Plan: Assessment: 57 yo woman with unresectable NSCLC, s/p palliative RT for chest pain/chest wall involvement. * NSCLC: locally advanced, s/p palliative RT. PD-L1 10%. She wants to pursue systemic therapy. She needs consistent living situation. Plans are for transfer to [place]. She will not be starting chemo for 4-6 weeks. 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 We will plan on an outpatient CT of the chest in about 4 weeks. * Hypercalcemia of malignancy: resolved after Zometa. Her CBC and CMP should be monitored weekly for the next 6 weeks * COPD: chronic O2 * Dispo: pt is homeless. Waiting on approval from [facility] * Malnutrition - albumin is 2.5 but patient is eating * Recent change in mental statu - patient seems back to baseline at this time * Pain - due to locally advanced NSCLC. Hopefully XRT will improve this but it is too early to see the full benefit. Plan: - SNF when possible - CT chest with contrast in about [address] the order in our outpatient software - F/U with me as an outpatient for further staging and discussion of systemic therapy options vs best supportive care Subjective: Ordering lunch. She is looking forward to going to [place] to get stronger. Objective: Vital Signs Temp Pulse Resp BP Pulse Ox 36.7 C 111 H 20 116/61 93 02/02/18 08:00 02/02/18 08:00 02/02/18 08:00 02/02/18 08:00 02/02/18 08:00 Laboratory Results 02/01/18 06:18 02/02/18 08:40 01/31/18 02/01/18 02/02/18 23:59 23:59 23:59 Intake Total 420 1060 Output Total 1500 3150 1000 Balance -1080 -2090 -1000 Physical Exam - Physical Exam General Appearance: alert, mild distress Respiratory: other (ronchi/rubs/wheezes R lung > L) Cardiac/Chest: regular rate, rhythm Abdomen: other (obese, nl bowel sounds) Skin: pallor Extremities: pedal edema (3+ bilateral) Neuro/Psych: alert ICD10 Worksheet Patient Problems: Problems Problem Status Onset Breast cancer Acute Cancer associated pain Acute Dehydration Acute Pulmonary embolism Acute
[2018-02-02] MEDS ORDERED: MAGNESIUM CITRATE 300 ML BOTTLE PO ONE (11:15)
--- NOTE | 2018-02-02 11:25 | PDIAF ---
- Diagnosis Diagnosis: RUL lung cancer, Hyponatremia, Chronic chest pain 2/2 malignancy, COPD Code Status: Full Code - Medication Management Discharge Medications: Medications to Continue on Transfer Albuterol [Proventil Inhaler HFA (*)] 2 puffs IH BID PRN 01/16/18 [Last Taken Unknown] Diazepam [Valium 2 MG (*)] 2 mg PO BID 01/16/18 [Last Taken Unknown] Furosemide [Lasix 40 MG (*)] 40 mg PO DAILY 01/16/18 [Last Taken Unknown] HYDROmorphone HCL [Dilaudid 2 mg (*)] 2 mg PO Q6 PRN 01/16/18 [Last Taken Unknown] Rivaroxaban [Xarelto 15mg (*)] 15 mg PO DAILY 01/16/18 [Last Taken Unknown] Dexamethasone [Decadron 2 MG (*)] 4 mg PO DAILY tab 02/02/18 [Last Taken Unknown] Gabapentin [Neurontin 300 MG (*)] 600 mg PO TID cap 02/02/18 [Last Taken Unknown] Ipratropium/Albuterol [Combivent Respimat Inhal Erwinna(*)] 1 inh IH QID #1 mdi [Last Taken Unknown] LORazepam [Ativan (*)] 0.5 - 1 mg PO Q6HRS PRN tab 02/02/18 [Last Taken Unknown ] Ondansetron Odt [Zofran Odt 4 mg (*)] 4 mg PO Q4HRS PRN tab 02/02/18 [Last Taken Unknown] Polyethylene Glycol 3350 [Miralax 17 gm (*)] 17 gm PO DAILY PRN pkt 02/02/18 [ Last Taken Unknown] Promethazine HCl [Phenergan 25mg (*)] 25 mg PO DAILY06 #30 tab 02/02/18 [Last Taken Unknown] Simethicone [Mylicon] 80 mg PO TID PRN tab.chew 02/02/18 [Last Taken Unknown] diphenhydrAMINE [Benadryl 25 MG (*)] 25 mg PO Q6HRS PRN cap 02/02/18 [Last Taken Unknown] morphINE SR [Ms Contin/Oramorph 15 mg (*)] 45 mg PO BID tab 02/02/18 [Last Taken Unknown] Snf Antibiotics: NA Additional Medication Instructions: Dex taper: take 4mg daily through 02/04/19; start 2mg daily on 02/05/18 and take through 02/10/18, then discontinue Discharge Medications: Refer to the Discharge Home Medication list for PRN reason. PICC Care - Routine: N/A - Orders Services needed: Registered Nurse, Certified Fabricating Machine Operator, Master Shale Planer Operator Helper , Physical Therapy, Occupational Therapy Isolation Type: None Oxygen: 4L NC continuous Diet Recommendation: no restrictions on diet, fluid restriction (use comment for amount) (2L/day) Weigh Patient: weekly (keep weight log) Almazan: Not applicable Activity/Weight Bearing Restrictions: as tolerated - Labs/Radiology BMP Date: 02/08/18 Imaging Orders: [facility] arranging outpatient staging CT scans for 4 weeks from now Call or Fax Lab and Imaging Results to: Dr. Weller - Follow Up Care Current Providers and Referrals: Levon Montelongo MD [Primary Care Provider] - As per Instructions Allen Weller MD [Medical Doctor] - (please call office to schedule follow- up in 4-5 weeks)
--- NOTE | 2018-02-02 11:34 | ASMTLACE ---
LACE Length of stay for Answers: 14 days or more current admission Acuity / Level of Answers: Yes Care: Did the patient have an inpatient admission? Comorbidities - select Answers: Any tumor (including all that apply lymphoma or leukemia) # of Emergency department Answers: 3-4 visits in the last 6 months Social determinants Answers: Homelessness (street, snf) Score: 18 Date Signed: 02/02/2018 11:33 AM Electronically Signed By:Pat Iqbal RN
[2018-02-02 11:47] VITALS: BP 113/68
--- NOTE | 2018-02-02 12:26 | ASMTDCNOTE ---
Case Management Discharge Discharge Order Complete? Answers: Yes Patient to Obtain Answers: Other Notes: [place] Medications Transportation Arranged Answers: Other Notes: [place] Transport will Pick (Date 02/02/2018 02:30 PM & Time) Faxed Final Orders Answers: Yes Discharge Comments Notes: Patient discharged to [facility]. All paperwork sent. They arranged transport for 14:30. SRIDHAR Espinoza to call report. Date Signed: 02/02/2018 12:25 PM Electronically Signed By:Pat Iqbal RN
--- NOTE | 2018-02-02 14:09 | PDDCSUM ---
Discharge Summary Discharge Summary: DISCHARGE SUMMARY FOLLOW-UP ITEMS: Arrange outpatient staging CT in 4 weeks, with outpatient oncology appointment to follow thereafter DATE OF ADMISSION: 01/16/2018 DATE OF DISCHARGE: 02/02/2018 DISCHARGE DIAGNOSES: 1. Metastatic lung cancer with invasion into the ribs and mediastinum 2. Chest pain secondary to malignancy with chronic pain and continuous opiate dependency 3. Acute hypercalcemia of malignancy 4. Acute on chronic respiratory failure 5. Acute COPD exacerbation 6. Acute encephalopathy 7. Possible relative adrenal insufficiency 8. Morbid obesity with BMI 38 and lower extremity edema 9. Acute hyponatremia CONSULTATIONS: Oncology PROCEDURES / IMAGING: Brain MRI demonstrating no metastatic lesions Chest CT demonstrating large right upper lobe and right middle lobe malignancy with mild left-sided deviation of the trachea but no tracheal narrowing or obstruction, invasion into the ribs, invasion into the mediastinum Lower extremity ultrasound demonstrated no DVT CHIEF COMPLAINT: Acute chest pain and shortness of breath SUBJECTIVE: Patient is feeling well at time discharge, she reports that her pain is well managed PHYSICAL EXAM ON DISCHARGE: Systolic blood pressure is 90 to 110, heart rate is 100-120, satting well on 4 L nasal cannula, afebrile overnight, net -2 L overnight, alert awake oriented x3 , no apparent distress, lungs have a faint expiratory wheeze bilaterally but no bronchial breath sounds, no labored breathing, no tachypnea, abdomen is moderately distended and obese, bowel sounds are present, bilateral lower extremities have 2+ edema LABS ON DISCHARGE: Serum sodium 131, serum bicarbonate 34, creatinine 0.4 HOSPITAL COURSE BY PROBLEM: The patient presented with acute chest pain and shortness of breath secondary to metastatic malignancy of lung primary origin, invading into the ribs in mediastinum, resulting in significant chest pain and shortness of breath. She was initiated on pain medications in these were up titrated during her hospitalization, with our anticipation that she will chronically require opiates moving forward. She has been up titrated to morphine sustained release 45 mg twice daily as well as oral Dilaudid for breakthrough with oral Ativan for breakthrough anxiety and scheduled Valium for ongoing anxiety treatment. She was also notably hypoxic, with visibly labored breathing, visible shortness of breath, and this is most likely secondary to a combination of her large lung malignancy as well as acute COPD exacerbation, given her smoking history and expiratory wheezes with bronchial breath sounds on examination. She was initiated on scheduled duo nebs, was continued on her home dosage of steroid, and has been titrated to Combivent scheduled 4 times daily moving forward. The patient had previously been prescribed Advair but the patient refuses to use this medication. Of critical importance is the patient's ongoing malignancy treatment plan. The patient received palliative radiation therapy to her chest and the next step in management would be chemotherapy. That being said, the patient's performance status is particularly low, and Oncology has recommended approximately 4 weeks of rehabilitation services with reassessment of her performance status at the end of her rehab stay, to determine whether she would be appropriate to initiate systemic chemotherapy. She also have staging CTs performed prior to that evaluation. The patient has a difficult time processing this plan, and she has slightly limited insight into the likely terminal nature of her diagnosis, most likely secondary to chronically undertreated mental health issues. That being said, the patient is agreeable to this proposed treatment plan of getting therapy, getting Oncology reassessment, and then potentially pursuing treatment thereafter. A more palliative approach was offered to the patient, and she preferred this more aggressive strategy. In addition to the above, the patient did experience relative adrenal insufficiency during this hospitalization as her steroids were rapidly tapered, after Oncology reported that ongoing use of steroids after radiation treatment would be of limited to no benefit. After withdrawing the patient's dexamethasone, she became more hypotensive, more tachycardic, and more hyponatremic. We reintroduced her dexamethasone 4 mg once daily, and her serum sodium level improved, her blood pressure remained stable around 100, and the plan is to wean slowly over the next week. She will get 3 subsequent days of 4 mg daily, followed by 4 days of 2 mg daily, then discontinued. It should be noted that the patient's mental status does fluctuate on a daily basis, most likely secondary to the ongoing use of her pain medications as well as her underlying mental health issues. The patient is on high doses of opiate medications as well as a high dose of gabapentin, secondary to her pain requirements from her underlying malignancy. Her current pain medication regimen is appropriate for her, but it does result in fluctuating levels of mental status, which require reassurance and redirection on a fairly regular basis. That being said, the patient's mental status does seem to stabilize with reassurance and assistance. DISCHARGE MEDICATIONS: Please see official discharge medication reconciliation sheet in chart , discontinue levofloxacin, continue dexamethasone 4 mg daily then taper to 2 mg daily on 02/05, then discontinued on 02/10. Continue morphine sustained release 45 mg twice daily, Dilaudid 2 mg as needed for breakthrough pain, Valium 2 mg twice daily scheduled, Ativan 0.5-1 mg as needed. Continue gabapentin at 600 mg 3 times daily. DISCHARGE INSTRUCTIONS: Please have outpatient CT scans performed in 4 weeks, with outpatient oncology appointment to follow. Please have social work assist this patient with determining long-term housing options beyond her custodial facility stay. TIME SPENT: Greater than 30 minutes were spent on direct patient care, as well as discharge planning and preparation.
[2018-02-03] MEDS ORDERED: PROMETHAZINE HCL 25 MG TAB PO SCH (07:00)
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
== END 2018-02-02 14:29 | DRG 136 ==
LOC: INTOOBSV 13:26 → F1N 14:46 → OBSVTOIN 01-17 11:54 → F1N 01-17 21:49
PROVIDERS: ADMIT Internal Medicine; ATTEND Internal Medicine
DX: C34.11 Malignant neoplasm of upper lobe, right bronchus or lung (principal); J96.21 Acute and chronic respiratory failure with hypoxia; G92 Toxic encephalopathy; T43.8X5A Adverse effect of other psychotropic drugs, initial encounter; J44.1 Chronic obstructive pulmonary disease with (acute) exacerbation; G89.3 Neoplasm related pain (acute) (chronic); E83.52 Hypercalcemia; E87.1 Hypo-osmolality and hyponatremia; E27.40 Unspecified adrenocortical insufficiency; C79.51 Secondary malignant neoplasm of bone; C78.1 Secondary malignant neoplasm of mediastinum; Z59.0 Homelessness; F11.20 Opioid dependence, uncomplicated; F17.210 Nicotine dependence, cigarettes, uncomplicated; E66.9 Obesity, unspecified; Z68.36 Body mass index [BMI] 36.0-36.9, adult; Z79.01 Long term (current) use of anticoagulants; Z85.3 Personal history of malignant neoplasm of breast; Z86.711 Personal history of pulmonary embolism; Z87.440 Personal history of urinary (tract) infections; Z91.19 Patient's noncompliance with other medical treatment and regimen
CPT/HCPCS: 92523-GN; 96374; 97116-GP; 97161-GP; 97165-GO; 97530-GO; 97530-GP; 97535-GO; A9585; G0378; J1100; J1170; J1940; J2060; J2270; J2405; J2550; J2800; J3480; J3489; J7613; Q9967

== ENCOUNTER 2018-03-25 07:50 | Inpatient (IN) | payer MEDICAID ==
--- NOTE | 2018-03-25 08:09 | EDPHY ---
HPI/HX/ROS/PE/MDM Narrative: CHIEF COMPLAINT: Chest tightness HPI: This patient is a 58 year-old female with complex medical history including metastatic lung cancer with invasion into ribs and mediastinum and chronic chest pain secondary to this. She was recently admitted 01/17/18 for similar symptoms. She follows up with oncology regularly, oncologist Dr. Montelongo. She was evaluated early this morning at another emergency department for her chest pain. During my interview here, she states that her tumor is causing her significant discomfort, particularly pressure around her heart and difficulty breathing. She states it feels like someone is squishing her heart like a tomato inside her chest. She states this is the worst her chest pain has ever been, and that it has worsened significantly since yesterday. She endorses sharp pains associated with breathing. Additionally, she complains of frequent diarrhea beginning yesterday. Due to all her symptoms, she states "it's at a point where I can't function" and requests that we "stop the pressure so I can breathe". She denies fever or any recent trauma or illness beyond her chronic condition. REVIEW OF SYSTEMS: A comprehensive 10 system review of systems is otherwise negative aside from elements mentioned in the history of present illness and medical decision making. PMH: 1. Metastatic lung cancer with invasion into ribs and mediastinum, chronic chest pain secondary to this. 2. Remote history of breast cancer. 3. COPD 4. History of PE 5. Chronic respiratory failure Reviewed prior records including ED visit from 03/25/18 at [facility] and admission 01/17/18 at [facility] for acute chest pain and shortness of breath. SOCIAL HISTORY: Friend at bedside. Lives in [place]. Oncologist: Dr. Montelongo PHYSICAL EXAM: General:Patient is alert, in no acute distress. ENT:Eyes are normal to inspection. ENT inspection normal. Neck: Normal inspection. Full range of motion. Respiratory:No respiratory distress. Diminished air movement in right lung. Cardiovascular: Regular rate and rhythm. Strong peripheral pulses. Normal cap refill. Abdomen:The abdomen is nontender to palpation. There are no peritoneal signs. There are normal bowel sounds. Back: Normal to inspection. No tenderness to palpation. Skin: Normal color. No rash. Warm and dry. Extremities: Normal appearance. Full range of motion. Neuro: Oriented x3. Normal motor function. Normal sensory function. ED Course: 58 y/o female with history of breast cancer metastatic to her lungs and chest wall presents with worsening chest tightness. Plan for EKG, labs including CBC, chemistries, troponin. Reviewed prior records including her ED visit from early this morning at [facility]. Of note, chest CT two days ago did not show any evidence of PE according to records from [place] obtained on [facility]. Chest x-ray here this morning was stable, see radiologist report below. EKG was ordered and interpreted by myself. Please see [employer] system for official reading. Sinus rhythm, RBBB. Troponin negative. 8:[address] Romero, oncologist chief innovation officer for Dr. Montelongo. Per [facility] staff , Dr. Montelongo is off today. 8:51 Patient is requesting admission. Patient additionally states she has run out of all of her pain medications. Plan to admit patient. She is currently homeless and has had difficulty with follow-up in the past. She previously followed up with oncology at the [facility] but has been unable to make her appointments there and is now followed by Dr. Montelongo at [facility] in [place]. She is scheduled for an appointment with Dr. Montelongo tomorrow morning. Plan to admit for observation and further workup. 9:38 Spoke with hospitalist service. Dr. Conley accepts admission to med/surg. MDM: This patient presents with worsening 'chest pressure' in the setting of known metastatic breast CA to lung and chest wall. She recently had a CT-chest that was negative for PE or other new finding, and patient was seen at [facility] last night with unconcerning CXR. Patient tells me that her chest pressure is worse than it has ever been, and that she feels like she will if she is discharged. Her vitals are stable and she is not in acute distress. Review of records indicates some concern from [facility] ED doc that patient is drug-seeking. She does admit to being out of her pain medications, but that doesn't seem to be her primary concern on my exam. I attempted to get a hold of Dr. Montelongo, who is the patient's primary oncologist, but was told by staff that he is off today. Given complex history, which includes lack of insight, untreated mental health disease and clear metastatic disease, I will admit patient for observation and further workup. - Data Points Imaging Results: Imaging Impressions Chest X-Ray 03/25/18 08:47 Impression: 1. Minimal decreased mass effect of large right hilar/right upper lobe masslike consolidation. 2. No acute superimposed process. Imaging: I viewed and interpreted images myself Laboratory Results: Laboratory Results 03/25/18 08:10 03/25/18 08:10 03/25/18 03/25/18 03/25/18 08:19 08:10 08:10 WBC RBC Hgb Hct MCV MCH MCHC RDW Plt Count MPV Neut % (Auto) Lymph % (Auto) [place] % (Auto) Eos % (Auto) Baso % (Auto) Nucleat RBC Rel Count Absolute Neuts (auto) Absolute Lymphs (auto) Absolute Monos (auto) Absolute Eos (auto) Absolute Basos (auto) Absolute Nucleated RBC Immature Gran % Immature Gran # PT 14.3 SEC SEC (12.0-15.0) INR 1.09 (0.83-1.16) APTT 34.0 SEC SEC (23.0-38.0) Sodium 140 mEq/L mEq/L (135-145) Potassium 3.8 mEq/L mEq/L (3.3-5.0) Chloride 108 mEq/L mEq/L (97-110) Carbon Dioxide 23 mEq/l mEq/l (22-31) Anion Gap 9 mEq/L mEq/L (8-16) BUN 6 mg/dL L mg/dL (7-23) Creatinine 0.3 mg/dL L mg/dL (0.6-1.0) Estimated GFR > 60 Glucose 98 mg/dL mg/dL (70-100) Calcium 9.4 mg/dL mg/dL (8.5-10.4) POC Troponin I 0.01 ng/mL ng/mL (0.00-0.08) 03/25/18 08:10 WBC 10.23 10^3/uL H 10^3/uL (3.80-9.50) RBC 4.58 10^6/uL 10^6/uL (4.18-5.33) Hgb 12.9 g/dL g/dL (12.6-16.3) Hct 40.5 % % (38.0-47.0) MCV 88.4 fL fL (81.5-99.8) MCH 28.2 pg pg (27.9-34.1) MCHC 31.9 g/dL L g/dL (32.4-36.7) RDW 18.4 % H % (11.5-15.2) Plt Count 299 10^3/uL 10^3/uL (150-400) MPV 10.1 fL fL (8.7-11.7) Neut % (Auto) 82.1 % H % (39.3-74.2) Lymph % (Auto) 9.3 % L % (15.0-45.0) [place] % (Auto) 7.0 % % (4.5-13.0) Eos % (Auto) 0.7 % % (0.6-7.6) Baso % (Auto) 0.6 % % (0.3-1.7) Nucleat RBC Rel Count 0.0 % % (0.0-0.2) Absolute Neuts (auto) 8.40 10^3/uL H 10^3/uL (1.70-6.50) Absolute Lymphs (auto) 0.95 10^3/uL L 10^3/uL (1.00-3.00) Absolute Monos (auto) 0.72 10^3/uL 10^3/uL (0.30-0.80) Absolute Eos (auto) 0.07 10^3/uL 10^3/uL (0.03-0.40) Absolute Basos (auto) 0.06 10^3/uL 10^3/uL (0.02-0.10) Absolute Nucleated RBC 0.00 10^3/uL 10^3/uL (0-0.01) Immature Gran % 0.3 % % (0.0-1.1) Immature Gran # 0.03 10^3/uL 10^3/uL (0.00-0.10) PT INR APTT Sodium Potassium Chloride Carbon Dioxide Anion Gap BUN Creatinine Estimated GFR Glucose Calcium POC Troponin I Medications Given: Discontinued Medications Hydromorphone HCl (Dilaudid) 0.5 mg IVP EDNOW ONE Stop: 03/25/18 08:53 Last Admin: 03/25/18 09:08 Dose: 0.5 mg Sodium Chloride (Ns) 500 mls @ 0 mls/hr IV EDNOW ONE; Wide Open PRN Reason: Protocol Stop: 03/25/18 08:52 Last Admin: 03/25/18 09:08 Dose: 500 mls Point of Care Test Results: Chemistry 03/25/18 08:19 POC Troponin I 0.01 ng/mL ng/mL (0.00-0.08) General Time Seen by Provider: 03/25/18 08:03 Initial Vital Signs: Initial Vital Signs Temperature (C) 37.2 C 03/25/18 07:53 Heart Rate 116 H 03/25/18 07:53 Respiratory Rate 20 03/25/18 07:53 Blood Pressure 167/94 H 03/25/18 07:53 O2 Sat (%) 94 03/25/18 07:53 O2 Delivery Mode Room Air Allergies/Adverse Reactions: Sulfa (Sulfonamide Antibiotics) Allergy (Intermediate, Verified 03/25/18 07:51) rash/swelling acetaminophen [From Vicodin] Allergy (Mild, Verified 03/25/18 07:51) Rash codeine Allergy (Mild, Verified 03/25/18 07:51) Rash hydrocodone [From Vicodin] Allergy (Mild, Verified 03/25/18 07:51) Rash NSAIDS (Non-Steroidal Anti-Inflamma Allergy (Mild, Verified 03/25/18 07:51) GI upset Penicillins Allergy (Mild, Verified 03/25/18 07:51) Rash fentanyl Allergy (Verified 03/25/18 07:51) sugar substitutes Allergy (Intermediate, Uncoded 01/22/18 11:27) Swelling/neck,face,throat Home Medications: Medication Instructions Recorded Albuterol [Proventil Inhaler HFA 2 puffs IH BID PRN 01/16/18 (*)] HYDROmorphone HCL [Dilaudid 2 mg 2 mg PO Q6 PRN 01/16/18 (*)] Rivaroxaban [Xarelto 15mg (*)] 15 mg PO DAILY 01/16/18 Ondansetron Odt [Zofran Odt 4 mg 4 mg PO Q4HRS PRN tab 02/02/18 (*)] Dicyclomine [Bentyl 20 MG (*)] 20 mg PO TID PRN 03/25/18 Departure - Departure Disposition: [facility] Acute Clinical Impression: Metastasis from breast cancer Chest pain Qualifiers: Chest pain type: other chest pain Qualified Code(s): R07.89 - Other chest pain Adenocarcinoma of lung Qualifiers: Laterality: unspecified laterality Qualified Code(s): C34.90 - Malignant neoplasm of unspecified part of unspecified bronchus or lung Condition: Fair Report Scribed for: Levon Waddell Report Scribed by: Mimi Singh Date of Report: 03/25/18 Time of Report: 08:09 Physician Review and Approval Statement: Portions of this note were transcribed by an ED scribe. I personally performed the history, physical exam, and medical decision making; and confirm the accuracy of the information in the transcribed note.
[2018-03-25] MEDS ORDERED: NS 500 ML IV ONE (08:51)
[2018-03-25] MEDS ORDERED: HYDROmorphONE/DILAUDID 2 MG/ML INJ IVP ONE (08:52)
[2018-03-25 09:01] LABS: PLATELET COUNT 299 10^3/uL (150-400)
[2018-03-25 09:11] LABS: INR 1.09 (0.83-1.16); PROTIME(PATIENT) 14.3 SEC (12.0-15.0)
[2018-03-25] MEDS ORDERED: ACETAMINOPHEN 325 MG TAB PO PRN (09:52)
[2018-03-25] MEDS ORDERED: ZOLPIDEM TARTRATE 5 MG TAB PO PRN (09:52)
[2018-03-25] MEDS ORDERED: ONDANSETRON 4 MG/2 ML VIAL IVP PRN (09:52)
--- NOTE | 2018-03-25 10:05 | PDGENHP ---
History and Physical History and Physical: CC: Ongoing chest pain of cancer uncontrolled HISTORY: This patient comes in today with ongoing pain of cancer with some worsening and some new digestive symptoms. The new symptoms or if she finds that when she eats there is some discomfort in the substernal area that may last minutes to half an hour. She occasionally has some vomiting. This symptom is all new over the past 1-2 weeks. In addition she notices that every time she eats or drinks anything she has watery stool very quickly within a few minutes. This is also new within 1-2 weeks. There has been no bleeding and no fever symptom. She has eaten no suspicious foods and had no travel. None of her associates are sick with similar symptoms. Additionally she has chronic ongoing cancer pain do a large metastatic lung cancer in her upper right lung that his known to invade ribs with destruction of ribs. She was here in January where we treated her extensively with high doses of multiple different types of pain medicine never achieving any kind of pain relief. She left here on high-dose gabapentin and moderately high dose narcotics, but over the past few months has found that she gets no good pain relief and only achieved feeling over sedated by these medicines. She is therefore tapered back on her own to Dilaudid 2 mg 3 to 4 times a day with no long-acting medicine and no other pain medicines. She did receive radiation therapy here in January which did not improve her pain. She completed a course of 5 treatments. She is followed with Dr. Montelongo and is hoping that he will recommend some type of other anti cancer therapy but he has not so far given her any type of chemo or similar therapies. In addition to the above she now is complaining of some intermittent dyspnea and tight sensation in the chest. She states that these symptoms are new but they sound reminiscent of what she was telling me in January of this year. ROS: A comprehensive 10 system review revealed no other significant findings PAST MEDICAL HISTORY: Metastatic lung cancer in the right chest with poorly controlled pain; large lesion occupies upper right thorax with known invasion and destruction of ribs and suspected impingement or destruction of subcostal nerves Prior history of breast cancer Hypercalcemia malignancy COPD Homelessness Pulmonary embolism Tobacco abuse FAMILY MEDICAL HISTORY: No concerning relevant illnesses in family members SOCIAL HISTORY: Homeless MEDICATIONS: The patients list has been reconciled by our clinical pharmacist in the EMR. I have reviewed the list and ordered appropriate medicines. PHYSICAL EXAMINATION: Vital Signs: Hypertensive and tachycardic at 105-116, respirations at 20 on 5 L oxygen, no fever Butcher [place]ullion: Examination: General: alert, oriented, good mentation, anxious and uncomfortable appearing Skin: warm, dry, good color, no rash HEENT: normal Neck: no mass or jvd Resps: relaxed Lungs: Diminished breath sounds at the right upper lobe without rales or wheeze , otherwise clear breath sounds Heart: regular, no murmur Abdomen: soft, nondistended, some diffuse tenderness without guarding or rebound , +BS, no mass Upper Extremities: normal Lower Extremities: no edema, warm No Bleeding or bruising Neurologic: normal speech/language, 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 She has dense complete consolidation at the right upper lobe which is chronic for her and unchanged since January of this year.. On this x-ray I am unable to see the very posterior portion of the right 3rd rib as it approaches the spine but it did not see any abnormalities of the spine; the tumor mass in the right upper chest makes these structures difficult to examine on x-ray. I do not see anything that would suggest pneumonia or heart failure 12 LEAD EKG: Sinus rhythm with right bundle branch block ASSESSMENT: * Uncontrolled pain of cancer is most likely the cause of her right-sided chest pain * Esophageal odynophagia * Postprandial vomiting and diarrhea * Known metastatic lung cancer with a large mass in the right upper thorax including destruction of ribs * No response to radiation therapy As described above this patient's pain has been very difficult to control and has not responded to high doses of several different types of pain medicine used together or separately. She has not responded to radiation therapy. At this point it is not known to me whether is felt in the Oncology Clinic that there might be some palliative treatment for her in the way of any kind of cancer directed chemotherapy or other medications. These have not been prescribed for the patient so far as best I can tell, and Dr. Montelongo is notes are [facility]. As far as pain medications she does not wish to go back on to high dose sedating medications as they did not help her. However she is having significant wear off from her 4 times a day short-acting narcotic and we did discuss and she has agreed to adding some modest dose of long-acting medicine to help even out the pain control for her at this time if it works. The digestive symptoms are new and warrant further evaluation. I am not sure of the etiology of these. I would be suspicious of esophageal invasion by her lung cancer causing the odynophagia. The diarrhea symptoms could be due to metastatic disease, infection, or numerous other causes. PLANS: * Inpatient admission * I will consult the Oncology team * IV hydration * Add some long-acting oral morphine in low-dose and observe for its effects of pain relief and possible sedation * At the moment I will not add nonsteroidals or gabapentin as high doses of these did not provide her any relief in the past, but will consider these depending on progress * Abdominal x-rays * GI pathogen panel I have reviewed the patient's case in detail with Dr. Levon Waddell I have reviewed the patient's past medical records as part of this assessment, including previous hospitalization records
[2018-03-25] MEDS ORDERED: DICYCLOMINE 20 MG TAB PO PRN (10:58)
[2018-03-25] MEDS ORDERED: ALBUTEROL 60 PUFFS/8 GM MDI IH PRN (10:58)
[2018-03-25] MEDS: ONDANSETRON DISINTEGRATING 4 MG TAB PO PRN (12:12)
--- NOTE | 2018-03-25 12:30 | ASMTCMCOM ---
CM Note CM Note Notes: Chart reviewed. Patient admitted via ED with c/o chest pain and pressure. Patient known to this staff. She is homeless patient with diagnosis of breast cancer with metastatic disease. Last discharged from here in January to [facility]. Here for pain control. Was at the ED in [place] this am but left. Needs to be determined. Plan: TBD Date Signed: 03/25/2018 12:16 PM Electronically Signed By:Dottie Mason RN
--- NOTE | 2018-03-25 14:24 | CPEKG ---
Test Reason : OPEN Blood Pressure : / mmHG Vent. Rate : 099 BPM Atrial Rate : 099 BPM P-R Int : 143 ms QRS Dur : 130 ms QT Int : 394 ms P-R-T Axes : 044 075 023 degrees QTc Int : 506 ms Sinus rhythm Right bundle branch block Minimal ST elevation, lateral leads Confirmed by Levon Waddell ([id number]) on 03/25/2018 2:23:17 PM Referred By: Confirmed By:Levon Waddell
[2018-03-25] MEDS: HYDROmorphONE/DILAUDID 2 MG TAB PO PRN ×2 (14:49→22:00)
[2018-03-25] MEDS ORDERED: morphINE SR 15 MG TAB PO ONE (16:35)
[2018-03-25] MEDS: morphINE SR 15 MG TAB PO SCH (21:57)
[2018-03-25] MEDS: MELATONIN 3 MG TAB PO SCH (21:57)
[2018-03-26 04:46] LABS: PLATELET COUNT 251 10^3/uL (150-400)
[2018-03-26] MEDS: HYDROmorphONE/DILAUDID 2 MG TAB PO PRN ×3 (07:50→16:27)
[2018-03-26] MEDS: morphINE SR 15 MG TAB PO SCH ×2 (07:50→20:37)
[2018-03-26] MEDS: RIVAROXABAN 15 MG TAB PO SCH (07:59)
--- NOTE | 2018-03-26 09:46 | PDMN ---
Medical Necessity Medical necessity: [facility] Pain management and [facility] Gastroenterology [facility],. 58 y/o w/. Uncontrolled pain of cancer is most likely the cause of her right- sided chest pain. Esophageal odynophagia. Postprandial vomiting and diarrhea. Known metastatic lung cancer with a large mass in the right upper thorax including destruction of ribs. No response to radiation therapy. Pain has been difficult to control. The digestive symptoms are new and warrant further evaluation, suspicious for esophageal invasion by her lung cancer causing the odynophagia. The diarrhea symptoms could be due to metastatic disease, infection, or numerous other causes. PLANS: Inpatient admission. Consult Oncology team. IV hydration. Pain Managemet. Abdominal x-rays. GI pathogen panel
--- NOTE | 2018-03-26 10:04 | PDCONSULT ---
Cardiothoracic Anesthesia Technician Note: HEMATOLOGY/ONCOLOGY CONSULTATION NOTE Reason for consultation locally advanced non-small cell lung cancer Requesting provider: Dr. Michael Conley Outpatient oncologist: Dr. Weller History of present illness: Caitlyn is a 58-year-old female with a remote history of triple negative breast cancer and relatively newly diagnosed locally advanced non-small cell lung cancer who was admitted due to right-sided chest pain. She initially presented in July of 2017 with symptoms of shortness of breath and cough. She had a fairly large right upper lobe lung mass with likely layton involvement. Biopsy demonstrated adenocarcinoma PD L1 10% with no high lift driver mutations. She did have high mutational burden on Foundation testing. She presented to [facility] in January with significant pain. Her mass at that time was up to 12 cm with destruction of ribs locally. She received palliative radiation. Since that time, her initiation of therapy has been complicated by her complex social situation. She is living with friends and at one point was noted to be homeless. She was admitted through the emergency room due to progressive right chest pain. She states that after radiation of the pain slightly improved but has progressively worsened. The pain is in her right shoulder radiating to her right breast and back. She pain on deep inspiration as well. She has noted right arm weakness. She has also had significant diarrhea and states that she has had multiple bowel movements in the parking lot outside. Past medical and surgical history: History of left breast cancer, triple negative treated in 2001 with surgery followed by radiation and chemotherapy. History of hypercalcemia COPD Pulmonary embolism Family history: No history of cancers in the family. Social history: She has active tobacco use. She currently is residing with a friend who is moving to [place]. Review of systems: A 12 point review of systems obtained is otherwise negative Allergies: Allergies were reviewed in [facility] Generic Name Dose Route Start Last Admin Trade Name Freq PRN Reason Stop Dose Admin Hydromorphone HCl 2 mg 03/25/18 10:58 03/26/18 07:50 Dilaudid PO 04/04/18 10:57 2 mg Q6HRS PRN Administration Pain, Severe Melatonin 3 mg 03/25/18 21:00 03/25/18 21:57 Melatonin PO 09/21/18 20:59 3 mg HS JOHN Administration Morphine Sulfate 15 mg 03/25/18 21:00 03/26/18 07:50 Ms Contin/Oramorph PO 04/04/18 20:59 15 mg BID JOHN Administration Ondansetron HCl 4 mg 03/25/18 10:58 03/25/18 12:12 Zofran Odt PO 09/21/18 10:57 4 mg Q4HRS PRN Administration Nausea/Vomiting, Use 1st Rivaroxaban 15 mg 03/26/18 09:00 03/26/18 07:59 Xarelto PO 09/22/18 08:59 Not Given DAILY JOHN Discontinued Medications Generic Name Dose Route Start Last Admin Trade Name Migue PRN Reason Stop Dose Admin Hydromorphone HCl 0.5 mg 03/25/18 08:52 03/25/18 09:08 Dilaudid IVP 03/25/18 08:53 0.5 mg EDNOW ONE Administration Sodium Chloride 500 mls @ 0 mls/hr 03/25/18 08:51 03/25/18 09:08 Ns IV 03/25/18 08:52 500 mls EDNOW ONE Administration Protocol Wide Open Morphine Sulfate 15 mg 03/25/18 16:35 03/25/18 17:14 Ms Contin/Oramorph PO 03/25/18 16:36 15 mg ONCE ONE Administration Physical examination Temp Pulse Resp BP Pulse Ox 36.6 C 99 16 103/67 91 L 03/26/18 07:23 03/26/18 07:23 03/26/18 07:23 03/26/18 07:23 03/26/18 07:23 O2 (L/minute) 2 General: Conversant, in significant pain HEENT: On nasal cannula oxygen, opiates clear extraocular movements are intact Pulmonary: Bilateral air entry noted, examination complicated by inability to inspired deeply due to pain. 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 Hyperesthesia noted in right arm, right back and right anterior chest. 03/26/18 04:04 03/26/18 04:04 Assessment and plan: 1. Locally advanced non-small cell lung cancer: She voices significant frustrations with regards to her care. She states that she wants to be cured from her cancer. I explained that it would be unlikely to obtain cure with how advanced her cancer is. I have recommended a repeat CT scan of the chest given her progressive chest symptoms. It is unlikely that she would be able to receive more radiation. I explained that she does have a high mutational burden it would be eligible for clinical trials. She states that she wants to move to [place]. I explained that if she starts treatment she would have to stay here. The other option would be to treat her with standard chemotherapy which again be done in clinic. 2. Pain, cancer related: She was taking Tylenol at home for pain. I would recommend initiating oxycodone 10 mg Q 3-4 hours for pain. I will calculate her 24 hr oxycodone requirements and split that in half to give her long-acting OxyContin and the remainder short-acting oxycodone. A total of 60 min was spent on [id number] time with the patient with greater than 50% of that being counseling and coordination of care.
[2018-03-26] MEDS: ONDANSETRON DISINTEGRATING 4 MG TAB PO PRN (11:52)
[2018-03-26] MEDS ORDERED: NS 1,000 ML IV ONE (12:29)
--- NOTE | 2018-03-26 12:29 | ASMTCMCOM ---
CM Note CM Note Notes: Met with patient to assess for discharge needs. Patient is defensive when I ask where she is living and states she is moving to [place] with her SO and friends. She is complaining of pain and some wheezing in her chest. She is requesting her nurse. CM to follow for needs. Plan: TBD Date Signed: 03/26/2018 12:09 PM Electronically Signed By:Dottie Mason RN
[2018-03-26] MEDS: BENZONATATE 100 MG CAP PO SCH ×2 (16:27→21:33)
--- NOTE | 2018-03-26 17:19 | HOSPPROG ---
Hospitalist Progress Note Assessment/Plan: DIAGNOSES: * Uncontrolled pain of cancer is most likely the cause of her right-sided chest pain; * Previously demonstrated lack of response of her pain to radiation therapy, high-dose narcotics, high-dose Neurontin, nonsteroidal anti-inflammatories, corticosteroids, Lidoderm patches * Esophageal odynophagia * Postprandial vomiting and diarrhea * Known metastatic lung cancer with a large mass in the right upper thorax including destruction of ribs * No response to radiation therapy I reviewed her case in detail today with Dr. Romero. Unfortunately at this point there is little to offer in terms of accomplishing immediate pain relief for her as she clearly has not responded to high-dose medications in the various pain medicine groups. She has on her own over the past couple of months decreased her pain medicines to a very minimal amount of pain medicine of the narcotic class alone, stating that she found all of the medicines caused her drowsiness without improving her pain. She continues its state at this time that she wants to be cured of her cancer and have all of her pain relieved. She has been told in the past both in clinic and here at the hospital here prior hospitalization that the likelihood of achieving a cure of her tumor is very low. She has visited both doctors Jayda and Janee in the clinic and chemotherapy and immune therapy options have been considered. However it sounds like it has been felt that the patient's ability to participate in they were requisite monitoring and follow-up is limited and no specific therapy has been offered to the patient that she was accepting of so far. We did talk about the potential of nerve ablation either in the brachial plexus or along the roots branching to the sub costal nerves and the right thorax. I talked to the patient about this. She is not very interested in this states that she is known many people who had such nerve block therapies that have not been helpful. PLANS: * Tessalon Perles and Mucinex as well as a flutter valve device are added as the patient is having productive cough that is aggravating her pain * I will talk to anesthesiology physicians here to see if there is anybody in our community who does any nerve ablation work that might potentially be offered * Continue to use antiemetic therapy and IV fluids at this time * Will not change her pain medicines at this time as I do not think there will be effective for tolerated by the patient SUBJECTIVE: Continues to feel the same pain now that she was feeling yesterday overall with little change. Not much improvement with the addition of the MS Contin. This is consistent with her previous lack of benefit from significant narcotics as well as other types of pain medicine. She continues to mentions some mild mid esophageal odynophagia but said she has not been vomiting here today so far and has not had any diarrhea here so far. She has however had poor food intake of food partly due to nausea. Continuing to use nausea medicines here. OBJECTIVE Vitals reviewed: She did have 1 lower blood pressure mid day today but otherwise vitals have all been stable Exam: alert oriented actually looks a bit more relaxed and less uncomfortable today compared to yesterday skin warm dry color ok resps not labored There is tenderness along the contours of the right upper thoracic cavity but no specific tender site in that region. There is palpable change in the ribs posteriorly where she is known to have rib destruction from her tumor. lungs clear BSs heart regular abd soft nondistended nontender, bowel sounds present limbs warm, no edema iv site ok Objective: Vital Signs Temp Pulse Resp BP Pulse Ox 36.8 C 91 14 87/51 L 92 03/26/18 11:08 03/26/18 16:44 03/26/18 16:44 03/26/18 11:08 03/26/18 16:44 Laboratory Results 03/26/18 04:04 03/26/18 04:04 03/25/18 03/26/18 03/27/18 06:59 06:59 06:59 Intake Total 1700 100 Balance 1700 100 PT 14.3 SEC (12.0-15.0) 03/25/18 08:10 INR 1.09 (0.83-1.16) 03/25/18 08:10 - Time Spent With Patient Time Spent with Patient: greater than 35 minutes Time Spent with Patient: Greater than 35 minutes spent on this patients care, greater than 50% of time spent counseling, educating, and coordinating care regarding the above mentioned plan. ICD10 Worksheet Patient Problems: Problems Problem Status Onset Adenocarcinoma of lung Acute Chest pain Acute Metastasis from breast cancer Acute Breast cancer Acute Cancer associated pain Acute Dehydration Acute Pulmonary embolism Acute
[2018-03-26] MEDS ORDERED: KETOROLAC 15 MG/1 ML SDV IVP ONE (20:30)
[2018-03-26] MEDS: guaiFENesin 600 MG TAB.ER PO SCH (21:33)
[2018-03-26] MEDS: MELATONIN 3 MG TAB PO SCH (21:33)
[2018-03-27] MEDS: HYDROmorphONE/DILAUDID 2 MG TAB PO PRN ×5 (05:59→23:48)
[2018-03-27] MEDS: guaiFENesin 600 MG TAB.ER PO SCH ×2 (08:22→20:46)
[2018-03-27] MEDS: morphINE SR 15 MG TAB PO SCH ×3 (08:22→20:46)
[2018-03-27] MEDS: BENZONATATE 100 MG CAP PO SCH ×3 (08:23→20:46)
[2018-03-27] MEDS: RIVAROXABAN 15 MG TAB PO SCH (08:41)
[2018-03-27] MEDS ORDERED: ALTEPLASE 2 MG VIAL IVP PRN (12:43)
--- NOTE | 2018-03-27 12:51 | SOAPPROG ---
SOAP Progress Note Assessment/Plan: Assessment: 1) Metastatic non small cell lung cancer (adenocarcinoma with negative biomarkers) / PDL1 expression 10% 2) Pain secondary to Right chest wall invasion from#1 3) H/O PE Plan: I had a long discussion with Caitlyn today. She continues to have a significant amount of pain secondary to chest wall invasion from her tumor. This was not successfully palliated with radiation. She wants to receive active treatment. We discussed the option of palliative chemotherapy, specifically Taxol/ Carboplatin. The side effect profile was reviewed including the risk of infusion reaction, neuropathy, hair loss, neutropenic infections. In light of her ongoing symptoms, and the difficulty of getting this started in the outpatient setting, I offered to administer her first cycle here. She would like to proceed. I explained to het that her cancer is not curable, and that treatment is palliative. She understands and accepts this. She is planning to remain in the area for several more weeks, so I think starting therapy here is reasonable. She may eventually move to [place] in April. I have recommended a full restaging CT C/A/P before starting. THis will hopefully be done today. I will place a PICC to facilitate chemotherapy administration. Taxol / Carboplatin will hopefully start tomorrow based on drug availability. Orders completed. Continue current pain meds. Continue Xarelto for her h/o PE. Plan d/w Dr. Conley, and 1 leeds Nursing staff. Patient's questions answered. 03/27/18 12:48 03/27/18 12:51 Subjective: Caitlyn reports continued chest wall pain. She wants to receive palliative chemotherapy this hospital stay. Objective: Vital Signs Temp Pulse Resp BP Pulse Ox 36.6 C 91 18 86/51 L 88 L 03/27/18 11:04 03/27/18 11:04 03/27/18 11:04 03/27/18 11:04 03/27/18 11:04 Laboratory Results 03/26/18 04:04 03/26/18 04:04 03/26/18 03/27/18 03/28/18 05:59 05:59 05:59 Intake Total 1700 1840 Balance 1700 1840 PT 14.3 SEC (12.0-15.0) 03/25/18 08:10 INR 1.09 (0.83-1.16) 03/25/18 08:10 - Time Spent With Patient Time Spent With Patient: 45 minutes Physical Exam - Physical Exam General Appearance: alert, no apparent distress EENT: PERRL/EOMI Neck: other (Reduced BS on Right. Bilateral expiratoty wheeze) Cardiac/Chest: regular rate, rhythm Abdomen: non-tender, soft Neuro/Psych: alert, normal mood/affect ICD10 Worksheet Patient Problems: Problems Problem Status Onset Adenocarcinoma of lung Acute Chest pain Acute Metastasis from breast cancer Acute Breast cancer Acute Cancer associated pain Acute Dehydration Acute Pulmonary embolism Acute
--- NOTE | 2018-03-27 14:42 | HOSPPROG ---
Hospitalist Progress Note Assessment/Plan: DIAGNOSES: * Uncontrolled pain of cancer is most likely the cause of her right-sided chest pain * Previously demonstrated lack of response of her pain to radiation therapy, high-dose narcotics, high-dose Neurontin, nonsteroidal anti-inflammatories, corticosteroids, Lidoderm patches * Esophageal odynophagia * Postprandial vomiting and diarrhea * Known metastatic lung cancer with a large mass in the right upper thorax including destruction of ribs * No response to radiation therapy * Hypokalemia is likely due to her GI losses I reviewed her case in detail today with Dr. Allen Murphy. Unfortunately at this point there is little to offer in terms of accomplishing immediate pain relief for her as she clearly has not responded to high-dose medications in the various pain medicine groups. She has on her own over the past couple of months decreased her pain medicines to a very minimal amount of pain medicine of the narcotic class alone, stating that she found all of the medicines caused her drowsiness without improving her pain. At this point the recommendation from Dr. Santana is to begin some palliative chemotherapy with carboplatin Taxol. The patient is after their discussion amenable to this therapy and I do support this approach if there is possibility of palliation from her pain. She does now understand and discuss clearly with this that she and the is not in a situation where her tumor is all likely to be curable. PLANS: * Staging CT scans of chest abdomen pelvis * PICC line is ordered * Orders written by Dr. Murphy to begin palliative chemotherapy * Tessalon Perles and Mucinex as well as a flutter valve device are added as the patient is having productive cough that is aggravating her pain * Continue to use antiemetic therapy and IV fluids at this time * Will slightly increase her long-acting narcotic to keep steadier pain relief to the extent that helps but as stated previously at do not think that increasing her short-acting narcotic or overall increasing her narcotic doses likely the bring about any help as it never has in the past * At this point she is still not wanting to pursue nerve ablation therapy so will not pursue that any further SUBJECTIVE: Continues have the same pain from her tumor today unchanged Still says difficulty eating with regurgitation or vomiting of food Is no diarrhea here so far OBJECTIVE Vitals reviewed: Mildly hypertensive today otherwise stable without fever Exam: alert oriented actually looks a bit more relaxed and less uncomfortable today compared to yesterday skin warm dry color ok resps not labored There is tenderness along the contours of the right upper thoracic cavity but no specific tender site in that region. There is palpable change in the ribs posteriorly where she is known to have rib destruction from her tumor. lungs clear BSs heart regular abd soft nondistended nontender, bowel sounds present limbs warm, no edema iv site ok Lab data: Potassium low at 3.2 today Objective: Vital Signs Temp Pulse Resp BP Pulse Ox 36.6 C 97 22 H 118/73 95 03/27/18 11:04 03/27/18 14:15 03/27/18 14:15 03/27/18 14:15 03/27/18 14:15 Laboratory Results 03/26/18 04:04 03/26/18 04:04 03/26/18 03/27/18 03/28/18 06:59 06:59 06:59 Intake Total 1700 1840 Balance 1700 1840 PT 14.3 SEC (12.0-15.0) 03/25/18 08:10 INR 1.09 (0.83-1.16) 03/25/18 08:10 ICD10 Worksheet Patient Problems: Problems Problem Status Onset Adenocarcinoma of lung Acute Chest pain Acute Metastasis from breast cancer Acute Breast cancer Acute Cancer associated pain Acute Dehydration Acute Pulmonary embolism Acute
[2018-03-27] MEDS: LORazepam 1 MG TAB PO PRN (20:46)
[2018-03-27] MEDS: MELATONIN 3 MG TAB PO SCH (20:46)
[2018-03-28] MEDS: LORazepam 1 MG TAB PO PRN ×3 (04:36→19:08)
[2018-03-28] MEDS: HYDROmorphONE/DILAUDID 2 MG TAB PO PRN ×4 (04:36→22:32)
[2018-03-28] MEDS: RIVAROXABAN 15 MG TAB PO SCH (09:48)
[2018-03-28] MEDS: BENZONATATE 100 MG CAP PO SCH ×3 (09:48→22:31)
[2018-03-28] MEDS: guaiFENesin 600 MG TAB.ER PO SCH ×2 (09:48→19:50)
[2018-03-28] MEDS: morphINE SR 15 MG TAB PO SCH ×3 (09:48→22:31)
--- NOTE | 2018-03-28 09:49 | ASMTCMCOM ---
CM Note CM Note Notes: Chart reviewed. Patient suffers intractable pain due to tumor invasion in chest wall. Patient seen by hospital medicine and oncology. Agreeable to palliative interventions to try to reduce pain. Picc placed. CT of chest and abdomen done. To have cycle of chemo as inpatient. CM to follow for needs. Plan: TBD Date Signed: 03/28/2018 09:48 AM Electronically Signed By:Dottie Mason RN
[2018-03-28] MEDS ORDERED: DEXAMETHASONE 20 MG in NS 50 ML IV SCH (10:15)
[2018-03-28] MEDS ORDERED: ACETAMINOPHEN 325 MG TAB PO SCH (10:15)
[2018-03-28] MEDS: NS 1,000 ML IV SCH ×2 (10:22→22:33)
[2018-03-28] MEDS ORDERED: FAMOTIDINE IV SCH (10:30)
[2018-03-28] MEDS ORDERED: PALONOSETRON HCL 0.25 MG/5 ML VIAL IVP SCH (10:30)
[2018-03-28] MEDS ORDERED: RTU IV SCH (10:30)
[2018-03-28] MEDS ORDERED: NACL IV SCH (10:30)
[2018-03-28] MEDS ORDERED: PACLITAXEL IV SCH (11:00)
[2018-03-28] MEDS ORDERED: NS IV SCH ×2 (11:00→14:00)
--- NOTE | 2018-03-28 11:57 | SOAPPROG ---
SOAP Progress Note Assessment/Plan: Assessment: 1) Metastatic non small cell lung cancer (adenocarcinoma with negative biomarkers) / PDL1 expression 10% 2) Pain secondary to Right chest wall invasion from#1 3) H/O PE 4) Possible metastasis to Left adrenal and intraabdominal node near Right kidney Plan: Caitlyn continues to have a significant amount of pain secondary to chest wall invasion from her tumor. This was not successfully palliated with radiation. On Thursday we discussed the option of palliative chemotherapy, specifically Taxol/Carboplatin. The side effect profile was reviewed including the risk of infusion reaction, neuropathy, hair loss, neutropenic infections. We reviewed these potential side effects again today. In light of her ongoing symptoms, and the difficulty of getting this started in the outpatient setting, I have started palliative Taxol / Carboplatin as an inpatient today. She signed a chemotherapy consent today. I have explained to het that her cancer is not curable, and that treatment is palliative. She understands and accepts this. We reviewed her CT results, and specifically discussed the new areas involving Left adrenal gland and a Right sapphire-nephric node that mat represent additional areas of spread. She is planning to remain in the area for several more weeks, so I think starting therapy here is reasonable. She may eventually move to [place] in April. Continue current pain meds. Her pain seems better controlled today. Patient's questions answered. Subjective: Starting palliative chemotherapy today. Pain somewhat better controlled. Objective: Vital Signs Temp Pulse Resp BP Pulse Ox 36.8 C 100 16 100/55 L 91 L 03/28/18 09:34 03/28/18 09:34 03/28/18 09:34 03/28/18 09:34 03/28/18 09:34 Laboratory Results 03/26/18 04:04 03/28/18 04:30 03/27/18 03/28/18 03/29/18 05:59 05:59 05:59 Intake Total 1840 500 Balance 1840 500 PT 14.3 SEC (12.0-15.0) 03/25/18 08:10 INR 1.09 (0.83-1.16) 03/25/18 08:10 - Time Spent With Patient Time Spent With Patient: 25 minutes Physical Exam - Physical Exam General Appearance: alert, no apparent distress EENT: PERRL/EOMI Respiratory: other (Bilateral wheeze and rhonchi) Abdomen: non-tender, soft Neuro/Psych: alert, normal mood/affect ICD10 Worksheet Patient Problems: Problems Problem Status Onset Adenocarcinoma of lung Acute Chest pain Acute Metastasis from breast cancer Acute Breast cancer Acute Cancer associated pain Acute Dehydration Acute Pulmonary embolism Acute
[2018-03-28] MEDS ORDERED: CARBOPLATIN IV SCH (14:00)
--- NOTE | 2018-03-28 16:39 | HOSPPROG ---
Hospitalist Progress Note Assessment/Plan: DIAGNOSES: * Uncontrolled pain of cancer is most likely the cause of her right-sided chest pain * Previously demonstrated lack of response of her pain to radiation therapy, high-dose narcotics, high-dose Neurontin, nonsteroidal anti-inflammatories, corticosteroids, Lidoderm patches * Esophageal odynophagia, improving here during this hospital stay * Postprandial vomiting and diarrhea * Known metastatic lung cancer with a large mass in the right upper thorax including destruction of ribs * No response to radiation therapy given in January 14 doses * Hypokalemia is likely due to her GI losses, now resolved The patient is more relaxed notably more comfortable today. She says her pain is better and her digestive symptoms are improved and she is eating today. I strongly suspect that there may be some placebo effect that she is experiencing knowing that she is finally getting some treatment for her tumor. Will watch to see that she is tolerating her therapy well and continue to observe her p.o. Intake. PLANS: * Continued observation overnight to be sure no side effects from chemotherapy * Could likely be discharged tomorrow with follow-up in Oncology Clinic * Continue current pain management which includes addition of small dose of long -acting narcotic to even out the effect of her short-acting Dilaudid. As discussed above in in admission note the patient has had extensive trials of high-dose narcotics gabapentin nonsteroidals steroids Lidoderm all without any improvement in her pain over the last few months. Would not recommend increasing her doses at this time as there is low unlikely to be benefit. This could be changed over time if indicated depending on how she is doing. * At this time would not do any further assessment of her digestive symptoms that seem to be resolving so, but will need follow-up SUBJECTIVE: Patient has now received 1st dose of her carboplatin Taxol without side effects so far. Notably she states that since receiving this dose her pain is starting to recede , she can breathe easier. She also has eaten fair bit of food today after really not being able to eat so far due to nausea. OBJECTIVE Vitals reviewed: Mild tachycardia today, otherwise stable without fever Exam: alert oriented is more relaxed today skin warm dry color ok resps not labored No change in the tenderness along her rib cage posteriorly lungs absent breath sounds upper right lung, otherwise clear BSs heart regular abd soft nondistended nontender, bowel sounds present limbs warm, no edema iv site ok Lab data: On chemistry panel the albumin is low otherwise unremarkable Radiology (I reviewed the images from the studies listed below): CT chest yesterday shows persistent right upper lobe mass with erosion into 3rd and 4th vertebral bodies and right ribs, some lymphangitic spread to the right lower lobe CT abdomen pelvis with now some sapphire nephric adenopathy and left adrenal gland mass suggesting Mets that are new Objective: Vital Signs Temp Pulse Resp BP Pulse Ox 36.9 C 114 H 18 138/86 H 90 L 03/28/18 15:32 03/28/18 15:32 03/28/18 15:32 03/28/18 15:32 03/28/18 15:32 Laboratory Results 03/26/18 04:04 03/28/18 04:30 03/27/18 03/28/18 03/29/18 06:59 06:59 06:59 Intake Total 1840 500 300 Output Total 1200 Balance 1840 500 -900 PT 14.3 SEC (12.0-15.0) 03/25/18 08:10 INR 1.09 (0.83-1.16) 03/25/18 08:10 ICD10 Worksheet Patient Problems: Problems Problem Status Onset Adenocarcinoma of lung Acute Chest pain Acute Metastasis from breast cancer Acute Breast cancer Acute Cancer associated pain Acute Dehydration Acute Pulmonary embolism Acute
[2018-03-28] MEDS: MELATONIN 3 MG TAB PO SCH (19:50)
[2018-03-29] MEDS: LORazepam 1 MG TAB PO PRN (01:05)
[2018-03-29 08:16] VITALS: BP 136/87
[2018-03-29] MEDS: NS 1,000 ML IV SCH (08:18)
[2018-03-29] MEDS: guaiFENesin 600 MG TAB.ER PO SCH (08:21)
[2018-03-29] MEDS: BENZONATATE 100 MG CAP PO SCH (08:21)
[2018-03-29] MEDS: RIVAROXABAN 15 MG TAB PO SCH (08:21)
[2018-03-29] MEDS: morphINE SR 15 MG TAB PO SCH (08:23)
--- NOTE | 2018-03-29 09:07 | HOSPPROG ---
Hospitalist Progress Note Assessment/Plan: Metastatic small cell lung cancer with a large mass in the right upper thorax causing destruction of ribs. No response to radiation therapy given in January. -pain control has been difficult (neurontin, opiates, nsaid's, lidoderm, steroids have been tried) -palliative chemo started yesterday per onc: taxol/carboplatin, unclear when next dose is due, will d/w onc today Odynophagia with N/V - tolerating a diet today H/O PE - cont Xarelto Hypokalemia - resolved Malnutrition - albumin 2.9 -dietary consult to help with protein goals Dispo - PICC placed yesterday, pt is homeless and may be moving to [facility] [place]. She probably should not DC with a PICC. Full code Objective: Vital Signs Temp Pulse Resp BP Pulse Ox 36.6 C 93 18 136/87 H 94 03/29/18 08:12 03/29/18 08:12 03/29/18 08:12 03/29/18 08:12 03/29/18 08:12 Laboratory Results 03/26/18 04:04 03/28/18 04:30 03/28/18 03/29/18 03/30/18 05:59 05:59 05:59 Intake Total 500 1932 Output Total 2200 Balance 500 -268 PT 14.3 SEC (12.0-15.0) 03/25/18 08:10 INR 1.09 (0.83-1.16) 03/25/18 08:10 ICD10 Worksheet Patient Problems: Problems Problem Status Onset Adenocarcinoma of lung Acute Chest pain Acute Metastasis from breast cancer Acute Breast cancer Acute Cancer associated pain Acute Dehydration Acute Pulmonary embolism Acute
--- NOTE | 2018-03-29 13:58 | ASDISCHSUM ---
Discharge Information Plan Status:Home with No Needs Medically Cleared to Leave:03/29/2018 Discharge Date:03/29/2018 CM D/C Disposition:Home, Routine, Self-Care ADT D/C Disposition:Home, Routine, Self-Care Projected Discharge Date:03/29/2018 Transportation at D/C:Family Discharge Delay Reason: Follow-Up Date:03/29/2018 Discharge Slot: Final Diagnosis: Placement Information Patient Contact Information Contact Name:LEXII Relationship:Other Address:[address] Work Phone: City:[place] Alternate Phone: State/Zip Code:[place] [address] Email: Financial Information Financial Class:Medicaid Primary Plan Desc:[employer] [place] [place] Primary Plan Number:[id number] Secondary Plan Desc: Secondary Plan Number: Assessment Information LACE LACE Length of stay for Answers: 4-6 days current admission Comorbidities - select Answers: Any tumor (including all that apply lymphoma or leukemia) Chronic pulmonary disease Opioid dependence / Chronic pain Other Notes: Hx of PE # of Emergency department Answers: 1-2 visits in the last 6 months Social determinants Answers: Homelessness (street, penitentiary) Score: 17 Date Signed: 03/29/2018 01:56 PM Electronically Signed By:Dottie Mason RN [facility] CM Progress Note CM Note CM Note Notes: Chart reviewed. Patient admitted via ED with c/o chest pain and pressure. Patient known to this staff. She is homeless patient with diagnosis of breast cancer with metastatic disease. Last discharged from here in January to [facility]. Here for pain control. Was at the ED in [place] this am but left. Needs to be determined. Plan: TBD Date Signed: 03/25/2018 12:16 PM Electronically Signed By:Dottie Mason RN [facility] Progress Note CM Note CM Note Notes: Met with patient to assess for discharge needs. Patient is defensive when I ask where she is living and states she is moving to [place] with her SO and friends. She is complaining of pain and some wheezing in her chest. She is requesting her nurse. CM to follow for needs. Plan: TBD Date Signed: 03/26/2018 12:09 PM Electronically Signed By:Dottie Mason RN [facility] CM Progress Note CM Note CM Note Notes: Chart reviewed. Patient suffers intractable pain due to tumor invasion in chest wall. Patient seen by hospital medicine and oncology. Agreeable to palliative interventions to try to reduce pain. Picc placed. CT of chest and abdomen done. To have cycle of chemo as inpatient. CM to follow for needs. Plan: TBD Date Signed: 03/28/2018 09:48 AM Electronically Signed By:Dottie Mason RN Intervention Information
--- NOTE | 2018-03-29 14:22 | GDS ---
DISCHARGE DIAGNOSES: 1. Metastatic small cell lung cancer. 2. Oncologic pain related to right upper thorax mass causing destruction of the ribs. 3. Odynophagia, improved. 4. Nausea/vomiting, resolved. 5. History of pulmonary embolism. 6. Chronic anticoagulation with Xarelto. 7. Hypokalemia, resolved. 8. Malnutrition. CONSULTANTS: Dr. Emanuel Romero, Oncology. PROCEDURES: PICC line insertion, March 27, 2018. HISTORY: For details, please see history and physical dated March 25, 2018. In brief, the patie ramses is a 58-year-old female with a history of metastatic small-cell lung cancer who presented to the e mergency department with chest pain. She was admitted to the hospital for further management. HOSPITAL COURSE: Patient was admitted to the Cancer Care Unit. It is suspected her right thorax mas s, which is causing some bony destruction of the ribs, was the source of her pain. She was started o n MS Contin with oral Dilaudid for breakthrough pain, and this did help improve her symptoms. In add ition, she suffered from odynophagia, nausea, and vomiting. This is resolved, and she is now tolerat ing a full diet. She actually ate an entire omelet during my visit. She was seen by Dr. Murphy, on cologist, and it was decided to proceed with inpatient chemotherapy. A PICC line was placed, and she received Taxol/carboplatin regimen inpatient. She was informed that her cancer is not curable, and treatment is palliative. She is actually planning to move to [place] in the near future as corrina stallworth is currently homeless, living in a car with her boyfriend. It is recommended that she follow up [facility] next week for labs to assess her blood counts at her radha after chem otherapy. On the day of discharge, her vital signs are stable. She is 94% on room air. Heart rate o f 93, respiratory rate of 18. Her blood pressure is 136/87. DISPOSITION: Patient is discharged home in stable condition. FOLLOWUP: Dr. Levon Montelongo, [facility], in 1 week for labs. DISCHARGE MEDICATIONS: Please see [facility] for completed outpatient medication list. New medication s on discharge include MS Contin 15 mg p.o. t.i.d., #21, no refills; Dilaudid 2 mg p.o. q.6 hours p.r .n. #30, no refills; Tessalon Perles 200 mg p.o. t.i.d. p.r.n., #30, no refills; guaifenesin 1200 mg p.o. b.i.d., #30, no refills; melatonin 3 mg p.o. q.h.s. She will continue all her other outpatient medications as previously prescribed, including Xarelto 15 mg p.o. daily, albuterol, Rajinder Irene. /[id number]/MODL
== END 2018-03-29 14:29 | disposition home or self-care (01) | DRG 136 ==
LOC: SUPCPDRO 07:50 → OBSVTOIN 09:55 → F1N 10:27
PROVIDERS: ADMIT Internal Medicine; ATTEND Internal Medicine
DX: C78.01 Secondary malignant neoplasm of right lung (principal); E46 Unspecified protein-calorie malnutrition; E86.9 Volume depletion, unspecified; G89.3 Neoplasm related pain (acute) (chronic); E87.6 Hypokalemia; J44.9 Chronic obstructive pulmonary disease, unspecified; Z85.3 Personal history of malignant neoplasm of breast; Z59.0 Homelessness; Z79.01 Long term (current) use of anticoagulants; Z86.711 Personal history of pulmonary embolism
CPT/HCPCS: 84484-PO; 96374; C1751; J1100; J1170; J1200; J1885; J2405; J2469; J9045; J9267

== ENCOUNTER 2018-03-31 12:18 | Inpatient (IN) | payer MEDICAID ==
--- NOTE | 2018-03-31 13:02 | EDPHY ---
H & P Time Seen by Provider: 03/31/18 12:51 HPI/ROS: CHIEF COMPLAINT: Chest pain HISTORY OF PRESENT ILLNESS: Patient was discharged 2 days ago after being admitted for history of pulmonary embolism and lung cancer. She says she has not been able to take her anticoagulants since she was discharged and she presents with which she describes as severe left-sided chest pain radiating to her right arm associated with shortness of breath and feeling that somewhat is "sitting on me." She said she was getting nosebleeds on the Xarelto which is why she stopped taking the medication. Chest pains not associated with hemoptysis but she does have a little bit of a dry cough. She does have bilateral leg edema. Symptoms moderate to severe, not better worse with anything. REVIEW OF SYSTEMS: Eye: no change in vision ENT: no sore throat Cardiac: HPI Pulmonary: HPI Abdomen: no vomiting, diarrhea, abdominal pain Musculoskeletal: Bilateral lower extremity edema and swelling Skin: no rash Neuro: no headache Constitutional: no fever : no urinary symptoms A comprehensive 10 point review of systems is otherwise negative aside from elements mentioned in the history of present illness. PAST MEDICAL HISTORY: Discharged 03/29/2018 but has not been on anticoagulation since then. Includes lung cancer, breast cancer, chronic pain, pulmonary embolism, asthma Social history: Continues to smoke cigarettes General Appearance: Alert and conversant, cooperative. Eyes: No scleral icterus. ENT, Mouth: Normal mucous membranes. Respiratory: Bilateral expiratory wheezes and scattered rhonchi, breath sounds symmetric. Cardiovascular: Regular rate and rhythm. Gastrointestinal: Abdomen is soft and non tender. Neurological: Alert, face symmetric, normal motor and sensory in extremities. Skin: Warm and dry, no rashes. Musculoskeletal: Bilateral 4+ pedal edema without calf tenderness. Psychiatric: Not agitated. Emergency Department course/MDM: DuoNeb, i-STAT, IV fluids for heart rate 123 and blood pressure 95/72. Low suspicion for acute infection. CT angiography of the chest discussed and consented. 1427: CT per Ciro; tumor, no PE, no change. Admit for symptom control with answer, wheezing, poor outpatient follow-up, significant underlying disease. Smoking Status: Former smoker Constitutional: Initial Vital Signs Temperature (C) 36.5 C 03/31/18 12:19 Heart Rate 123 H 03/31/18 12:19 Respiratory Rate 20 03/31/18 12:19 Blood Pressure 95/72 L 03/31/18 12:19 O2 Sat (%) 94 03/31/18 12:19 O2 Delivery Mode Nasal Cannula O2 (L/minute) 2 Allergies/Adverse Reactions: Sulfa (Sulfonamide Antibiotics) Allergy (Intermediate, Verified 03/31/18 12:19) rash/swelling acetaminophen [From Vicodin] Allergy (Mild, Verified 03/31/18 12:19) Rash codeine Allergy (Mild, Verified 03/31/18 12:19) Rash hydrocodone [From Vicodin] Allergy (Mild, Verified 03/31/18 12:19) Rash NSAIDS (Non-Steroidal Anti-Inflamma Allergy (Mild, Verified 03/31/18 12:19) GI upset Penicillins Allergy (Mild, Verified 03/31/18 12:19) Rash fentanyl Allergy (Verified 03/31/18 12:19) sugar substitutes Allergy (Intermediate, Uncoded 01/22/18 11:27) Swelling/neck,face,throat Home Medications: Medication Instructions Recorded Albuterol [Proventil Inhaler HFA 2 puffs IH BID PRN 01/16/18 (*)] Rivaroxaban [Xarelto 15mg (*)] 15 mg PO DAILY 01/16/18 Benzonatate [Tessalon Pearles] 200 mg PO TID PRN #30 cap 03/29/18 HYDROmorphone HCL [Dilaudid 2 mg 2 mg PO Q6HRS PRN #30 tab 03/29/18 (*)] morphINE SR [Ms Contin/Oramorph 15 15 mg PO TID PRN 03/31/18 mg (*)] Medical Decision Making - Diagnostics EKG Interpretation: 12-lead EKG interpreted by me; official reading is in computer system. My interpretation is sinus tachycardia with right bundle-branch block rate 110 no ischemic changes. Imaging Results: Imaging Impressions Chest/Thorax CTA 03/31/18 13:20 Impression: 1. Persistent occlusion of the right upper lobe pulmonary artery by the patient' s known malignancy, with no visible pulmonary embolus. 2. Stable right upper lobe mass with chest wall and mediastinal invasion and layton and possibly adrenal metastases. 3. Increased ground-glass opacities in the left lobe, which could be related to airways disease/inflammation. 4. Grossly stable indistinct right lower lobe nodules that could be related to metastases/lymphangitic tumor spread. 5. Additional findings as above. Findings discussed with Dr. Prabhakar Landry on 03/31/2018 at 14:26. Imaging: Discussed imaging studies w/ at home independent call center agent Radiologist Differential Diagnosis: Differential diagnosis considered for chest pain including but not limited to myocardial ischemia, aortic dissection, pericarditis, pulmonary embolus, chest wall pain, pleural inflammation and pulmonary infectious causes. Consult/Admit Bed Type: [place] [id number] - Data Points Laboratory Results: Laboratory Results 03/31/18 13:00 03/31/18 13:00 03/31/18 03/31/18 03/31/18 13:12 13:10 13:00 WBC RBC Hgb POC Hgb 13.3 gm/dL gm/dL (12.6-16.3) Hct POC Hct 39 % % (38-47) MCV MCH MCHC RDW Plt Count MPV Neut % (Auto) Lymph % (Auto) [place] % (Auto) Eos % (Auto) Baso % (Auto) Nucleat RBC Rel Count Absolute Neuts (auto) Absolute Lymphs (auto) Absolute Monos (auto) Absolute Eos (auto) Absolute Basos (auto) Absolute Nucleated RBC Immature Gran % Immature Gran # POC Sodium 137 mEq/L mEq/L (135-145) Sodium 134 mEq/L L mEq/L (135-145) POC Potassium 3.8 mEq/L mEq/L (3.3-5.0) Potassium 4.3 mEq/L mEq/L (3.3-5.0) POC Chloride 101 mEq/L mEq/L (97-110) Chloride 101 mEq/L mEq/L (97-110) Carbon Dioxide 24 mEq/l mEq/l (22-31) Anion Gap 9 mEq/L mEq/L (8-16) POC BUN 12 mg/dL mg/dL (7-23) BUN 13 mg/dL mg/dL (7-23) Creatinine 0.4 mg/dL L mg/dL (0.6-1.0) POC Creatinine 0.3 mg/dL L mg/dL (0.6-1.0) Estimated GFR > 60 Glucose 114 mg/dL H mg/dL (70-100) POC Glucose 114 mg/dL H mg/dL (70-100) Calcium 9.2 mg/dL mg/dL (8.5-10.4) POC Troponin I 0.00 ng/mL ng/mL (0.00-0.08) 03/31/18 13:00 WBC 5.91 10^3/uL 10^3/uL (3.80-9.50) RBC 4.42 10^6/uL 10^6/uL (4.18-5.33) Hgb 12.2 g/dL L g/dL (12.6-16.3) POC Hgb Hct 38.3 % % (38.0-47.0) POC Hct MCV 86.7 fL fL (81.5-99.8) MCH 27.6 pg L pg (27.9-34.1) MCHC 31.9 g/dL L g/dL (32.4-36.7) RDW 17.7 % H % (11.5-15.2) Plt Count 254 10^3/uL 10^3/uL (150-400) MPV 10.4 fL fL (8.7-11.7) Neut % (Auto) 84.1 % H % (39.3-74.2) Lymph % (Auto) 11.5 % L % (15.0-45.0) [place] % (Auto) 1.9 % L % (4.5-13.0) Eos % (Auto) 1.9 % % (0.6-7.6) Baso % (Auto) 0.3 % % (0.3-1.7) Nucleat RBC Rel Count 0.0 % % (0.0-0.2) Absolute Neuts (auto) 4.97 10^3/uL 10^3/uL (1.70-6.50) Absolute Lymphs (auto) 0.68 10^3/uL L 10^3/uL (1.00-3.00) Absolute Monos (auto) 0.11 10^3/uL L 10^3/uL (0.30-0.80) Absolute Eos (auto) 0.11 10^3/uL 10^3/uL (0.03-0.40) Absolute Basos (auto) 0.02 10^3/uL 10^3/uL (0.02-0.10) Absolute Nucleated RBC 0.00 10^3/uL 10^3/uL (0-0.01) Immature Gran % 0.3 % % (0.0-1.1) Immature Gran # 0.02 10^3/uL 10^3/uL (0.00-0.10) POC Sodium Sodium POC Potassium Potassium POC Chloride Chloride Carbon Dioxide Anion Gap POC BUN BUN Creatinine POC Creatinine Estimated GFR Glucose POC Glucose Calcium POC Troponin I Medications Given: Discontinued Medications Albuterol/Ipratropium (Duoneb) 3 ml IH EDNOW ONE Stop: 03/31/18 13:04 Last Admin: 03/31/18 13:25 Dose: 3 ml Ondansetron HCl (Zofran) 4 mg IVP EDNOW ONE Stop: 03/31/18 13:24 Last Admin: 03/31/18 13:25 Dose: 4 mg Point of Care Test Results: Chemistry 03/31/18 03/31/18 13:12 13:10 POC Sodium 137 mEq/L mEq/L (135-145) POC Potassium 3.8 mEq/L mEq/L (3.3-5.0) POC Chloride 101 mEq/L mEq/L (97-110) POC BUN 12 mg/dL mg/dL (7-23) POC Creatinine 0.3 mg/dL L mg/dL (0.6-1.0) POC Glucose 114 mg/dL H mg/dL (70-100) POC Troponin I 0.00 ng/mL ng/mL (0.00-0.08) ISTAT H&H 03/31/18 13:12 POC Hgb 13.3 gm/dL gm/dL (12.6-16.3) POC Hct 39 % % (38-47) Departure - Departure Disposition: [facility] Inpatient Acute Clinical Impression: Chest pain Qualifiers: Chest pain type: unspecified Qualified Code(s): R07.9 - Chest pain, unspecified Condition: Fair
[2018-03-31] MEDS ORDERED: IPRATROPIUM/ALBUTEROL 3 ML DEYVIAL IH ONE (13:03)
[2018-03-31 13:16] LABS: PLATELET COUNT 254 10^3/uL (150-400)
--- NOTE | 2018-03-31 13:19 | CPEKG ---
Test Reason : OPEN Blood Pressure : / mmHG Vent. Rate : 110 BPM Atrial Rate : 110 BPM P-R Int : 133 ms QRS Dur : 122 ms QT Int : 370 ms P-R-T Axes : 057 076 017 degrees QTc Int : 501 ms Sinus tachycardia Right bundle branch block Confirmed by Prabhakar Landry ([id number]) on 03/31/2018 1:18:41 PM Referred By: Confirmed By:Prabhakar Landry
[2018-03-31] MEDS ORDERED: ONDANSETRON 4 MG/2 ML VIAL ONE (13:22)
[2018-03-31] MEDS ORDERED: ONDANSETRON 4 MG/2 ML VIAL IVP ONE (13:23)
[2018-03-31] MEDS ORDERED: IOPAMIDOL (ISOVUE 370) 100 ML BTL IV ONE (13:24)
[2018-03-31] MEDS ORDERED: ONDANSETRON DISINTEGRATING 4 MG TAB PO PRN (15:57)
[2018-03-31] MEDS ORDERED: ONDANSETRON 4 MG/2 ML VIAL IVP PRN (15:57)
[2018-03-31] MEDS ORDERED: ALBUTEROL 60 PUFFS/8 GM MDI IH PRN (16:00)
[2018-03-31] MEDS ORDERED: BENZONATATE 100 MG CAP PO PRN (16:00)
[2018-03-31] MEDS: NS 1,000 ML IV SCH (16:26)
[2018-03-31] MEDS: morphINE SR 15 MG TAB PO SCH ×2 (16:26→22:10)
[2018-03-31] MEDS: RIVAROXABAN 15 MG TAB PO SCH (16:34)
--- NOTE | 2018-03-31 17:08 | GHP ---
DATE OF ADMISSION: 03/31/2018 HISTORY OF PRESENT ILLNESS: Ms. Damon is a pleasant 58-year-old female with history of metastatic marylou ng cancer and pulmonary embolism, who was just discharged from the hospital 2 days ago. She presents today with pain in her abdomen. She said she had some diarrhea and some abdominal pain as well as s hortness of breath and rib pain. When I speak with her, she is a somewhat reluctant historian, grumbling that she has just given all h er information. She says she is living with some friends at a friend's house in [place]. She has n ot had fever, chills, cough, sputum, nausea, vomiting, but then, she says she had an episode of what was a viral gastroenteritis. She stopped taking her Xarelto because she had a nosebleed and some blo od from her rectum. She said it was a small amount. She has not had black stools, has not had hemat emesis or coffee-ground emesis. She has not had an attempt at a nerve block for her chest wall invading lung cancer. REVIEW OF SYSTEMS: Complete 10-point review of systems conducted and negative except as noted in the HPI. PAST MEDICAL HISTORY: 1. Pulmonary embolism in December. 2. Metastatic lung cancer on the right. 3. Prior history of breast cancer. 4. Hypercalcemia of malignancy. 5. COPD. 6. Homelessness. 7. Tobacco use. FAMILY HISTORY: Reviewed and unremarkable. SOCIAL HISTORY: She smokes some cigarettes, is homeless. ALLERGIES: Sulfa, Tylenol, codeine, NSAIDs, penicillin, hydrocodone, fentanyl, sugar substitutes. HOME MEDICATIONS: Rivaroxaban, hydromorphone, Tessalon Perles, albuterol, MS Marcelo. PHYSICAL EXAMINATION: PRESENTING VITALS: Temp 36.5, blood pressure 95/75, pulse 123, now 104, breat brendan 20 times a minute, 94% on room air, 97 on 2 L. GENERAL: In no acute distress. HEENT: Sclerae anicteric. Oropharynx clear. Mucous membranes moist. NECK: Supple. No lymphadenopathy or JVD. L UNGS: Clear to auscultation bilaterally. HEART: S1, S2. ABDOMEN: Soft, nontender, nondistended wi th no rebound or guarding. EXTREMITIES: Lower extremities show 2+ edema bilaterally. Calves are nont erica. SKIN: Without rash. NEUROLOGIC: Exam is nonfocal. LABORATORY STUDIES: EKG interpreted by me shows right bundle branch block, sinus tach at [address] or T-wave changes. This right bundle is not new. CTA of the chest: She has persistent occlusion of the right upper lobe artery as seen by the patient 's known malignancy right upper lobe mass with chest wall and mediastinal invasion, possibly adrenal metastases, increased lung opacity left lobe. I discussed the case with Dr. Winter, with Dr. Prabhakar Landry. LABS: White count 6, hematocrit 38, which is baseline, platelets 254,000. Sodium 134, potassium 4.3 , chloride 101, bicarb 24, BUN 13, creatinine 0.4, glucose 114. Troponin 0. ASSESSMENT/PLAN: A 58-year-old female with metastatic lung cancer, here with pain, nosebleed, possib le rectal bleed, abdominal pain. 1. Abdominal pain. She has a benign exam. It is difficult to exactly sort this out. She does not have a white count, she does not have a fever. She was tachycardic on presentation. Review of her v itals reveals a persistent tachycardia. We will check an abdominal film and follow. 2. Bright red blood per rectum. I will continue her anticoagulation for now and follow her hematocr it. This sounds hemorrhoidal. 3. Metastatic lung cancer with uncontrolled pain. I reached out to Interventional Radiology about th e possibility of a nerve plexus block as this may provide her some better relief. 4. Pulmonary embolism. Restart her Pradaxa. She does not have a new event. 5. Hyponatremia. This is mild, follow. 6. Diarrhea. I have sent a GI pathogen panel if she continues to have diarrhea or vomiting. 7. Disposition: Inpatient status. /[id number]/MODL
[2018-03-31] MEDS: HYDROmorphONE/DILAUDID 2 MG TAB PO PRN ×2 (18:06→23:46)
[2018-04-01] MEDS: HYDROmorphone HCL 0.5 MG/0.5 ML SYR IVP PRN ×3 (01:23→13:59)
[2018-04-01] MEDS: diphenhydrAMINE 25 MG CAP PO PRN ×2 (03:43→16:56)
[2018-04-01 04:55] LABS: PLATELET COUNT 214 10^3/uL (150-400)
[2018-04-01 05:03] LABS: INR 1.36 (0.83-1.16); PROTIME(PATIENT) 16.9 SEC (12.0-15.0)
[2018-04-01] MEDS: HYDROmorphONE/DILAUDID 2 MG TAB PO PRN ×3 (06:40→19:03)
--- NOTE | 2018-04-01 08:52 | PDMN ---
Medical Necessity Medical necessity: Pt meets INPT criteria per MD as of 03/31/18 and MCG Pain Mgmt GRG (est. LOS >2 MN for eval/tx of metastatic lung cancer with uncontrolled pain, persistent tachycardia, possible rectal bleed, hyponatremia).
[2018-04-01] MEDS: morphINE SR 15 MG TAB PO SCH ×2 (08:59→16:56)
[2018-04-01] MEDS: RIVAROXABAN 15 MG TAB PO SCH (08:59)
--- NOTE | 2018-04-01 10:51 | HOSPPROG ---
Hospitalist Progress Note Assessment/Plan: Patient is new to my care today. Reviewed H&P, prior records. Of note, she is poor historian #Acute abdominal pain: no acute findings on CT. LFTs, lipase and trops negative #Metastatic lung cancer: RUL artery chronically occluded, chest wall/ mediastinal invasion -first chemo this past week. She is unclear if wants to continue. Appears to be poor candidate given social situation, lack of social support. -Palliative Care consulted for pain control, goals. Cog eval to ensure decisional -Increase MS Contin to 30mg BID #Acute back pain: L2 subacute fx on x-ray. No bowel/bladder incontinence. -MRI with sedation in morning. Depending on MRI, Dr. Lee may do kyphoplasty or nerve block for pain relief -hold Xarelto for procedure #Homelessness: staying with some friends #COPD: duonebs #Pulmonary embolism: Xarelto on hold for procedure #Tobacco dependence #h/o breast cancer: #Goals: PC consulted for pain control Time spent on visit: 45 min bedside, reviewing records, examining pt and d/w Dr. Lee Subjective: c/o chest pain, chronic lumbar pain, cough. No bowel/bladder incontinence Objective: Vital Signs Temp Pulse Resp BP Pulse Ox 36.9 C 101 H 20 105/44 L 92 04/01/18 08:00 04/01/18 08:00 04/01/18 08:00 04/01/18 08:00 04/01/18 08:00 Laboratory Results 04/01/18 04:46 04/01/18 04:46 03/31/18 04/01/18 04/02/18 05:59 05:59 05:59 Intake Total 420 Balance 420 PT 16.9 SEC (12.0-15.0) H 04/01/18 04:46 INR 1.36 (0.83-1.16) H 04/01/18 04:46 - Time Spent With Patient Time Spent with Patient: greater than 35 minutes Time Spent with Patient: Greater than 35 minutes spent on this patients care, greater than 50% of time spent counseling, educating, and coordinating care regarding the above mentioned plan. - Physical Exam Constitutional: unkempt Eyes: PERRL Ears, Nose, Mouth, Throat: moist mucous membranes Cardiovascular: tachycardia Respiratory: reduced air movement, expiratory wheeze Gastrointestinal: normoactive bowel sounds Genitourinary: no bladder fullness Skin: warm Musculoskeletal: other (moving all 4 extremities. Will lift both legs, but not fully cooperative with exam ) Neurologic: CN II-XII Intact Psychiatric: anxious ICD10 Worksheet Patient Problems: Problems Problem Status Onset Chest pain Acute Adenocarcinoma of lung Acute Breast cancer Acute Cancer associated pain Acute Dehydration Acute Metastasis from breast cancer Acute Pulmonary embolism Acute
[2018-04-01] MEDS ORDERED: IPRATROPIUM/ALBUTEROL 3 ML DEYVIAL IH PRN (10:56)
[2018-04-01] MEDS ORDERED: BISACODYL 10 MG SUPP PR PRN (11:39)
[2018-04-01] MEDS ORDERED: LACTULOSE 20 GM/30 ML UDCUP PO PRN (11:39)
[2018-04-01] MEDS: MAGNESIUM HYDROXIDE 30 ML UDCUP PO PRN (12:36)
[2018-04-01] MEDS: POLYETHYLENE GLYCOL 3350 17 GM PKT PO PRN (12:36)
[2018-04-01] MEDS ORDERED: TRIAMCINOLONE ACETONIDE 200 MG/5 ML MDV IM ONE (14:36)
[2018-04-01] MEDS ORDERED: IOPAMIDOL (ISOVUE-M 300) 15 ML VIAL ONE (14:36)
--- NOTE | 2018-04-01 16:31 | ASMTCMCOM ---
CM Note CM Note Notes: Pt has been admitted with abdominal pain. She has a dx of metastatic lung CA, breast CA, COPD, pulmonary embolism. She has started chemo recently. She was discharged just 2 days ago from [facility]. She is homeless although lives with friends in [place] and/or out of her partner's car at times. Palliative care consult requested as well as IR for a possible plexus nerve block. Received call from Sally Schilling at [facility] [phone] who said she applied for a [email or web address] mily on hehalf of the pt and the check may come here due to pt not having a firm address to send it to. She has been to [facility] in January but left AMA and they will not take her back. PT/OT evals have been ordered and pending. A request for an evaluation for possible transfer to the OPAL inpatient unit for symptom management has been initiated. Date Signed: 04/01/2018 04:31 PM Electronically Signed By:LES Rubio
[2018-04-01] MEDS ORDERED: LORazepam 2 MG/ML INJ IVP ONE ×2 (20:31→23:11)
[2018-04-01] MEDS: SENNOSIDES/DOCUSATE SODIUM TAB PO SCH (20:50)
[2018-04-01] MEDS: morphINE SR 30 MG TAB PO SCH (20:51)
[2018-04-02] MEDS: diphenhydrAMINE 25 MG CAP PO PRN ×2 (01:04→20:26)
[2018-04-02] MEDS: HYDROmorphone HCL 0.5 MG/0.5 ML SYR IVP PRN ×3 (05:30→18:40)
[2018-04-02] MEDS: LORazepam 2 MG/ML INJ IVP PRN ×2 (05:41→20:26)
[2018-04-02] MEDS: morphINE SR 30 MG TAB PO SCH ×2 (08:54→20:26)
--- NOTE | 2018-04-02 08:56 | CPEKG ---
Test Reason : OPEN Blood Pressure : / mmHG Vent. Rate : 115 BPM Atrial Rate : 115 BPM P-R Int : 138 ms QRS Dur : 133 ms QT Int : 335 ms P-R-T Axes : 058 070 002 degrees QTc Int : 464 ms Sinus tachycardia Supraventricular bigeminy Probable left atrial enlargement Right bundle branch block Confirmed by Srinath Morales ([id number]) on 04/02/2018 8:55:39 AM Referred By: Confirmed By:Sirnath Morales
--- NOTE | 2018-04-02 10:35 | ASMTCMCOM ---
CM Note CM Note Notes: Shirley from [facility] hospice called; they have declined Pt due to have a waiting list and not having the resources to develop a safe d/c plan for a pt that is homeless. She will call if this changes in the future. CM to follow. D/C Plan: TBD Date Signed: 04/02/2018 10:35 AM Electronically Signed By:Carol Gomez
[2018-04-02] MEDS: HYDROmorphONE/DILAUDID 2 MG TAB PO PRN ×2 (11:05→17:05)
[2018-04-02] MEDS ORDERED: PROPOFOL/EMULSION 500 MG/50 ML BOTTLE IV ONE (13:24)
[2018-04-02] MEDS ORDERED: PROPOFOL 200 MG/20 ML VIAL ONE (13:24)
[2018-04-02] MEDS ORDERED: SUCCINYLCHOLINE CHLORIDE 200 MG/10 ML VIAL ONE (13:31)
[2018-04-02] MEDS ORDERED: ROCURONIUM 100 MG/10 ML VIAL ONE (13:32)
--- NOTE | 2018-04-02 14:53 | HOSPPROG ---
Hospitalist Progress Note Assessment/Plan: #Acute abdominal pain: no acute findings on CT. LFTs, lipase and trops negative #Metastatic lung cancer: RUL artery chronically occluded, chest wall/ mediastinal invasion -first chemo this past week. She is unclear if wants to continue. Appears to be poor candidate given social situation, lack of social support. -Palliative Care consulted for pain control, goals. Cog eval to ensure decisional -Increase MS Contin to 30mg BID #Acute back pain: L2 subacute fx on x-ray. No bowel/bladder incontinence. -MRI was ordered for today but she had some candelaria wilber and thus were still trying to figure out she would get this done today or over the weekend. She needs anesthesia for MRI. Depending on MRI, Dr. Lee may do kyphoplasty or nerve block for pain relief -hold Xarelto for procedure #Homelessness: staying with some friends #COPD: duonebs #Pulmonary embolism: Xarelto on hold for procedure #Tobacco dependence #h/o breast cancer: #Goals: PC consulted for pain control Subjective: Still having significant back pain Objective: Vital Signs Temp Pulse Resp BP Pulse Ox 36.8 C 110 H 16 101/49 L 94 04/02/18 12:20 04/02/18 12:20 04/02/18 12:20 04/02/18 12:20 04/02/18 12:20 Microbiology 04/01/18 11:20 Respiratory Panel (PCR) - Final Nasal, Sinus - Swab No Organism Detected Laboratory Results 04/01/18 04:46 04/01/18 04:46 04/01/18 04/02/18 04/03/18 05:59 05:59 05:59 Intake Total 420 1000 Output Total 600 100 Balance 420 400 -100 PT 16.9 SEC (12.0-15.0) H 04/01/18 04:46 INR 1.36 (0.83-1.16) H 04/01/18 04:46 - Physical Exam Constitutional: no apparent distress, appears nourished, not in pain Eyes: anicteric sclera, EOMI Ears, Nose, Mouth, Throat: moist mucous membranes, hearing normal Cardiovascular: regular rate and rhythym, edema Respiratory: no respiratory distress Skin: warm Neurologic: AAOx3 Psychiatric: interacting appropriately, not anxious, not encephalopathic, thought process linear ICD10 Worksheet Patient Problems: Problems Problem Status Onset Chest pain Acute Adenocarcinoma of lung Acute Breast cancer Acute Cancer associated pain Acute Dehydration Acute Metastasis from breast cancer Acute Pulmonary embolism Acute
--- NOTE | 2018-04-02 15:14 | PDCONSULT ---
Guide Setter Note: Ms. Damon is a 58 year old female with locally advanced NSCLC admitted for acute low back pain. She was recently admitted and discharged for right sided chest pain which was felt to be due to her lung cancer eroding into her ribs/chest wall. She was started on palliative chemotherapy with carboplatin and paclitaxel 03/28 and was discharged 03/29/18. She was re-admitted 03/31 with acute lumbar back pain. She reports the back pain is new. She has some paresthesias in the feet which are chronic but she thinks things may have worsened a bit. She also reports a bit of a cough as well which she feels is new as well. She says the pain is sharp and moves up the spine. No radicular symptoms. She reports some chills and sweats as well. She was seen in the ER and chest x-ray showed stable right lung mass and subacute L2 fracture. She also reports some bright red blood per rectum Review of Systems A complete 12 point ROS was negative unless indicated in the history of the present illness PMH -History of left sided triple negative breast cancer in 2001 with surgery followed by XRT and chemotherapy -COPD -Pulmonary embolism PSH -left breast cancer surgery SH -Active tobacco user, homeless, recently was kicked out of friends truck because she insulted their dog FH -No family history of cancer Allergies - reviewed in chart Medications reviewed in the [facility] Physical examination General; no acute distress, non toxic appearing HEENT: PERRL, no icterus or pallor, oral mucosa is moist Neck: supple CV: RRR without rubs thrills or gallops Chest: Poor inspiratory effort, dry crackles heard throughout but faint Abdomen: soft, nontender, no HSM Extremities: warm and well perfused, 1+ non pitting edema Neurologic: alert and oriented, normal gait, pain to palpation of lumbar spinous process, not cooperative with LE examination but is able to walk without difficulty or help Labs and Imaging reviewed in [facility] Assessment and Plan Patient is a 58 year year old female with locally advanced NSCLC admitted for new lumbar spine pain. #Lumbar back pain She has symptoms in both legs but on questioning this seems to be chronic and sounds more like neuropathy (caveat is patient is a poor historian). Her subacute L2 compression fracture is likely osteoporotic in nature however cannot exclude metastatic process. She is being evaluated for possible kyphoplasty and has an MRI today. -pain control per primary team -follow-up MRI #Locally advanced lung cancer Patient has received palliative XRT and first cycle of carboplatin paclitaxel . She is a patient of Dr. Weller. She has discussed moving to [place] recently for better [facility] services. I have spoken with case management and others to see about possibilities after hospitalization. Baron Morel Clinical Fellow
[2018-04-02] MEDS: SENNOSIDES/DOCUSATE SODIUM TAB PO SCH ×2 (15:30→20:26)
--- NOTE | 2018-04-02 15:55 | ASMTCMCOM ---
CM Note CM Note Notes: Spoke with Viviana at [facility] and received an e-mail from [facility]'s STEEL POST INSTALLER, Bharat Sneed. [facility] is considering patient for their inpatient hospice unit, however, there is currently a waiting list and no available beds. [facility] is willing to work with [facility] to brainstorm potential d/c solutions. I anticipate it will be difficult to place this patient in SNF - will continue to work with [facility] on the possibility of an inpatient hospice admission. Zena Clifton also involved and speaking with STE[employer] INSTALLER. Please call with questions. #[phone]. Plan: TBD. Potentially OPAL Inpatient Hospice Date Signed: 04/02/2018 03:54 PM Electronically Signed By:Chelle Estrada RN
[2018-04-02] MEDS: NS 1,000 ML IV SCH (20:28)
[2018-04-03] MEDS: HYDROmorphone HCL 0.5 MG/0.5 ML SYR IVP PRN ×5 (01:00→20:35)
[2018-04-03] MEDS: HYDROmorphONE/DILAUDID 2 MG TAB PO PRN ×2 (03:39→16:16)
[2018-04-03] MEDS: SENNOSIDES/DOCUSATE SODIUM TAB PO SCH ×2 (08:04→20:35)
[2018-04-03] MEDS: MAGNESIUM HYDROXIDE 30 ML UDCUP PO PRN (08:04)
[2018-04-03] MEDS: morphINE SR 30 MG TAB PO SCH ×2 (08:04→20:35)
[2018-04-03] MEDS: LORazepam 2 MG/ML INJ IVP PRN ×2 (08:05→17:30)
--- NOTE | 2018-04-03 08:44 | HOSPPROG ---
Hospitalist Progress Note Assessment/Plan: #Metastatic lung cancer: RUL artery chronically occluded, chest wall/ mediastinal invasion -first chemo this past week as inpt. Poor candidate for ongoing chemo given social situation, homelessness, lack of support and plans to possibly leave state. -Palliative Care consulted for pain control, goals. -speech consulted requested for cog eval to begin to assess decisional capacity , consider psych consult to further evaluate this -Pain control improved with increased MS Contin to 30mg BID #Acute back pain: L2 subacute fx on x-ray. No bowel/bladder incontinence. -MRI with sedation today. Depending on MRI, Dr. Lee may do kyphoplasty or nerve block for pain relief -holding Xarelto for procedure #Acute abdominal pain: no acute findings on CT. LFTs, lipase and trops negative #Homelessness: Pt notes may move to [place] and requested her records be sent to [facility] [place]. -CM involved #COPD: duonebs #Pulmonary embolism: Xarelto on hold for procedure #Tobacco dependence #h/o breast cancer #Dispo - cont inpt, CM involved in dispo planning as pt is homeless, PT/OT recommending SNF rehab Subjective: Pt continues to have back pain, b/l LE pain and chest wall pain. Denies fevers, chills or SOB. Appetite poor. Objective: Vital Signs Temp Pulse Resp BP Pulse Ox 37.3 C 110 H 18 109/49 L 96 04/03/18 04:00 04/03/18 04:00 04/03/18 04:00 04/03/18 04:00 04/03/18 04:00 Laboratory Results 04/01/18 04:46 04/01/18 04:46 04/02/18 04/03/18 04/04/18 05:59 05:59 05:59 Intake Total 1000 1624 Output Total 600 700 Balance 400 924 PT 16.9 SEC (12.0-15.0) H 04/01/18 04:46 INR 1.36 (0.83-1.16) H 04/01/18 04:46 - Physical Exam Constitutional: no apparent distress Eyes: PERRL Ears, Nose, Mouth, Throat: moist mucous membranes Cardiovascular: regular rate and rhythym Respiratory: no respiratory distress, reduced air movement Gastrointestinal: normoactive bowel sounds, soft, non-tender abdomen Skin: warm Musculoskeletal: full muscle strength Neurologic: AAOx3 Psychiatric: interacting appropriately ICD10 Worksheet Patient Problems: Problems Problem Status Onset Chest pain Acute Adenocarcinoma of lung Acute Breast cancer Acute Cancer associated pain Acute Dehydration Acute Metastasis from breast cancer Acute Pulmonary embolism Acute
[2018-04-03] MEDS ORDERED: ROCURONIUM 100 MG/10 ML VIAL ONE (10:19)
[2018-04-03] MEDS ORDERED: SUCCINYLCHOLINE CHLORIDE 200 MG/10 ML VIAL ONE (10:19)
--- NOTE | 2018-04-03 10:20 | PDANEPAE ---
ANE History of Present Illness Lumbar MRI ANE Past Medical History - Cardiovascular History Hx Hypertension: No Hx Arrhythmias: No Hx Chest Pain: No Hx Coronary Artery / Peripheral Vascular Disease: No Hx CHF / Valvular Disease: No Hx Palpitations: No - Pulmonary History Hx COPD: Yes Hx Asthma/Reactive Airway Disease: Yes Hx Oxygen in Use at Home: No Hx Sleep Apnea: No Sleep Apnea Screening Result - Last Documented: Positive - Endocrine History Hx Diabetes: No Hypothyroid: No Hyperthyroid: No Obesity: moderate - Chronic Pain History Chronic Pain: Yes ANE Review of Systems Review of Systems: - Exercise capacity METS (RN): 2 METS - Systems Constitutional: Reports: other (chronic pain) Cardiac: Reports: edema Respiratory: Reports: shortness of breath Gastrointestinal: Reports: constipation (Mild likely 2/2 chronic pain) Muscolosketal: Reports: back pain ANE Patient History - Allergies Allergies/Adverse Reactions: Sulfa (Sulfonamide Antibiotics) Allergy (Intermediate, Verified 03/31/18 12:19) rash/swelling acetaminophen [From Vicodin] Allergy (Mild, Verified 03/31/18 12:19) Rash codeine Allergy (Mild, Verified 03/31/18 12:19) Rash hydrocodone [From Vicodin] Allergy (Mild, Verified 03/31/18 12:19) Rash NSAIDS (Non-Steroidal Anti-Inflamma Allergy (Mild, Verified 03/31/18 12:19) GI upset Penicillins Allergy (Mild, Verified 03/31/18 12:19) Rash fentanyl Allergy (Verified 03/31/18 12:19) sugar substitutes Allergy (Intermediate, Uncoded 01/22/18 11:27) Swelling/neck,face,throat - Home Medications Home medications: home medication list seen and reviewed Home Medications: Albuterol [Proventil Inhaler HFA (*)] 2 puffs IH BID PRN 01/16/18 [Last Taken ] Rivaroxaban [Xarelto 15mg (*)] 15 mg PO DAILY 01/16/18 [Last Taken 03/24/18] morphINE SR [Ms Contin/Oramorph 15 mg (*)] 15 mg PO TID PRN 03/31/18 [Last Taken 03/31/18] - NPO status NPO Status: no food or drink >8 hours - Anes Hx Anes Hx: no prior problems - Smoking Hx Smoking Status: Current some day smoker - Alcohol Use Alcohol Use: Rarely - Family Anes Hx Family Anes Hx: none ANE Labs/Vital Signs - Labs Result Diagrams: 04/01/18 04:46 04/01/18 04:46 - Vital Signs Blood Pressure: 95/54 Heart Rate: 109 Respiratory Rate: 18 O2 Sat (%): 94 Height: 157.48 cm Weight: 90.718 kg ANE Physical Exam - Airway Neck exam: decreased ROM Mallampati Score: Class 2 Mouth exam: poor dentition - Pulmonary Pulmonary: expiratory wheeze, inspiratory crackles - Cardiovascular Cardiovascular: systolic murmur, tachycardia, edema - ASA Status ASA Status: IV ANE Anesthesia Plan Anesthesia Plan: GA w LMA (Proseal)
[2018-04-03] MEDS ORDERED: HYDROmorphONE/DILAUDID 2 MG/ML INJ ONE (10:28)
[2018-04-03] MEDS ORDERED: PHENYLEPHRINE HCL 100 MCG/ML SYR ONE (10:36)
[2018-04-03] MEDS ORDERED: PROPOFOL/EMULSION 500 MG/50 ML BOTTLE IV ONE (10:36)
[2018-04-03] MEDS ORDERED: ePHEDrine SULFATE 25 MG/5 ML SYR ONE (10:36)
[2018-04-03] MEDS ORDERED: GLYCOPYRROLATE 0.2 MG/1 ML VIAL ONE (10:37)
[2018-04-03] MEDS ORDERED: METOCLOPRAMIDE 10 MG/2 ML VIAL ONE (10:37)
[2018-04-03] MEDS ORDERED: GADOBUTROL 10 ML VIAL IVP ONE (11:24)
[2018-04-03] MEDS ORDERED: HYDROmorphONE/DILAUDID 2 MG/ML INJ IVP PRN (12:33)
[2018-04-03] MEDS ORDERED: ONDANSETRON 4 MG/2 ML VIAL IVP PRN (12:33)
[2018-04-03] MEDS ORDERED: NALOXONE HCL 0.4 MG/ML INJ IVP PRN (12:33)
--- NOTE | 2018-04-03 12:34 | POSTANESTH ---
Post Anesthetic Evaluation Cardiovascular Status: Similar to Pre-Op Cond Respiratory Status: Similar to Pre-op Cond. Level of Consciousness/Mental Status: Can Participate in Eval Pain Control: Adequate, Prn Tx Ordered Nausea/Vomiting Control: Adequate, Prn Tx Ordered Complications Possibly Related to Anesthesia: None Noted
[2018-04-03] MEDS: diphenhydrAMINE 25 MG CAP PO PRN ×2 (14:58→20:35)
--- NOTE | 2018-04-03 15:03 | SOAPPROG ---
SOAP Progress Note Assessment/Plan: Assessment: #Lumbar back pain MRI shows metastatic lesion at L2. Although she is on systemic chemo, she may benefit from a short course of XRT to L2. I put in a consult for radiation oncology, but the will need to be called on 05 APR 2018. -pain control per primary team #Locally advanced lung cancer Patient has received palliative XRT and first cycle of carboplatin paclitaxel . She has discussed moving to [place] recently for better [facility] services. I have spoken with case management and others to see about possibilities after hospitalization. She is due for her next chemotherapy in 2 weeks (on or about 18 APR 2018). Plan: Palliative XRT to L2 Chemo due 18 APR 2018 Pain management She will likely need to remain in house for her palliative XRT. I suspect that she will receive 5-10 fractions. Subjective: c/o pain in low back Objective: Vital Signs Temp Pulse Resp BP Pulse Ox 36.7 C 109 H 19 106/60 97 04/03/18 12:43 04/03/18 10:24 04/03/18 12:45 04/03/18 12:45 04/03/18 12:45 Laboratory Results 04/01/18 04:46 04/01/18 04:46 04/01/18 04/02/18 04/03/18 23:59 23:59 23:59 Intake Total 505 160 4061 Output Total 400 900 Balance 520 0 1424 PT 16.9 SEC (12.0-15.0) H 04/01/18 04:46 INR 1.36 (0.83-1.16) H 04/01/18 04:46 Physical Exam - Physical Exam General Appearance: moderate distress Respiratory: other (scattered ronchi) Cardiac/Chest: regular rate, rhythm Abdomen: normal bowel sounds Skin: warm/dry ICD10 Worksheet Patient Problems: Problems Problem Status Onset Chest pain Acute Adenocarcinoma of lung Acute Breast cancer Acute Cancer associated pain Acute Dehydration Acute Metastasis from breast cancer Acute Pulmonary embolism Acute
[2018-04-04] MEDS: HYDROmorphONE/DILAUDID 2 MG TAB PO PRN ×3 (00:15→21:28)
[2018-04-04] MEDS: LORazepam 2 MG/ML INJ IVP PRN ×2 (00:16→05:40)
[2018-04-04] MEDS: HYDROmorphone HCL 0.5 MG/0.5 ML SYR IVP PRN ×5 (02:15→19:04)
[2018-04-04] MEDS: diphenhydrAMINE 25 MG CAP PO PRN ×2 (02:15→15:35)
[2018-04-04] MEDS: POLYETHYLENE GLYCOL 3350 17 GM PKT PO PRN (05:42)
[2018-04-04] MEDS: SENNOSIDES/DOCUSATE SODIUM TAB PO SCH ×2 (08:11→21:21)
[2018-04-04] MEDS: morphINE SR 30 MG TAB PO SCH ×2 (08:11→21:22)
[2018-04-04] MEDS: MAGNESIUM HYDROXIDE 30 ML UDCUP PO PRN (08:11)
--- NOTE | 2018-04-04 12:27 | SOAPPROG ---
LAURA Progress Note Assessment/Plan: Assessment: #Lumbar back pain MRI shows metastatic lesion at L2. Although she is on systemic chemo, she may benefit from a short course of XRT to L2. I put in a consult for radiation oncology, but they will need to be called on 05 APR 2018. -pain control per primary team #Locally advanced lung cancer Patient has received palliative XRT and first cycle of carboplatin paclitaxel . She has discussed moving to [place] recently for better [facility] services. I have spoken with case management and others to see about possibilities after hospitalization. She is due for her next chemotherapy in 2 weeks (on or about 18 APR 2018). Plan: Palliative XRT to L2 Chemo due 18 APR 2018 Pain management She will likely need to remain in house for her palliative XRT. I suspect that she will receive 5-10 fractions. She voices no new complaints today. Subjective: No new complaints. Back still hurts Objective: Vital Signs Temp Pulse Resp BP Pulse Ox 36.9 C 114 H 16 104/52 L 96 04/04/18 12:00 04/04/18 12:00 04/04/18 12:00 04/04/18 12:00 04/04/18 12:00 Laboratory Results 04/01/18 04:46 04/01/18 04:46 04/02/18 04/03/18 04/04/18 23:59 23:59 23:59 Intake Total 900 1644 1000 Output Total 900 220 Balance 0 1644 780 PT 16.9 SEC (12.0-15.0) H 04/01/18 04:46 INR 1.36 (0.83-1.16) H 04/01/18 04:46 Physical Exam - Physical Exam General Appearance: mild distress Respiratory: lungs clear Cardiac/Chest: regular rate, rhythm Abdomen: normal bowel sounds, non-tender, soft Back: Other (tender over L2) Neuro/Psych: depressed affect ICD10 Worksheet Patient Problems: Problems Problem Status Onset Chest pain Acute Adenocarcinoma of lung Acute Breast cancer Acute Cancer associated pain Acute Dehydration Acute Metastasis from breast cancer Acute Pulmonary embolism Acute
--- NOTE | 2018-04-04 14:14 | HOSPPROG ---
Hospitalist Progress Note Assessment/Plan: 58 yo F with metastatic lung cancer presenting with pain 2/2 L2 pathologic fracture #Metastatic lung cancer: RUL artery chronically occluded, chest wall/ mediastinal invasion -first run of palliative chemo this past week as inpt. with carboplatin/ paclitaxel, will be due for next round approximately 04/18-Pain control improved with increased MS Contin to 30mg BID--continue to monitor and titrate as needed # L2 subacute pathologic fx: with plans for palliative radiation to begin likely in am #Acute abdominal pain: no acute findings on CT. LFTs, lipase and trops negative , overall improving though hard to tell given her generalized pain syndrome #Homelessness: Pt notes may move to [place] and requested her records be sent to [facility]. -CM involved #COPD: duonebs #Pulmonary embolism: Xarelto resumed #Tobacco dependence #h/o breast cancer #Dispo - cont inpt, CM involved in dispo planning as pt is homeless, PT/OT recommending SNF rehab, patient considering move out of state Patient new to my care. Old records reviewed and summarized as above. Care plan reviewed with oncology. Subjective: no significant overnight events, patient nots pain continues but otherwise she feels ok Objective: Vital Signs Temp Pulse Resp BP Pulse Ox 36.9 C 114 H 16 104/52 L 96 04/04/18 12:00 04/04/18 12:00 04/04/18 12:00 04/04/18 12:00 04/04/18 12:00 Laboratory Results 04/01/18 04:46 04/01/18 04:46 04/03/18 04/04/18 04/05/18 05:59 05:59 05:59 Intake Total 1624 1420 Output Total 700 220 Balance 924 1200 PT 16.9 SEC (12.0-15.0) H 04/01/18 04:46 INR 1.36 (0.83-1.16) H 04/01/18 04:46 disheveled awake alert anicteric op clear tachy regular no mrg cta b soft nt nd no cce warm dry well perfused oriented appropriate - Time Spent With Patient Time Spent with Patient: greater than 35 minutes Time Spent with Patient: Greater than 35 minutes spent on this patients care, greater than 50% of time spent counseling, educating, and coordinating care regarding the above mentioned plan. ICD10 Worksheet Patient Problems: Problems Problem Status Onset Breast cancer Acute Dehydration Acute Cancer associated pain Acute Pulmonary embolism Acute Chest pain Acute Adenocarcinoma of lung Acute Metastasis from breast cancer Acute
--- NOTE | 2018-04-04 15:20 | ASMTCMCOM ---
CM Note CM Note Notes: 04/04/2018 Case Management Note Discussed with RN. Per 04/04 Dr. Weller note pt will need to stay at [facility] for radiation treatment for lesion on L2 found on MRI. Radiation Oncology consult order. Cog eval pending to assess for decisional capacity. Marsha Arnold consult pending. [facility] Palliative provided phone number for Dr. Lanre Kitchen [phone] medical physics professor of [facility] to consult on pain management. Provided number to set up and charger for MD to call Dr. Kitchen directly if consult was still needed. Case Management d/c poc: to be determined. Case Management to follow. 04/02/2018 Case Management Note Spoke with Viviana at [facility] and received an e-mail from [facility]'s CUSTOMER COUNTER REPRESENTATIVE, Bharat Sneed. [facility] is considering patient for their inpatient hospice unit, however, there is currently a waiting list and no available beds. [facility] is willing to work with [facility] to brainstorm potential d/c solutions. I anticipate it will be difficult to place this patient in SNF - will continue to work with [facility] on the possibility of an inpatient hospice admission. Zena Clifton also involved and speaking with CUSTOMER COUNTER REPRESENTATIVE. Please call with questions. #[phone]. Plan: TBD. Potentially OPAL Inpatient Hospice Date Signed: 04/04/2018 03:19 PM Electronically Signed By:Marlee Villasenor RN
[2018-04-04] MEDS: RIVAROXABAN 15 MG TAB PO SCH (18:06)
[2018-04-05] MEDS: HYDROmorphone HCL 0.5 MG/0.5 ML SYR IVP PRN ×4 (02:14→22:02)
[2018-04-05] MEDS: HYDROmorphONE/DILAUDID 2 MG TAB PO PRN ×3 (04:07→20:46)
[2018-04-05] MEDS: morphINE SR 30 MG TAB PO SCH ×2 (09:29→20:46)
[2018-04-05] MEDS: diphenhydrAMINE 25 MG CAP PO PRN (09:29)
[2018-04-05] MEDS ORDERED: ALTEPLASE 2 MG VIAL IVP PRN (10:27)
[2018-04-05] MEDS: SENNOSIDES/DOCUSATE SODIUM TAB PO SCH ×2 (11:44→20:46)
[2018-04-05] MEDS: LORazepam 2 MG/ML INJ IVP PRN ×2 (11:52→17:58)
[2018-04-05] MEDS: VANCOMYCIN 125 MG/2.5 ML UDL PO SCH ×4 (11:52→20:46)
--- NOTE | 2018-04-05 13:27 | GCON ---
RADIATION ONCOLOGY CONSULTATION NOTE. CONSULTING SERVICE: Medical Oncology. REASON FOR CONSULTATION: Metastatic non-small cell lung cancer, role for palliative radiation. PATIENT IDENTIFICATION: The patient is a 58-year-old woman with likely stage IV metastatic non-small cell lung cancer, status post a course of palliative radiation to her right lung primary mass in January of 2018, followed by a recent cycle of carboplatin and paclitaxel under the care of Dr. Allen Weller as an inpatient in the hospital. She was recently admitted for acute on chronic chest wall and upper back pain and I am being consulted regarding the role of radiation for this pain. HISTORY OF PRESENT ILLNESS: I initially met the patient in consultation during an inpatient hospitalization at [facility] on January 18, 2018. Please see that note for full details of her presentation. Of note, the patient is a very poor historian in terms of her medical history as well as her current pain crisis. Back in January she was once again admitted for acute on chronic right back pain as well as some shortness of breath. A CT scan at that time showed a large mass in the right mid and upper lung measuring 12.8 cm. There was extension of that mass into the mediastinum between the trachea and the spine with compression upon the esophagus. There was narrowing of the bronchus as well and the SVC was mildly compressed. There was erosion of that mass into the right cortex of T3 and T4 as well as the right 3rd and 4th rib posteriorly. MRI of the brain was negative. Prior to the hospitalization, she did undergo EBUS and biopsy of that mass that came back as adenocarcinoma of the lung. On January 25, 2018, she completed a course of palliative short course radiation to her right lung and mediastinum. She received a dose of 20 Gy in 5 fractions using a 3D conformal technique. Of note, this course of radiation was very difficult to deliver to the patient because she was quite uncomfortable in our treatment position and lying flat down on our treatment table. She did require pre-radiation antianxiety medication to ease her anxiety and allow her to receive her treatment. On March 28, 2018, she received a single fraction of carboplatin and paclitaxel and was discharged on March 29, 2018. On March 31, she was admitted with acute on chronic back pain that was worse with certain movements and worse with cough. She described this pain as sharp in intensity, lasting for a few seconds and then going away, but happening multiple times throughout the day. She underwent a CT angio of her chest which showed persistent occlusion of the right upper lobe pulmonary artery by the patient's known malignancy with no visible pulmonary embolus. Stable right upper lobe mass with chest wall and mediastinal invasion and layton and possibly adrenal metastasis. Increased ground-glass opacities in the left lobe which could be related to airway disease /inflammation. Grossly stable indistinct right lower lobe nodule that could be related to metastasis or lymphangitic tumor spread. There is continued erosion of the medial right 3rd and 4th ribs and right T3 and T4 transverse process. She underwent an x-ray of her lumbar spine which showed a superior concavity to the L2 vertebral body with some adjacent horizontal curvilinear sclerosis. No new compressions are identified. This was consistent with a subacute healing compression fracture of L2. MRI of the lumbar spine was performed which showed diffuse abnormal signal intensity involving the L2 vertebral body. There is some contrast enhancement following gadolinium administration. There is an extraosseous extension of a contrast enhancing soft tissue tumor eccentrically toward the left side and displacing the left psoas muscle, presumably reflecting extraosseous extension of metastatic disease. There are degenerative changes noted elsewhere in the lumbar spine. INTERVAL HISTORY: Since being admitted to the hospital, the patient's pain has been predominantly with Dilaudid 2 mg by mouth every 4 hours as well as Dilaudid IV for breakthrough. She is requiring both of those as written. She is also on Ativan 1 mg IV every 4 hours. She is on morphine sulfate 30 mg p.o. twice daily. Also of note, she was diagnosed with C difficile and, therefore, is on C difficile precautions in the hospital. The patient reports some pain relief with the above-mentioned pain regimen. Multiple times throughout my meeting with her today she was requesting more pain medication and said that the nurse is not giving it to her. She reports pain relief from chemotherapy last week. She had a little bit of nausea and some energy loss, but otherwise no ill affects from the chemotherapy. She said the course of radiation helped minimally back in January, but she continues to have pain where I treated her before. Her breathing has been stable. No significant cough or hemoptysis, able to eat and swallow just fine. Maintaining her weight. PAST MEDICAL HISTORY: 1. Metastatic non-small cell lung cancer as detailed above. 2. History of left breast cancer surgery for triple negative breast cancer in 2001, status post radiation and chemotherapy. 3. COPD. 4. Pulmonary embolism. PAST SURGICAL HISTORY: Left breast cancer surgery as mentioned above. FAMILY HISTORY: No family history of cancer. SOCIAL HISTORY: She is a current daily tobacco user. She is currently homeless and is discussing possibly moving to [place] for better support services. HOSPITAL MEDICATIONS: 1. Albuterol. 2. Albuterol/ipratropium. 3. Alteplase. 4. Tessalon Perles. 5. Dulcolax. 6. Benadryl. 7. Dilaudid. 8. Lactulose. 9. Ativan. 10. Milk of Magnesia. 11. MS Contin. 12. Zofran. 13. MiraLAX. 14. Xarelto. 15. Senna. 16. Vancomycin. ALLERGIES: Sulfa, Tylenol, codeine. PHYSICAL EXAM: VITAL SIGNS: Blood pressure 102/63, pulse 111, oxygen sat 91%, respiratory rate 18, temperature 36.7. GENERAL: The patient is a moderately ill-appearing, overweight 58-year-old woman who is in no acute distress. Alert and oriented x3. CARDIOVASCULAR: Regular rate and rhythm. Normal S1, S2. No murmurs, rubs, or gallops. LUNGS: Clear to auscultation bilaterally. No wheezes, crackles, or rubs. MUSCULOSKELETAL: On palpation of the entire spinal column, she has most tenderness to palpation in the mid to upper thoracic vertebral bodies and some radiation of that pain to palpation along the ribs beneath the breast. She also localizes pain and has some tenderness to palpation along the sacral spine but nothing that correlates to the L2 vertebral body. NEUROLOGIC: Deferred given patient's condition. She is seen moving around in bed without obvious discomfort. IMAGING: Please see HPI above. PATHOLOGY: Lung adenocarcinoma. ASSESSMENT/PLAN: The patient is a 58-year-old woman with stage IV metastatic non-small cell lung cancer, status post palliative radiation to her right lung primary as well as a course of palliative radiation of carboplatin and paclitaxel last week while in the hospital. She presents today with acute on chronic pain, and I am seeing her today regarding the role of palliative radiation. I had a long discussion with the patient today in her hospital room regarding diagnosis and management of her stage IV lung adenocarcinoma. She seemed to do quite well with her last chemotherapy and reports that she did get a little bit of pain relief after that treatment. Otherwise, the majority of her pain is currently being managed with narcotic pain medications, and some antianxiety medication as well. We discussed the role and rationale for radiation in the stage IV lung cancer setting. The main goal would be to palliate some of her current pain and improve the quality of her life. I reviewed the patient's initial palliative radiation course with her in detail, and as mentioned above this was very difficult for her to complete as she had significant anxiety and discomfort while lying in our treatment position in the supine position. At this point, certainly palliative radiation could be an option to the L2 vertebral body. However, her pain to me is not correlating to that location today. As has been the case with the patient in the past, her pain is very difficult to localize, and what she is describing now seems to be fitting more with the locally advanced right upper lung tumor that is getting into her thoracic vertebral body and this area has already been treated. She is reporting some radicular pain along her bilateral ribcage right underneath her breast, and to me this does not correlate with an L2 vertebral body metastasis. At this point, she does not have any signs of radiographic cord or canal compromise, and clinically I would support that as well as she has full continence of her bowel and bladder and minimal lower extremity weakness. At this point, I would not recommend palliative radiation and would certainly focus on optimizing her narcotic and antianxiety pain medication, as well as focus on delivering the 2nd cycle of chemotherapy which did relieve some of her pain. Certainly, radiation could be an option in the future, but once again she had a very difficult course initially and it was challenging getting her in a comfortable position for radiation. I am happy to see her at any point as an outpatient, and certainly please call me with any questions or concerns regarding the patient's care. /[id number]/MODL MTDD
[2018-04-05] MEDS: LORazepam 0.5 MG TAB PO PRN ×2 (15:03→20:46)
--- NOTE | 2018-04-05 15:07 | SOAPPROG ---
SOAP Progress Note Assessment/Plan: Assessment: Caitlyn is a 58-year-old female with history metastatic non-small cell lung cancer as per below. 1. Metastatic non-small cell lung cancer: She has no targetable bbiomarkers. She received carbo/Taxol with today being day 10. She has had some improvement in her pain with carbo Taxol. 2. Cancer related pain: She has received palliative radiation to her primary with minimal improvement. She currently is receiving MS Contin alongside Dilaudid by mouth and IV as needed. Radiation/oncology is also seeing her today to see if she would benefit from any palliative radiation. 3. C diff colitis: She is on oral vancomycin 04/05/18 15:05 Subjective: Caitlyn reports feeling well today. Her pain is under better control. There are no acute events overnight. Objective: Vital Signs Temp Pulse Resp BP Pulse Ox 37.1 C 106 H 16 98/52 L 96 04/05/18 12:00 04/05/18 12:00 04/05/18 12:00 04/05/18 12:00 04/05/18 12:00 Microbiology 04/04/18 19:06 Gastrointestinal Tract Panel (PCR) - Final Stool Clostridium Difficile Detected Laboratory Results 04/01/18 04:46 04/01/18 04:46 04/04/18 04/05/18 04/06/18 05:59 05:59 05:59 Intake Total 1420 300 Output Total 220 Balance 1200 300 PT 16.9 SEC (12.0-15.0) H 04/01/18 04:46 INR 1.36 (0.83-1.16) H 04/01/18 04:46 Physical examination General: Pleasant female appears in no acute distress conversant HEENT opiates clear extraocular movements are intact Abdomen: Soft nontender nondistended bowel sounds are present Cardiovascular: Regular rhythm no murmurs gallops or rubs Pulm: CTAB Ext: Bl 1+ edema ICD10 Worksheet Patient Problems: Problems Problem Status Onset Chest pain Acute Adenocarcinoma of lung Acute Breast cancer Acute Cancer associated pain Acute Dehydration Acute Metastasis from breast cancer Acute Pulmonary embolism Acute
--- NOTE | 2018-04-05 16:15 | HOSPPROG ---
Hospitalist Progress Note Assessment/Plan: 58 yo F with metastatic lung cancer presenting with pain 2/2 L2 pathologic fracture #Metastatic lung cancer: RUL artery chronically occluded, chest wall/ mediastinal invasion -first run of palliative chemo this past week as inpt. with carboplatin/ paclitaxel, will be due for next round approximately 04/18-Pain control improved with increased MS Contin to 30mg BID--continue to monitor and titrate as needed # L2 subacute pathologic fx: may need palliative radiation but this is being determined by oncology #Acute abdominal pain: seems largely resolved, no acute findings on CT. LFTs, lipase and trops negative #Homelessness: Pt notes may move to [place] and requested her records be sent to [facility]. -CM involved #COPD: duonebs #Pulmonary embolism: Xarelto resumed #Tobacco dependence #h/o breast cancer #Dispo - cont inpt, CM involved in dispo planning as pt is homeless, PT/OT recommending SNF rehab, patient considering move out of state Care plan reviewed with oncology. Subjective: patient a bit confused, agitated this morning, pain remains inadequately controlled Objective: Vital Signs Temp Pulse Resp BP Pulse Ox 37.1 C 106 H 16 98/52 L 96 04/05/18 12:00 04/05/18 12:00 04/05/18 12:00 04/05/18 12:00 04/05/18 12:00 Microbiology 04/04/18 19:06 Gastrointestinal Tract Panel (PCR) - Final Stool Clostridium Difficile Detected Laboratory Results 04/01/18 04:46 04/01/18 04:46 04/04/18 04/05/18 04/06/18 05:59 05:59 05:59 Intake Total 1420 300 Output Total 220 Balance 1200 300 PT 16.9 SEC (12.0-15.0) H 04/01/18 04:46 INR 1.36 (0.83-1.16) H 04/01/18 04:46 disheveled awake alert anicteric op clear tachy regular no mrg cta b soft nt nd no cce warm dry well perfused oriented appropriate ICD10 Worksheet Patient Problems: Problems Problem Status Onset Breast cancer Acute Dehydration Acute Cancer associated pain Acute Pulmonary embolism Acute Chest pain Acute Adenocarcinoma of lung Acute Metastasis from breast cancer Acute
[2018-04-05] MEDS: RIVAROXABAN 15 MG TAB PO SCH (18:50)
[2018-04-06] MEDS: RIVAROXABAN 15 MG TAB PO SCH (00:37)
[2018-04-06] MEDS: HYDROmorphONE/DILAUDID 2 MG TAB PO PRN ×2 (03:09→12:40)
[2018-04-06] MEDS: VANCOMYCIN 125 MG/2.5 ML UDL PO SCH ×4 (04:43→20:50)
[2018-04-06] MEDS: LORazepam 0.5 MG TAB PO PRN ×4 (04:48→17:35)
[2018-04-06] MEDS: SENNOSIDES/DOCUSATE SODIUM TAB PO SCH ×2 (08:44→20:50)
[2018-04-06] MEDS: morphINE SR 15 MG TAB PO SCH ×2 (08:44→20:50)
--- NOTE | 2018-04-06 09:18 | HOSPPROG ---
Hospitalist Progress Note Assessment/Plan: #Metastatic lung cancer: RUL artery chronically occluded, chest wall/ mediastinal invasion -first run of palliative chemo this past week as inpt. with carboplatin/ paclitaxel, will be due for next round approximately 04/18 # L2 subacute pathologic fx: evaluated for palliative radiation, but deemed not a good candidate now -MS Robertson, LC adams #Cognitive impairment: MOCA was 02/08 indicating severe impairment. Will repeat to ensure not related to meds, other factors. But if same, she is not in state to make medically-related decisions. Will need med-proxy #Acute abdominal pain: positive C diff #Acute C diff: PO Vanc #Homelessness: Pt notes may move to [place] and requested her records be sent to [facility] [place]. -CM involved #COPD: duonebs #Pulmonary embolism: Xarelto resumed #Tobacco dependence #h/o breast cancer #Disp: unclear. CM is assisting. Patient is very unclear about where she wants to go. Subjective: wants to get in wheelchair. Having formed stools Objective: Vital Signs Temp Pulse Resp BP Pulse Ox 37.3 C 112 H 16 97/65 L 93 04/06/18 07:18 04/06/18 07:18 04/06/18 07:18 04/06/18 07:18 04/06/18 07:18 Microbiology 04/04/18 19:06 Gastrointestinal Tract Panel (PCR) - Final Stool Clostridium Difficile Detected Laboratory Results 04/01/18 04:46 04/01/18 04:46 04/05/18 04/06/18 04/07/18 05:59 05:59 05:59 Intake Total 300 1300 Output Total 400 Balance 300 900 PT 16.9 SEC (12.0-15.0) H 04/01/18 04:46 INR 1.36 (0.83-1.16) H 04/01/18 04:46 - Time Spent With Patient Time Spent with Patient: greater than 35 minutes Time Spent with Patient: Greater than 35 minutes spent on this patients care, greater than 50% of time spent counseling, educating, and coordinating care regarding the above mentioned plan. - Physical Exam Constitutional: unkempt Eyes: PERRL Ears, Nose, Mouth, Throat: moist mucous membranes Cardiovascular: regular rate and rhythym Respiratory: reduced air movement Gastrointestinal: normoactive bowel sounds Genitourinary: no bladder fullness Musculoskeletal: other (moving all 4 extremities) Psychiatric: encephalopathic, poor insight, poor judgement, other (tangential) ICD10 Worksheet Patient Problems: Problems Problem Status Onset Chest pain Acute Adenocarcinoma of lung Acute Breast cancer Acute Cancer associated pain Acute Dehydration Acute Metastasis from breast cancer Acute Pulmonary embolism Acute
[2018-04-06] MEDS: KETOROLAC 15 MG/1 ML SDV IVP PRN ×2 (10:57→17:35)
[2018-04-06] MEDS: RIVAROXABAN 20 MG TAB PO SCH ×2 (12:40→17:35)
--- NOTE | 2018-04-06 13:33 | SOAPPROG ---
SOAP Progress Note Assessment/Plan: Assessment: Caitlyn is a 58-year-old female with history metastatic non-small cell lung cancer as per below. 1. Metastatic non-small cell lung cancer: She has no targetable bbiomarkers. She received carbo/Taxol with today being day 11. She has had some improvement in her pain with carbo Taxol. The major issue currently is disposition planning. Will touch base with social work nurse. 2. Cancer related pain: She has received palliative radiation to her primary with minimal improvement. She currently is receiving MS Contin alongside Dilaudid by mouth and IV as needed. Radiation/oncology did not feel that radiation to the L2 was warranted. 3. C diff colitis: She is on oral vancomycin 04/06/18 13:32 Subjective: No acute events overnight. No loose bowel movements. Pain is well controlled. Objective: Vital Signs Temp Pulse Resp BP Pulse Ox 36.8 C 109 H 16 115/70 94 04/06/18 11:30 04/06/18 11:30 04/06/18 11:30 04/06/18 11:30 04/06/18 11:30 Microbiology 04/04/18 19:06 Gastrointestinal Tract Panel (PCR) - Final Stool Clostridium Difficile Detected Laboratory Results 04/01/18 04:46 04/01/18 04:46 04/05/18 04/06/18 04/07/18 05:59 05:59 05:59 Intake Total 300 1300 Output Total 400 Balance 300 900 PT 16.9 SEC (12.0-15.0) H 04/01/18 04:46 INR 1.36 (0.83-1.16) H 04/01/18 04:46 General: Pleasant-appearing female in no acute distress lying comfortably in bed. HEENT: Opiates clear extraocular movements are intact GI: Soft nontender nondistended bowel sounds are present Cardiovascular: Regular rate and rhythm Skin: No skin lesions Pulmonary: Clear to auscultation Extremities: 1+ bilateral edema equal ICD10 Worksheet Patient Problems: Problems Problem Status Onset Chest pain Acute Adenocarcinoma of lung Acute Breast cancer Acute Cancer associated pain Acute Dehydration Acute Metastasis from breast cancer Acute Pulmonary embolism Acute
--- NOTE | 2018-04-06 15:06 | ASMTCMCOM ---
CM Note CM Note Notes: Chart reviewed and plan of care discussed in interdisciplinary rounds. She has complex medical needs with pain control issues. She is homeless and is reluctant to answer some questions. She asked that I see her tomorrow. No definitive discharge plan yet. CM to follow. Plan: TBD Date Signed: 04/06/2018 03:05 PM Electronically Signed By:Dottie Mason RN
--- NOTE | 2018-04-06 15:09 | ASMTCMCOM ---
CM Note CM Note Notes: Spoke with [facility] and they have no option for inpatient hospice at the present time. They will ask their Dr Tai to come see her hopefully . CM to follow, Date Signed: 04/06/2018 03:09 PM Electronically Signed By:Dottie Mason RN
[2018-04-07] MEDS: HYDROmorphONE/DILAUDID 2 MG TAB PO PRN ×2 (01:59→08:12)
[2018-04-07] MEDS: LORazepam 0.5 MG TAB PO PRN ×3 (02:03→10:24)
[2018-04-07] MEDS: VANCOMYCIN 125 MG/2.5 ML UDL PO SCH ×2 (04:49→15:42)
[2018-04-07 07:20] VITALS: BP 108/64
[2018-04-07] MEDS: SENNOSIDES/DOCUSATE SODIUM TAB PO SCH (08:12)
[2018-04-07] MEDS: morphINE SR 15 MG TAB PO SCH (08:13)
[2018-04-07] MEDS: KETOROLAC 15 MG/1 ML SDV IVP PRN (08:50)
[2018-04-07] MEDS ORDERED: HYDROmorphONE/DILAUDID 2 MG TAB PO PRN (09:13)
--- NOTE | 2018-04-07 09:26 | HOSPPROG ---
Hospitalist Progress Note Assessment/Plan: #Metastatic lung cancer: RUL artery chronically occluded, chest wall/ mediastinal invasion -first run of palliative chemo this past week as inpt. with carboplatin/ paclitaxel, will be due for next round approximately 04/18 # L2 subacute pathologic fx: evaluated for palliative radiation, but deemed not a good candidate now -MS Robertson, LC adams #Cognitive impairment: MOCA was 02/08 indicating severe impairment. Will repeat to ensure not related to meds, other factors. But if same, she is not in state to make medically-related decisions. -she is at grave risk for subsequent harm if leaves AMA. She does not have medical decisional capacity based on my interview. She cannot explain the benefits of treatment or the risks if she leaves the hospital. Will call security if tries to leave AMA; will be placed on medical incapacity holf #Acute abdominal pain: positive C diff #Acute C diff: PO Vanc #Homelessness: Pt notes may move to [place] and requested her records be sent to [facility]. -CM involved #COPD: duonebs #Pulmonary embolism: Xarelto resumed #Tobacco dependence #h/o breast cancer #Disp: left AMA, Power Mcnamara (med-proxy) signed Additional time spent: 60 min spent on direct care. Speaking with boyfriend on phone for med-proxy, working with discharge door operator, CM, and security for patient safety. 4:30pm-5:30pm Subjective: "I want this line out of me" Wants to leave with her partner Objective: Vital Signs Temp Pulse Resp BP Pulse Ox 36.7 C 105 H 14 108/64 93 04/07/18 07:19 04/07/18 07:19 04/07/18 07:19 04/07/18 07:19 04/07/18 07:19 Laboratory Results 04/01/18 04:46 04/01/18 04:46 04/06/18 04/07/18 04/08/18 05:59 05:59 05:59 Intake Total 1300 650 Output Total 400 200 Balance 900 450 PT 16.9 SEC (12.0-15.0) H 04/01/18 04:46 INR 1.36 (0.83-1.16) H 04/01/18 04:46 - Time Spent With Patient Time Spent with Patient: greater than 35 minutes Time Spent with Patient: Greater than 35 minutes spent on this patients care, greater than 50% of time spent counseling, educating, and coordinating care regarding the above mentioned plan. - Physical Exam Constitutional: other (agitated) Eyes: PERRL Ears, Nose, Mouth, Throat: moist mucous membranes Cardiovascular: regular rate and rhythym Respiratory: reduced air movement Gastrointestinal: normoactive bowel sounds Genitourinary: no bladder fullness Psychiatric: encephalopathic, poor insight, poor judgement, poor memory ICD10 Worksheet Patient Problems: Problems Problem Status Onset Adenocarcinoma of lung Acute Breast cancer Acute Cancer associated pain Acute Chest pain Acute Dehydration Acute Metastasis from breast cancer Acute Pulmonary embolism Acute
[2018-04-07] MEDS ORDERED: LORazepam 1 MG TAB PO ONE (11:45)
[2018-04-07] MEDS ORDERED: morphINE SR 15 MG TAB PO SCH (16:00)
--- NOTE | 2018-04-07 16:31 | ASMTCMCOM ---
CM Note CM Note Notes: Discussed case in Complex Care rounds this afternoon. This case continues to be challenging Referral has been made to [facility] for further support around disposition plan. Alma will connect with patient. Perhaps CM could explore the possibility of LTC placement with hospice? A facility such as [facility] may consider. Dr. Tai with [facility] will be on site on Thursday to weigh in on case. If patieint is accepted to hospice, could also potentially work with the [facility]. A Proxy decision maker is probably the next best step as we move forward on this case. Will continue to follow. Date Signed: 04/07/2018 04:30 PM Electronically Signed By:Chelle Estrada RN
--- NOTE | 2018-04-07 17:04 | ASMTCMCOM ---
CM Note CM Note Notes: Patient plan of care reviewed in rounds. She is adamant that she wants her IV removed and that she be able to discharge. She has a a cognitive evaluation and it is felt she does not have descisional capacity. She ultimately left her room. She left hospital grounds. She later returned. We are attempting to secure a proxy to help with her plan of care. CM to follow. Plan: TBD Date Signed: 04/07/2018 05:04 PM Electronically Signed By:Dottie Mason RN
--- NOTE | 2018-04-07 17:19 | ASMTCMCOM ---
CM Note CM Note Notes: Dr. Berkowitz attempted to reach out to "Eduardo" Power Anders her S.O to sign proxy from to take responsibility of patients care given her decisional status,. He stated he would talk to her when he got here. Numerous staff members attempted to speak with the patient to attempt to get her to return for care offering food and comfort measures which she declined.. The Unit Co-ordinator went out to the main area and found the patient climbing into the truck with Eduardo. She asked if he was coming in and he declined. He signed the AMA form but refused signing the proxy. They departed from the premises. Essentially AMA. Date Signed: 04/07/2018 05:19 PM Electronically Signed By:Dottie Mason RN
--- NOTE | 2018-04-07 17:20 | ASMTLACE ---
LACE Length of stay for Answers: 7-13 days current admission Acuity / Level of Answers: Yes Care: Did the patient have an inpatient admission? Comorbidities - select Answers: Any tumor (including all that apply lymphoma or leukemia) Opioid dependence / Chronic pain Other Notes: Hx of PE; Asthma # of Emergency department Answers: 3-4 visits in the last 6 months Score: 18 Date Signed: 04/07/2018 05:20 PM Electronically Signed By:Dottie Mason RN
--- NOTE | 2018-04-07 18:20 | GDS ---
DISCHARGE DIAGNOSES: 1. Metastatic non-small cell lung carcinoma. 2. L2 subacute pathologic fracture. 3. Cognitive impairment with a MOCA of 02/08. 4. Acute abdominal pain/chest pain. 5. Acute Clostridium difficile infection. 6. Homelessness. 7. Chronic obstructive pulmonary disease. 8. Pulmonary embolism. 9. Tobacco disorder. 10. History of breast cancer. 11. Likely PTSD 12. Cognitive impairment CONSULTATIONS: 1. Oncology. 2. Marsha Arnold with mental health. 3. Radiation Oncology. HISTORY OF PRESENT ILLNESS: A 58-year-old female with locally advanced non- small cell lung cancer, recently admitted 03/28, in which she was started on palliative chemotherapy with carboplatin and paclitaxel. She re-presented on the with acute abdominal and lumbar back pain. Says the back pain is new, cannot move her feet or her legs. Denies bowel or bladder incontinence. Of note, she is a poor historian and states pain travels from chest to back down to legs. HOSPITAL COURSE BY PROBLEM: 1. Metastatic non-small cell lung cancer: She received carbo/Taxol x1. She had some improvement in her chest wall pain. Plan for repeat 04/18, if clinically stable. 2. Malignancy-related pain: was taking MS Contin 15 mg t.i.d. prior to admission, but pain was uncontrolled. This was increased to 30 mg b.i.d., but in the combination of benzos and Benadryl, became confused, thus dose was decreased. I think it is reasonable to resume TID. dosing. 3. L2 subacute pathologic fracture: evaluated by Rad/Onc, but deemed not a good candidate now based on symptoms. Encouraged pain management. 4. Acute C diff infection. Continue p.o. vancomycin for a total of 10 days. 5. Homelessness. Currently, has been living with her partner in a car versus with some friends. Her story changes depending on the time of interview. 6. Chronic obstructive pulmonary disease. No evidence of exacerbation. 7. History of pulmonary embolism. Was only on 15 mg of Xarelto. This should be at 20, which was adjusted here in the hospital. 8. Tobacco dependence. Counseled on cessation. 9. History of breast cancer. 10. Cognitive impairment: she is at grave risk for medical safety given her cognitive impairment. MOCA was performed last week 02/08, indicating severe impairment. Perhaps this is due to medications, but patient declined repeat here this week. Marsha Arnold also evaluated patient, but was not able to perform a full psychiatric evaluation, but does indicate a history of PTSD that makes evaluation/treatment difficult. Based on my interview today, she does not have medical decisional capacity. She cannot explain the benefits, the treatments, or the risks if she leaves the hospital without treatment for her cancer, current C diff infection, and pain control. She left hospital property across [place] and security could not be in contact since considered discharged. Her partner of many years, Power Mcnamara, was designated her med-proxy after I spoke with him over phone. He signed her out AMA. The concern is that does not have safe discharge plan. Her story varied, but says she is going to [place] for a second opinion. She will likely return to the hospital with uncontrolled symptoms. Case management and charge nurse were involved in this process and discussions. Disposition: Patient left AMA. Her med proxy signed her out. MEDICATIONS: Was going to provide a script for vancomycin, MS Contin, but the patient left before I could give this to them. FOLLOW UP: 1. Oncology. 2. Social Work will call patient for welfare assessment. Time spent on discharge: Greater than 45 minutes trying to coordinate a safe discharge plan with Case Management, nursing staff, and charge nurse. /[id number]/MODL MTDD
--- NOTE | 2018-04-08 08:44 | ASDISCHSUM ---
Discharge Information Plan Status: Medically Cleared to Leave: Discharge Date:04/07/2018 05:10 PM D/C Disposition:Against Medical Advice ADT D/C Disposition:Home, Routine, Self-Care Projected Discharge Date:04/02/2018 11:00 AM Transportation at D/C:Family Discharge Delay Reason: Follow-Up Date:04/02/2018 11:00 AM Discharge Slot: Final Diagnosis: Placement Information Referral Type:*Hospice Referral ID:[id number] Provider Name: Address 1: Phone Number: Address 2: Fax Number: City: Selection Factors: State: Referral Type:Palliative Care Referral ID:[id number] Provider Name: Address 1: Phone Number: Address 2: Fax Number: City: Selection Factors: State: Patient Contact Information Contact Name:LEXII Relationship:Other [address] Work Phone: [facility]:[place] Alternate Phone: [facility] Code:[place] [address] Email: Financial Information Financial Class:Medicaid Primary Plan Desc[place] Primary Plan Number:[id number] Secondary Plan Desc: Secondary Plan Number: Assessment Information LACE LACE Length of stay for Answers: 7-13 days current admission Acuity / Level of Answers: Yes Care: Did the patient have an inpatient admission? Comorbidities - select Answers: Any tumor (including all that apply lymphoma or leukemia) Opioid dependence / Chronic pain Other Notes: Hx of PE; Asthma # of Emergency department Answers: 3-4 visits in the last 6 months Score: 18 Date Signed: 04/07/2018 05:20 PM Electronically Signed By:Dottie Mason RN [facility] CM Progress Note CM Note CM Note Notes: Pt has been admitted with abdominal pain. She has a dx of metastatic lung CA, breast CA, COPD, pulmonary embolism. She has started chemo recently. She was discharged just 2 days ago from [facility]. She is homeless although lives with friends in [place] and/or out of her partner's car at times. Palliative care consult requested as well as IR for a possible plexus nerve block. Received call from Sally Schilling at [facility] [phone] who said she applied for a [email or web address] mily on hehalf of the pt and the check may come here due to pt not having a firm address to send it to. She has been to [facility] in January but left AMA and they will not take her back. PT/OT evals have been ordered and pending. A request for an evaluation for possible transfer to the [facility] inpatient unit for symptom management has been initiated. Date Signed: 04/01/2018 04:31 PM Electronically Signed By:LES Rubio [facility] CM Progress Note CM Note CM Note Notes: Shirley from [facility] called; they have declined Pt due to have a waiting list and not having the resources to develop a safe d/c plan for a pt that is homeless. She will call if this changes in the future. CM to follow. D/C Plan: TBD Date Signed: 04/02/2018 10:35 AM Electronically Signed By:Carol Gomez [facility] CM Progress Note CM Note CM Note Notes: Spoke with Viviana at [facility] and received an e-mail from [facility]'s ATTENDING ANESTHESIOLOGIST, Bharat Sneed. [facility] is considering patient for their inpatient hospice unit, however, there is currently a waiting list and no available beds. [facility] is willing to work with [facility] to brainstorm potential d/c solutions. I anticipate it will be difficult to place this patient in SNF - will continue to work with [facility] on the possibility of an inpatient hospice admission. Zena Clifton also involved and speaking with ATTENDING ANESTHESIOLOGIST. Please call with questions. #[phone]. Plan: TBD. Potentially [facility] In[facility]ice Date Signed: 04/02/2018 03:54 PM Electronically Signed By:Chelle Estrdaa RN [facility] CM Progress Note CM Note CM Note Notes: 04/04/2018 Case Management Note Discussed with RN. Per 04/04 Dr. Weller note pt will need to stay at [facility] for radiation treatment for lesion on L2 found on MRI. Radiation Oncology consult order. [facility] [place] to assess for decisional capacity. Marsha Arnold consult pending. [facility] Palliative provided phone number for Dr. Lanre Kitchen [phone] medical reviewer of [facility] to consult on pain management. Provided number to charge hand for MD to call Dr. Kitchen directly if consult was still needed. Case Management d/c poc: to be determined. Case Management to follow. 04/02/2018 Case Management Note Spoke with Viviana at [facility] and received an e-mail from [facility]'s ATTENDING ANESTHESIOLOGIST, Bharat Sneed. [facility] is considering patient for their inpatient hospice unit, however, there is currently a waiting list and no available beds. [facility] is willing to work with [facility] to brainstorm potential d/c solutions. I anticipate it will be difficult to place this patient in SNF - will continue to work with [facility] on the possibility of an inpatient hospice admission. Zena Clifton also involved and speaking with ATTENDING ANESTHESIOLOGIST. Please call with questions. #[phone]. Plan: TBD. [facility]entially [facility] Date Signed: 04/04/2018 03:19 PM Electronically Signed By:Marlee Villasenor RN [facility] CM Progress Note CM Note CM Note Notes: Chart reviewed and plan of care discussed in interdisciplinary rounds. She has complex medical needs with pain control issues. She is homeless and is reluctant to answer some questions. She asked that I see her tomorrow. No definitive discharge plan yet. CM to follow. Plan: TBD Date Signed: 04/06/2018 03:05 PM Electronically Signed By:Dottie Mason RN [facility] CM Progress Note CM Note CM Note Notes: Spoke with [facility] and they have no option for inpatient hospice at the present time. They will ask their Dr Tai to come see her hopefully . CM to follow, Date Signed: 04/06/2018 03:09 PM Electronically Signed By:Dottie Mason RN [facility] CM Progress Note CM Note CM Note Notes: Discussed case in Complex Care rounds this afternoon. This case continues to be challenging Referral has been made to [facility] for further support around disposition plan. Alma will connect with patient. Perhaps CM could explore the possibility of LTC placement with hospice? A facility such as [facility] may consider. Dr. Tai with [facility] will be on site on Thursday to weigh in on case. If patieint is accepted to hospice, could also potentially work with the [facility]. A Proxy decision maker is probably the next best step as we move forward on this case. Will continue to follow. Date Signed: 04/07/2018 04:30 PM Electronically Signed By:Chelle Estrada RN [facility] Progress Note CM Note CM Note Notes: Patient plan of care reviewed in rounds. She is adamant that she wants her IV removed and that she be able to discharge. She has a a cognitive evaluation and it is felt she does not have descisional capacity. She ultimately left her room. She left hospital grounds. She later returned. We are attempting to secure a proxy to help with her plan of care. CM to follow. Plan: TBD Date Signed: 04/07/2018 05:04 PM Electronically Signed By:Dottie Mason RN [facility] Progress Note CM Note CM Note Notes: Dr. Berkowitz attempted to reach out to "Eduardo" Power Anders her S.O to sign proxy from to take responsibility of patients care given her decisional status,. He stated he would talk to her when he got here. Numerous staff members attempted to speak with the patient to attempt to get her to return for care offering food and comfort measures which she declined.. The Unit Co-ordinator went out to the main area and found the patient climbing into the truck with Eduardo. She asked if he was coming in and he declined. He signed the AMA form but refused signing the proxy. They departed from the premises. Essentially AMA. Date Signed: 04/07/2018 05:19 PM Electronically Signed By:Dottie Mason RN Intervention Information
== END 2018-04-07 17:10 | disposition home or self-care (01) | DRG 861 ==
LOC: F1N 16:05
PROVIDERS: ADMIT Internal Medicine; ATTEND Internal Medicine
PROC: 02HW33Z Insertion of Infusion Device into Thoracic Aorta, Descending, Percutaneous Approach (ICD-10-PCS; principal; 2018-04-05)
DX: G89.3 Neoplasm related pain (acute) (chronic) (principal); I26.99 Other pulmonary embolism without acute cor pulmonale; M84.48XA Pathological fracture, other site, initial encounter for fracture; C34.90 Malignant neoplasm of unspecified part of unspecified bronchus or lung; G31.84 Mild cognitive impairment of uncertain or unknown etiology; J44.9 Chronic obstructive pulmonary disease, unspecified; F17.200 Nicotine dependence, unspecified, uncomplicated; F43.10 Post-traumatic stress disorder, unspecified; Z59.0 Homelessness; Z85.3 Personal history of malignant neoplasm of breast; Z23 Encounter for immunization; T45.516A Underdosing of anticoagulants, initial encounter; A04.72 Enterocolitis due to Clostridium difficile, not specified as recurrent
CPT/HCPCS: 82435-PO; 82565-PO; 82947-PO; 84132-PO; 84295-PO; 84484-PO; 84520-PO; 85014-PO; 92507-GN; 92523-GN; 96374; 97161-GP; 97166-GO; 97530-GP; 97535-GO; A9585; C1751; G0008; J0330; J1170; J1885; J2060; J2370; J2405; J2704; J2765; J3301; Q9967

== ENCOUNTER 2018-04-14 13:21 | Inpatient (IN) | payer MEDICAID ==
[2018-04-14 14:44] LABS: PLATELET COUNT 343 10^3/uL (150-400)
--- NOTE | 2018-04-14 14:50 | EDPHY ---
H & P Time Seen by Provider: 04/14/18 14:48 HPI/ROS: CHIEF COMPLAINT: Can't breathe and severe back pain HISTORY OF PRESENT ILLNESS: Patient is a history of cancer with lung involvement as well as an L2 fracture. She apparently signed out against medical advice at the end of March him presents today with severe symptoms including shortness of breath and worsening back pain. She has been taking Tylenol and Advil med isn't working this shortness of breath is severe. She has remote history of pulmonary embolism but apparently tells me she was evaluated during her previous hospitalization does not have an acute lung clot. She says she is unable to manage as an outpatient, she has continued to get chemotherapy. REVIEW OF SYSTEMS: Eye: no change in vision ENT: no sore throat Cardiac: Sharp pinching right-sided chest pain with deep breath which continues Pulmonary: Has a cough, short of breath Abdomen: Continues to have diarrhea her previously diagnosed C diff, is a little bit better, intermittent abdominal cramping, she was prescribed medication to treated on discharge but has not taken it. Musculoskeletal: continued L2 back pain which the patient says is severe Skin: no rash Neuro: no headache Constitutional: no fever : no urinary symptoms A comprehensive 10 point review of systems is otherwise negative aside from elements mentioned in the history of present illness. PAST MEDICAL HISTORY: Discharge summary dated 04/07/2018 personally reviewed includes metastatic lung cancer, L2 fracture, Clostridium difficile infection, COPD, pulmonary embolism, breast cancer, PTSD. Social history: Patient has a apartment for the last couple of weeks, previously homeless, tobacco General Appearance: Alert and conversant, cooperative. Eyes: No scleral icterus. ENT, Mouth: Normal mucous membranes. Respiratory: Decreased breath sounds bilaterally. Cardiovascular: Regular rate and rhythm. Gastrointestinal: Abdomen is soft and non tender. Neurological: Alert, face symmetric, normal motor and sensory in extremities. Skin: Warm and dry, no rashes. Musculoskeletal: Bilateral peripheral edema. Psychiatric: Not agitated. Emergency Department course/MDM: Discussed with Vicenta Jimenez. Plan for admission for symptom control, consider repeat palliative care consultation. Dilaudid 0.5 mg IV. Patient CTA of her chest on 03/31/2018 which showed persistent occlusion of her upper lobe on the right side by cancer, no pulmonary embolism. Smoking Status: Current some day smoker Constitutional: Initial Vital Signs Temperature (C) 36.9 C 04/14/18 13:28 Heart Rate 92 04/14/18 13:28 Respiratory Rate 18 04/14/18 13:28 Blood Pressure 129/86 H 04/14/18 13:28 O2 Sat (%) 97 04/14/18 13:28 O2 Delivery Mode Room Air O2 (L/minute) 2 Allergies/Adverse Reactions: Sulfa (Sulfonamide Antibiotics) Allergy (Intermediate, Verified 04/14/18 13:26) rash/swelling acetaminophen [From Vicodin] Allergy (Mild, Verified 04/14/18 13:26) Rash codeine Allergy (Mild, Verified 04/14/18 13:26) Rash hydrocodone [From Vicodin] Allergy (Mild, Verified 04/14/18 13:26) Rash NSAIDS (Non-Steroidal Anti-Inflamma Allergy (Mild, Verified 04/14/18 13:26) GI upset Penicillins Allergy (Mild, Verified 04/14/18 13:26) Rash fentanyl Allergy (Verified 04/14/18 13:26) sugar substitutes Allergy (Intermediate, Uncoded 01/22/18 11:27) Swelling/neck,face,throat Home Medications: Medication Instructions Recorded Albuterol [Proventil Inhaler HFA 2 puffs IH BID PRN 01/16/18 (*)] Ibuprofen [Motrin (*)] 200 - 400 mg PO Q6H PRN 04/14/18 Medical Decision Making - Diagnostics EKG Interpretation: 12-lead EKG interpreted by me; official reading is in computer system. My interpretation is sinus rhythm with right bundle branch block. Imaging Results: Imaging Impressions Chest X-Ray 04/14/18 14:47 Impression: Little if any change x2 weeks. - Data Points Laboratory Results: Laboratory Results 04/14/18 14:30 04/14/18 14:30 04/14/18 04/14/18 04/14/18 14:31 14:30 14:30 WBC RBC Hgb Hct MCV MCH MCHC RDW Plt Count MPV Neut % (Auto) Lymph % (Auto) [place] % (Auto) Eos % (Auto) Baso % (Auto) Nucleat RBC Rel Count Absolute Neuts (auto) Absolute Lymphs (auto) Absolute Monos (auto) Absolute Eos (auto) Absolute Basos (auto) Absolute Nucleated RBC Immature Gran % Immature Gran # D-Dimer 1.02 ug/mLFEU H ug/mLFEU (0.00-0.50) Sodium 143 mEq/L mEq/L (135-145) Potassium 4.1 mEq/L mEq/L (3.3-5.0) Chloride 108 mEq/L mEq/L (97-110) Carbon Dioxide 27 mEq/l mEq/l (22-31) Anion Gap 8 mEq/L mEq/L (8-16) BUN 6 mg/dL L mg/dL (7-23) Creatinine 0.4 mg/dL L mg/dL (0.6-1.0) Estimated GFR > 60 Glucose 95 mg/dL mg/dL (70-100) Calcium 9.1 mg/dL mg/dL (8.5-10.4) POC Troponin I 0.00 ng/mL ng/mL (0.00-0.08) 04/14/18 14:30 WBC 4.12 10^3/uL 10^3/uL (3.80-9.50) RBC 4.13 10^6/uL L 10^6/uL (4.18-5.33) Hgb 11.4 g/dL L g/dL (12.6-16.3) Hct 36.5 % L % (38.0-47.0) MCV 88.4 fL fL (81.5-99.8) MCH 27.6 pg L pg (27.9-34.1) MCHC 31.2 g/dL L g/dL (32.4-36.7) RDW 18.4 % H % (11.5-15.2) Plt Count 343 10^3/uL 10^3/uL (150-400) MPV 9.3 fL fL (8.7-11.7) Neut % (Auto) 59.7 % % (39.3-74.2) Lymph % (Auto) 23.3 % % (15.0-45.0) [place] % (Auto) 14.1 % H % (4.5-13.0) Eos % (Auto) 0.7 % % (0.6-7.6) Baso % (Auto) 1.0 % % (0.3-1.7) Nucleat RBC Rel Count 0.0 % % (0.0-0.2) Absolute Neuts (auto) 2.46 10^3/uL 10^3/uL (1.70-6.50) Absolute Lymphs (auto) 0.96 10^3/uL L 10^3/uL (1.00-3.00) Absolute Monos (auto) 0.58 10^3/uL 10^3/uL (0.30-0.80) Absolute Eos (auto) 0.03 10^3/uL 10^3/uL (0.03-0.40) Absolute Basos (auto) 0.04 10^3/uL 10^3/uL (0.02-0.10) Absolute Nucleated RBC 0.00 10^3/uL 10^3/uL (0-0.01) Immature Gran % 1.2 % H % (0.0-1.1) Immature Gran # 0.05 10^3/uL 10^3/uL (0.00-0.10) D-Dimer Sodium Potassium Chloride Carbon Dioxide Anion Gap BUN Creatinine Estimated GFR Glucose Calcium POC Troponin I Medications Given: Hydrocodone Bitart/Acetaminophen ([place] 5/325) 1 - 2 tab PO Q4HRS PRN PRN Reason: Pain, Moderate Able to Take PO Stop: 04/24/18 18:20 Last Admin: 04/14/18 21:27 Dose: 2 tab Albuterol/Ipratropium (Duoneb) 3 ml IH QID [facility] Stop: 10/11/18 20:59 Last Admin: 04/14/18 20:41 Dose: 3 ml Enoxaparin Sodium (Lovenox) 90 mg SC BID [facility] Stop: 10/11/18 20:59 Last Admin: 04/14/18 21:28 Dose: 90 mg Oxycodone HCl (Oxycodone Ir) 5 - 10 mg PO Q3HRS PRN PRN Reason: Pain, Severe Able to Take PO Stop: 04/24/18 18:20 Last Admin: 04/14/18 18:54 Dose: 10 mg Vancomycin HCl (Vancocin Oral Liquid) 125 mg PO QID [facility] PRN Reason: Protocol Stop: 05/14/18 20:59 Last Admin: 04/14/18 21:29 Dose: 125 mg Discontinued Medications Hydromorphone HCl (Dilaudid) 0.5 mg IVP EDNOW ONE Stop: 04/14/18 15:47 Last Admin: 04/14/18 15:57 Dose: 0.5 mg Point of Care Test Results: Chemistry 04/14/18 14:31 POC Troponin I 0.00 ng/mL ng/mL (0.00-0.08) Departure - Departure Disposition: [facility] Inpatient Acute Clinical Impression: Adenocarcinoma of lung Qualifiers: Laterality: unspecified laterality Qualified Code(s): C34.90 - Malignant neoplasm of unspecified part of unspecified bronchus or lung Lumbar compression fracture Qualifiers: Encounter type: subsequent encounter Lumbar vertebra fracture level: L2 Fracture type: closed Condition: Good
--- NOTE | 2018-04-14 15:05 | CPEKG ---
Test Reason : OPEN Blood Pressure : / mmHG Vent. Rate : 093 BPM Atrial Rate : 093 BPM P-R Int : 136 ms QRS Dur : 132 ms QT Int : 377 ms P-R-T Axes : 061 068 023 degrees QTc Int : 469 ms Sinus rhythm Probable left atrial enlargement Right bundle branch block Borderline ST elevation, lateral leads Confirmed by Kaya Martinez ([id number]) on 04/14/2018 3:04:38 PM Referred By: Confirmed By:Kaya Martinez
[2018-04-14] MEDS ORDERED: HYDROmorphONE/DILAUDID 2 MG/ML INJ IVP ONE (15:46)
[2018-04-14] MEDS ORDERED: IOPAMIDOL (ISOVUE 370) 100 ML BTL IV ONE (15:51)
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
[2018-04-14] MEDS ORDERED: MAG HYDROX/AL HYDROX/SIMETH 30 ML UDCUP PO PRN (18:21)
[2018-04-14] MEDS ORDERED: ACETAMINOPHEN 325 MG TAB PO PRN (18:21)
[2018-04-14] MEDS ORDERED: ONDANSETRON 4 MG/2 ML VIAL IVP PRN (18:21)
[2018-04-14] MEDS ORDERED: HYDROmorphone HCL 0.5 MG/0.5 ML SYR IVP PRN (18:21)
[2018-04-14] MEDS ORDERED: ALBUTEROL 3 ML DEYVIAL IH PRN (18:21)
[2018-04-14] MEDS: oxyCODONE IR 5 MG TAB PO PRN ×2 (18:54→22:44)
[2018-04-14] MEDS: IPRATROPIUM/ALBUTEROL 3 ML DEYVIAL IH SCH (20:41)
[2018-04-14] MEDS: HYDROCODONE/APAP 5/325 TAB PO PRN (21:27)
[2018-04-14] MEDS: ENOXAPARIN 100 MG/ML SYR SC SCH (21:28)
[2018-04-14] MEDS: VANCOMYCIN 125 MG/2.5 ML UDL PO SCH (21:29)
--- NOTE | 2018-04-14 22:23 | HOSPPROG ---
Hospitalist Progress Note Assessment/Plan: Patient was seen and evaluated by myself and also seen separately by STANFORD Cotter, please review her H&P for further details. Care plan was reviewed with STANFORD Cotter. 58 yo F with PMH of metastatic NSCLC with pathologic L2 fracture, recent c diff colitis and recent dx of PE not compliant with AC here with uncontrolled pain after a recent AMA hospital discharge. # metastatic NSCLC: with chronically occluded RUL artery as well as chest wall and mediastinal invasion and destruction of posterior right 3rd and 4th ribs as well as right 3rd and 4th transverse process, and right L3 and 4 vertebral body , pathologic fracture of L2 and possible lymphangitic carcinomatosis--all essentially stable from prior imaging on personal review of CTA. Pain has been poorly controlled as patient left AMA at last discharge without any pain medications, attempting to control pain with ibuprofen. Oncology has been consulted, not many treatment options. She has undergone carbo/taxol at last hospital stay, radiation thought would not be helpful. Currently started on oxycodone with improved pain. At last hospitalization increased pain medications led to confusion and not much improvement in her sxs. # c diff colitis: diagnosed 04/04, was planned for a 10 day course of abx but patient left ama without abx--likely only got 1 or 2 doses, she states diarrhea still present but improved. Will resume vanco po and plan to treat for 7-10 days pending clinical course. # PE: diagnosed in December, patient originally on xarelto but again last hospitalization left AMA without meds and also states she feels the xarelto was giving her nosebleeds and she no longer wishes to take it, she does agree to be on lovenox at this time. Given involvement of tumor in her pulmonary artery anticoagulation is likely high risk--will obtain BLE US, if no DVT present and given no clear PE on CT, could consider dc of AC, or if DVT present consider filter. She is high risk for VTE and for bleeding. # BLE edema: bilateral legs with relatively tense edema and skin hyperpigmentation c/w chronic venous stasis changes, BLE US pending as above, not c/w cellulitis given bilateral nature of erythema but will monitor, elevate legs, start lasix in am # copd: without evidence of acute exacerbation, continue prn BDs # PTSD: likely contributing to patients ability to comply with treatment, will ask Marsha Arnold again to be involved # cognitive impairment: noted on prior admit with cog testing by DIVERSIFIED CROPS SUPERVISOR, possibly at that time also related to heavy narcotic use, consider repeating # psychosocial difficulties: has been intermittently homeless and living in car , states she now has an apartment, will ask CM to get involved # IP status, will require > 48 hours stay for eval/mgmt of above Patient new to my care. Old records reviewed and summarized as above. Care plan reviewed with ER doctor and CHECKER AND PACKER Viviana Cotter. Subjective: patient notes she is having increased pain in her chest, intermittent sob, difficulty walking and taking care of herself Objective: Vital Signs Temp Pulse Resp BP Pulse Ox 36.7 C 92 14 125/73 H 96 04/14/18 21:10 04/14/18 18:00 04/14/18 21:10 04/14/18 21:10 04/14/18 21:10 04/13/18 04/14/18 04/15/18 05:59 05:59 05:59 Intake Total 250 Balance 250 awake alert chronically ill appearing anicteric op clear rrr no mrg dec bs rul, scattered wheeze, normal wob soft nt nd 3+ pitting edema, legs tense, bilateral erythema warm dry well perfused oriented tangential ICD10 Worksheet Patient Problems: Problems Problem Status Onset Adenocarcinoma of lung Acute Lumbar compression fracture Acute Breast cancer Acute Cancer associated pain Acute Chest pain Acute Dehydration Acute Metastasis from breast cancer Acute Pulmonary embolism Acute
[2018-04-15] MEDS: oxyCODONE IR 5 MG TAB PO PRN ×5 (03:15→20:25)
[2018-04-15 05:05] LABS: PLATELET COUNT 294 10^3/uL (150-400)
[2018-04-15] MEDS: IPRATROPIUM/ALBUTEROL 3 ML DEYVIAL IH SCH ×4 (05:10→20:26)
[2018-04-15] MEDS: HYDROCODONE/APAP 5/325 TAB PO PRN ×2 (06:03→18:34)
[2018-04-15] MEDS: VANCOMYCIN 125 MG/2.5 ML UDL PO SCH ×4 (06:03→20:25)
[2018-04-15] MEDS: ENOXAPARIN 100 MG/ML SYR SC SCH ×2 (08:48→20:24)
[2018-04-15] MEDS: PANTOPRAZOLE SODIUM 40 MG TAB PO SCH (08:48)
[2018-04-15] MEDS: FUROSEMIDE 20 MG TAB PO SCH (08:49)
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
--- NOTE | 2018-04-15 12:04 | PDCONSULT ---
Blasting Helper Note: Ms. Damon is a 58 year old female with locally advanced NSCLC admitted for right upper back pain and shortness of breath. She was recently admitted from 03/31-04/07 for acute on chronic pain in the chest and new low back pain. She was found to have an L2 subacute pathologic fracture. Radiation oncology felt she wasn't a candidate for XRT to L2 lesion due to pain not corresponding to level of injury. Her pain medication was increased and she was treated for acute c. diff diarrhea. Unfortunately, she left AMA - despite psychiatric hold - without any of her pain medication and having not completed c. diff therapy(of note, MOCA done in hospital scored 7/20) . She also refused xarelto for her PE. She presented to the ER last night with 2 days of breathlessness. CTA was without acute PE. She was without her home oxygen on presentation and was placed back on oxygen. She also reported ongoing right upper back pain (site of her tumor). She denies any other symptoms. She is adamant against further chemotherapy and reports that she had an allergic reaction to xarelto and is refusing this as well. Of note, she received carboplatin and paclitaxel 03/28 while admitted for acute on chronic right upper back pain and was discharged 03/29/18. Review of Systems A complete 12 point ROS was negative unless indicated in the history of the present illness (somewhat limited by flight of ideas) PMH -History of left sided triple negative breast cancer in 2001 with surgery followed by XRT and chemotherapy -COPD -Pulmonary embolism -NSCLC right lung, non operable -Cognitive impairment PSH -left breast cancer surgery SH -Active tobacco user. She reports currently living an apartment with her boyfriend FH -No family history of cancer Allergies - reviewed in chart Medications reviewed in the [facility] Physical examination Vital Signs Reviewed General; no acute distress, non toxic appearing HEENT: PERRL, no icterus or pallor, oral mucosa is moist Neck: supple CV: RRR without rubs thrills or gallops Chest: Clear on the left lung, patient would not allow examination of right lung Abdomen: soft, nontender, no HSM Extremities: warm and well perfused, 1+ non pitting edema with bilateral redness /warmth of lower extremities consistent with venous stasis changes, digital clubbing Neurologic: alert and oriented Labs and Imaging reviewed in [facility] Assessment and Plan Patient is a 58 year year old female with locally advanced NSCLC admitted breathlessness and acute on chronic pain. Problem #1 - Shortness of breath/chronic hypoxemic respiratory failure CT on admission without PE or new infiltrate concerning for infectious process. No cough or sputum production to suggest COPD exacerbation. Breathlessness likely from anxiety/withdrawal from opiates and not being on oxygen which she clearly needs (although smoking makes outpatient 02 somewhat challenging) -restart home inhalers -continue oxygen while in hospital Problem #2 - Locally advanced lung cancer Patient has received palliative XRT and first cycle of carboplatin paclitaxel . She is a patient of Dr. Weller. She has discussed moving to [place] recently for better homeless services and to continue treatment for lung cancer. She is adamant with me today she does not want anymore chemotherapy. Will respect her wishes. It seems clear she needs some sort of guardianship given severe neuropsychiatric disturbance, would prefer this issue to be settled before giving anymore palliative chemotherapy. -Recommend continuing pain medication for symptomatic locally advanced NSCLC Baron Morel
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
--- NOTE | 2018-04-15 18:17 | HOSPPROG ---
Hospitalist Progress Note Assessment/Plan: 58 yo F with PMH of metastatic NSCLC with pathologic L2 fracture, recent c diff colitis and recent dx of PE not compliant with AC here with uncontrolled pain after a recent AMA hospital discharge. #Acute pain: Related to underlying cancer - She is doing well with current regimen, will keep for now #Cognitive impairment, psychosocial difficulties: Intermittently homeless, limited support. 02/08 on MOCA last admit. - Case management involved - Ethics consult to help with decision maker - Palliative care consult #Locally advanced NSCLC: With chronically occluded RUL artery, chest wall/ mediastinal and rib invasion. - Oncology following. Patient steadfast in refusing additional chemotherapy, which is very reasonable. #C diff colitis: - PO vancomycin #PE: Diagnosed 12/2017 - Continue LMWH, she is refusing DOACs #BLE edema: Chronic venous insufficiency - On lasix #Chronic respiratory insufficiency with COPD: No acute flare. - Continue home bronchodilators #Pathologic L2 fracture: Not XRT candidate. Diet: regular VTE ppx: LMWH Code: full Dispo: Switch to inpatient as unsafe for discharge to home at this time. Subjective: She is upset that tried to apply for medicaid, telling me to "burn those papers in a campfire." Denies difficulty breathing. No more diarrhea. Objective: Vital Signs Temp Pulse Resp BP Pulse Ox 36.6 C 86 22 H 96/56 L 100 04/15/18 16:15 04/15/18 17:05 04/15/18 17:05 04/15/18 16:15 04/15/18 17:05 Laboratory Results 04/15/18 04:25 04/15/18 04:25 04/14/18 04/15/18 04/16/18 05:59 05:59 05:59 Intake Total 950 Balance 950 - Physical Exam Constitutional: no apparent distress, appears nourished, not in pain, other ( unkempt) Eyes: PERRL, anicteric sclera, EOMI Ears, Nose, Mouth, Throat: moist mucous membranes, hearing normal, ears appear normal, no oral mucosal ulcers Cardiovascular: regular rate and rhythym, no murmur, rub, or gallop, edema (1+ to bilaterl knees) Respiratory: no respiratory distress, no rales or rhonchi, clear to auscultation Gastrointestinal: normoactive bowel sounds, soft, non-tender abdomen, no palpable masses Musculoskeletal: full muscle strength, no muscle tenderness, normal joint ROM Neurologic: other (alert) Psychiatric: other (tangential thought processes) ICD10 Worksheet Patient Problems: Problems Problem Status Onset Adenocarcinoma of lung Acute Lumbar compression fracture Acute Breast cancer Acute Cancer associated pain Acute Chest pain Acute Dehydration Acute Metastasis from breast cancer Acute Pulmonary embolism Acute
[2018-04-15] MEDS ORDERED: HYDROmorphone HCL 0.5 MG/0.5 ML SYR IVP PRN (23:24)
[2018-04-15] MEDS: LORazepam 0.5 MG TAB PO PRN (23:54)
[2018-04-15] MEDS: diphenhydrAMINE 25 MG CAP PO PRN (23:54)
[2018-04-16] MEDS: IPRATROPIUM/ALBUTEROL 3 ML DEYVIAL IH SCH ×4 (05:14→21:05)
[2018-04-16] MEDS: VANCOMYCIN 125 MG/2.5 ML UDL PO SCH ×4 (07:46→20:26)
[2018-04-16] MEDS: PANTOPRAZOLE SODIUM 40 MG TAB PO SCH (07:47)
[2018-04-16] MEDS: ONDANSETRON DISINTEGRATING 4 MG TAB PO PRN (07:47)
[2018-04-16] MEDS: LORazepam 0.5 MG TAB PO PRN ×3 (07:47→20:26)
[2018-04-16] MEDS: oxyCODONE IR 5 MG TAB PO PRN ×4 (07:47→22:11)
[2018-04-16] MEDS: FUROSEMIDE 20 MG TAB PO SCH (07:47)
[2018-04-16] MEDS: ENOXAPARIN 100 MG/ML SYR SC SCH ×2 (07:47→20:26)
[2018-04-16] MEDS: diphenhydrAMINE 25 MG CAP PO PRN ×2 (10:39→17:48)
[2018-04-16] MEDS: HYDROmorphONE/DILAUDID 4 MG TAB PO PRN ×3 (10:39→20:26)
--- NOTE | 2018-04-16 10:42 | PDMN ---
Medical Necessity Medical necessity: Change to IP, as of 04/15/18, per & [facility] CG-GDC (General Discharge Criteria); los >2 mn for ongoing management of cognitive impairment in the setting of metastatic lung cancer; requiring Ethics/Palliative/CM consults; hx recent hospitalization for uncontrolled pain & C diff colitis, PE w /noncompliance taking AC, homelessness, NSCLC with refusal of chemo, L2 fx, COPD
--- NOTE | 2018-04-16 11:46 | HOSPPROG ---
Hospitalist Progress Note Assessment/Plan: 58 yo F with PMH of metastatic NSCLC with pathologic L2 fracture, recent c diff colitis and recent dx of PE not compliant with AC here with uncontrolled pain after a recent AMA hospital discharge. #Acute pain: Related to underlying cancer - Wean off IV meds, discontinue IV dilaudid and start PO PRN #Cognitive impairment, psychosocial difficulties: Intermittently homeless, limited support. 02/08 on MOCA last admit but reportedly performed after receiving opioids. - Case management involved. Patient declining to sign long-term medicaid form , thus difficulty in setting of safe discharge - Ethics consult to help with decision maker - Palliative care consult, plan to see on Thursday #Locally advanced NSCLC: With chronically occluded RUL artery, chest wall/ mediastinal and rib invasion. - Oncology following. Patient steadfast in refusing additional chemotherapy, which is very reasonable. #C diff colitis: - PO vancomycin #PE: Diagnosed 12/2017 - Continue LMWH, she is refusing DOACs #BLE edema: Chronic venous insufficiency - On lasix #COPD: No acute flare. On room air. - Continue home bronchodilators #Pathologic L2 fracture: Not XRT candidate. Diet: regular VTE ppx: therapeutic LMWH Code: full Dispo: Continue inpatient as do not have safe discharge plan at this time, still titrating pain medications, trying to find decision maker. Subjective: In pain this AM. Located in right lung, where she chronically has pain. Breathing much better though after BDs. Denies diarrhea. Leg swelling similar to yesterday. Objective: Vital Signs Temp Pulse Resp BP Pulse Ox 36.7 C 99 20 113/68 89 L 04/16/18 07:57 04/16/18 09:49 04/16/18 09:49 04/16/18 07:57 04/16/18 09:49 04/15/18 04/16/18 04/17/18 05:59 05:59 05:59 Intake Total 950 Balance 950 - Physical Exam Constitutional: appears nourished, not in pain, uncomfortable (due to pain) Eyes: PERRL, anicteric sclera, EOMI Ears, Nose, Mouth, Throat: moist mucous membranes, hearing normal, ears appear normal, no oral mucosal ulcers Cardiovascular: regular rate and rhythym, no murmur, rub, or gallop, edema (2+ in bilateral LE) Respiratory: no respiratory distress, no rales or rhonchi, clear to auscultation Gastrointestinal: normoactive bowel sounds, soft, non-tender abdomen, no palpable masses Genitourinary: no bladder fullness, no bladder tenderness, no renal bruits Musculoskeletal: full muscle strength, no muscle tenderness, normal joint ROM Neurologic: AAOx3 Psychiatric: other (tangential thought processes) ICD10 Worksheet Patient Problems: Problems Problem Status Onset Adenocarcinoma of lung Acute Lumbar compression fracture Acute Breast cancer Acute Cancer associated pain Acute Chest pain Acute Dehydration Acute Metastasis from breast cancer Acute Pulmonary embolism Acute
--- NOTE | 2018-04-16 12:25 | ASMTCMCOM ---
CM Note CM Note Notes: Reviewed in interdisciplinary rounds. Ethics involved. Zena Clifton attempting proxy search. Speech eval score 19 still below cut off of 26. Patient still with out clear discharge plan. Refused to sign ULTC 100 paperwork. (in chart)CM to follow. Plan: TBD Date Signed: 04/16/2018 12:24 PM Electronically Signed By:Dottie Mason RN
--- NOTE | 2018-04-16 13:43 | ASMTCMCOM ---
CM Note CM Note Notes: Contacted [facility] [place] at pt's request to inquire about her housing situation. They have no record of an account with her name on it. Pt did not want to discuss. CM will continue to follow. Date Signed: 04/16/2018 01:42 PM Electronically Signed By:LES Rubio
[2018-04-17] MEDS: HYDROmorphONE/DILAUDID 4 MG TAB PO PRN ×6 (00:13→22:03)
[2018-04-17] MEDS: LORazepam 0.5 MG TAB PO PRN ×3 (02:56→19:40)
[2018-04-17] MEDS: oxyCODONE IR 5 MG TAB PO PRN ×5 (02:56→19:26)
[2018-04-17] MEDS: IPRATROPIUM/ALBUTEROL 3 ML DEYVIAL IH SCH ×4 (05:02→21:59)
[2018-04-17] MEDS: VANCOMYCIN 125 MG/2.5 ML UDL PO SCH ×4 (05:13→21:24)
[2018-04-17] MEDS: FUROSEMIDE 20 MG TAB PO SCH (09:13)
[2018-04-17] MEDS: PANTOPRAZOLE SODIUM 40 MG TAB PO SCH (09:13)
[2018-04-17] MEDS: ENOXAPARIN 100 MG/ML SYR SC SCH ×2 (09:13→21:24)
--- NOTE | 2018-04-17 14:14 | HOSPPROG ---
Hospitalist Progress Note Assessment/Plan: 58 yo F with PMH of metastatic NSCLC with pathologic L2 fracture, recent c diff colitis and recent dx of PE not compliant with AC here with uncontrolled pain after a recent AMA hospital discharge. Acute pain: Related to underlying cancer - Wean off IV meds, discontinue IV dilaudid and start PO PRN 04/17- add scheduled tylenol and ibuprofen Cognitive impairment, psychosocial difficulties: Intermittently homeless, limited support. 02/08 on [facility] last admit but reportedly performed after receiving opioids. - Case management involved. Patient declining to sign long-term medicaid form , thus difficulty in setting of safe discharge - Ethics consult to help with decision maker - Palliative care consult, plan to see on Thursday Locally advanced NSCLC: With chronically occluded RUL artery, chest wall/ mediastinal and rib invasion. - Oncology following. Patient steadfast in refusing additional chemotherapy, which is very reasonable. C diff colitis: - PO vancomycin PE: Diagnosed 12/2017 - Continue LMWH, she is refusing DOACs BLE edema: Chronic venous insufficiency - On lasix COPD: No acute flare. On room air. - Continue home bronchodilators Pathologic L2 fracture: Not XRT candidate. Diet: regular VTE ppx: therapeutic LMWH Code: full Dispo: Continue inpatient as do not have safe discharge plan at this time, still titrating pain medications, trying to find decision maker. Subjective: states pain incompletely controlled. no bm today Objective: Vital Signs Temp Pulse Resp BP Pulse Ox 36.6 C 99 18 112/63 94 04/17/18 11:24 04/17/18 11:24 04/17/18 11:24 04/17/18 11:24 04/17/18 11:24 04/16/18 04/17/18 04/18/18 05:59 05:59 05:59 Intake Total 950 300 Output Total 350 Balance 950 -50 - Physical Exam Constitutional: no apparent distress, appears nourished Eyes: PERRL, anicteric sclera Ears, Nose, Mouth, Throat: moist mucous membranes, hearing normal Cardiovascular: regular rate and rhythym, no murmur, rub, or gallop Respiratory: no respiratory distress, no rales or rhonchi Gastrointestinal: normoactive bowel sounds, soft, non-tender abdomen Genitourinary: no bladder fullness, No ayala in urethra Skin: warm, normal color Musculoskeletal: full muscle strength Neurologic: AAOx3 Psychiatric: interacting appropriately Lymph, Heme, Immunologic: no cervical LAD ICD10 Worksheet Patient Problems: Problems Problem Status Onset Adenocarcinoma of lung Acute Lumbar compression fracture Acute Breast cancer Acute Cancer associated pain Acute Chest pain Acute Dehydration Acute Metastasis from breast cancer Acute Pulmonary embolism Acute
[2018-04-17] MEDS: ACETAMINOPHEN 500 MG TAB PO SCH ×2 (14:54→16:08)
[2018-04-17] MEDS: GABAPENTIN 100 MG CAP PO SCH ×2 (16:48→21:23)
[2018-04-17] MEDS ORDERED: IBUPROFEN 200 MG TAB PO SCH (18:00)
[2018-04-18] MEDS: oxyCODONE IR 5 MG TAB PO PRN ×5 (00:04→18:30)
[2018-04-18] MEDS: HYDROmorphONE/DILAUDID 4 MG TAB PO PRN ×5 (02:36→21:05)
[2018-04-18] MEDS: IPRATROPIUM/ALBUTEROL 3 ML DEYVIAL IH SCH ×4 (05:11→21:24)
[2018-04-18] MEDS: VANCOMYCIN 125 MG/2.5 ML UDL PO SCH ×4 (06:02→21:04)
[2018-04-18] MEDS: PANTOPRAZOLE SODIUM 40 MG TAB PO SCH (08:44)
[2018-04-18] MEDS: ENOXAPARIN 100 MG/ML SYR SC SCH ×2 (08:44→21:05)
[2018-04-18] MEDS: GABAPENTIN 100 MG CAP PO SCH ×3 (08:44→21:04)
[2018-04-18] MEDS: FUROSEMIDE 20 MG TAB PO SCH (08:44)
[2018-04-18] MEDS ORDERED: MAGNESIUM HYDROXIDE 30 ML UDCUP PO PRN (10:09)
[2018-04-18] MEDS ORDERED: LACTULOSE 20 GM/30 ML UDCUP PO PRN (10:09)
[2018-04-18] MEDS ORDERED: BISACODYL 10 MG SUPP PR PRN (10:09)
[2018-04-18] MEDS: POLYETHYLENE GLYCOL 3350 17 GM PKT PO PRN (11:00)
[2018-04-18] MEDS: diphenhydrAMINE 25 MG CAP PO PRN ×3 (11:02→21:11)
[2018-04-18] MEDS: SENNOSIDES/DOCUSATE SODIUM TAB PO SCH ×2 (12:33→21:04)
[2018-04-18] MEDS: CYCLOBENZAPRINE 10 MG TAB PO PRN (14:03)
--- NOTE | 2018-04-18 14:06 | HOSPPROG ---
Hospitalist Progress Note Assessment/Plan: 58 yo F with PMH of metastatic NSCLC with pathologic L2 fracture, recent c diff colitis and recent dx of PE not compliant with AC here with uncontrolled pain after a recent AMA hospital discharge. Acute pain: Related to underlying cancer - Wean off IV meds, discontinue IV dilaudid and start PO PRN 04/17- add scheduled tylenol and ibuprofen 04/18- refused tylenol and ibuprofen add flexeril Cognitive impairment, psychosocial difficulties: Intermittently homeless, limited support. 02/08 on [facility] last admit but reportedly performed after receiving opioids. - Case management involved. Patient declining to sign long-term medicaid form , thus difficulty in setting of safe discharge - Ethics consult to help with decision maker - Palliative care consult, plan to see on Thursday Locally advanced NSCLC: With chronically occluded RUL artery, chest wall/ mediastinal and rib invasion. - Oncology following. Patient steadfast in refusing additional chemotherapy, which is very reasonable. C diff colitis: - PO vancomycin actually constipated PE: Diagnosed 12/2017 - Continue LMWH, she is refusing DOACs BLE edema: Chronic venous insufficiency - On lasix COPD: No acute flare. On room air. - Continue home bronchodilators Pathologic L2 fracture: Not XRT candidate. Diet: regular VTE ppx: therapeutic LMWH Code: full Dispo: Continue inpatient as do not have safe discharge plan at this time, still titrating pain medications, trying to find decision maker. Subjective: c/o pain Objective: Vital Signs Temp Pulse Resp BP Pulse Ox 36.6 C 106 H 20 107/55 L 91 L 04/18/18 12:00 04/18/18 12:00 04/18/18 12:00 04/18/18 12:00 04/18/18 12:00 04/17/18 04/18/18 04/19/18 05:59 05:59 05:59 Intake Total 300 450 Output Total 350 Balance -50 450 - Physical Exam Constitutional: no apparent distress, appears nourished Eyes: PERRL, anicteric sclera Ears, Nose, Mouth, Throat: moist mucous membranes, hearing normal Cardiovascular: regular rate and rhythym, no murmur, rub, or gallop Respiratory: no respiratory distress, no rales or rhonchi Gastrointestinal: normoactive bowel sounds, soft, non-tender abdomen Genitourinary: no bladder fullness, No ayala in urethra Skin: warm, normal color Musculoskeletal: full muscle strength, no muscle tenderness Neurologic: AAOx3, sensation intact bilaterally Psychiatric: interacting appropriately Lymph, Heme, Immunologic: no cervical LAD ICD10 Worksheet Patient Problems: Problems Problem Status Onset Adenocarcinoma of lung Acute Lumbar compression fracture Acute Breast cancer Acute Cancer associated pain Acute Chest pain Acute Dehydration Acute Metastasis from breast cancer Acute Pulmonary embolism Acute
[2018-04-19] MEDS: HYDROmorphONE/DILAUDID 4 MG TAB PO PRN ×4 (03:54→21:47)
[2018-04-19] MEDS: IPRATROPIUM/ALBUTEROL 3 ML DEYVIAL IH SCH ×4 (05:27→20:55)
[2018-04-19] MEDS: VANCOMYCIN 125 MG/2.5 ML UDL PO SCH ×4 (05:53→21:46)
[2018-04-19] MEDS: oxyCODONE IR 5 MG TAB PO PRN ×3 (05:54→16:35)
[2018-04-19] MEDS: SENNOSIDES/DOCUSATE SODIUM TAB PO SCH ×2 (08:44→21:47)
[2018-04-19] MEDS: PANTOPRAZOLE SODIUM 40 MG TAB PO SCH (08:45)
[2018-04-19] MEDS: CYCLOBENZAPRINE 10 MG TAB PO PRN (08:45)
[2018-04-19] MEDS: FUROSEMIDE 20 MG TAB PO SCH (08:45)
[2018-04-19] MEDS: GABAPENTIN 100 MG CAP PO SCH ×3 (08:45→21:48)
[2018-04-19] MEDS: ENOXAPARIN 100 MG/ML SYR SC SCH ×2 (08:50→21:51)
--- NOTE | 2018-04-19 09:59 | ASMTCMCOM ---
CM Note CM Note Notes: Chart reviewed. Patient disease process, pain issues, homelessness and cognitive function are barriers to safe discharge plan at this time. Call placed to [facility] in [place] to seek available assistance for Sharon. GRACE to follow. Plan: TBD Date Signed: 04/19/2018 09:59 AM Electronically Signed By:Dottie Mason RN
--- NOTE | 2018-04-19 14:11 | HOSPPROG ---
Hospitalist Progress Note Assessment/Plan: 58 yo F with PMH of metastatic NSCLC with pathologic L2 fracture, recent c diff colitis and recent dx of PE not compliant with AC here with uncontrolled pain after a recent AMA hospital discharge. Acute pain: Related to underlying cancer - Wean off IV meds, discontinue IV dilaudid and start PO PRN 04/17- add scheduled tylenol and ibuprofen 04/18- refused tylenol and ibuprofen add flexeril Cognitive impairment, psychosocial difficulties: Intermittently homeless, limited support. 02/08 on [facility] last admit but reportedly performed after receiving opioids. - Case management involved. Patient declining to sign long-term medicaid form , thus difficulty in setting of safe discharge - Ethics consult to help with decision maker - Palliative care consult, plan to see on Thursday Locally advanced NSCLC: With chronically occluded RUL artery, chest wall/ mediastinal and rib invasion. - Oncology following. Patient steadfast in refusing additional chemotherapy, which is very reasonable. C diff colitis: - PO vancomycin day 12/17 (last in 04/20) actually constipated PE: Diagnosed 12/2017 - Continue LMWH, she is refusing DOACs BLE edema: Chronic venous insufficiency - On lasix COPD: No acute flare. On room air. - Continue home bronchodilators Pathologic L2 fracture: Not XRT candidate. Diet: regular VTE ppx: therapeutic LMWH Code: full Dispo: Continue inpatient as do not have safe discharge plan at this time, still titrating pain medications, trying to find decision maker. 04/19- case management, ethics working towards a proxy, discharge destination Subjective: states pain improved w flexeril. moved bowels Objective: Vital Signs Temp Pulse Resp BP Pulse Ox 36.6 C 105 H 16 98/75 L 93 04/19/18 09:26 04/19/18 09:26 04/19/18 09:26 04/19/18 09:26 04/19/18 09:26 04/18/18 04/19/18 04/20/18 05:59 05:59 05:59 Intake Total 450 650 240 Balance 450 650 240 ICD10 Worksheet Patient Problems: Problems Problem Status Onset Adenocarcinoma of lung Acute Lumbar compression fracture Acute Breast cancer Acute Cancer associated pain Acute Chest pain Acute Dehydration Acute Metastasis from breast cancer Acute Pulmonary embolism Acute
[2018-04-19] MEDS: diphenhydrAMINE 25 MG CAP PO PRN ×2 (14:43→21:48)
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
[2018-04-20] MEDS: CYCLOBENZAPRINE 10 MG TAB PO PRN ×2 (04:46→21:48)
[2018-04-20] MEDS: HYDROmorphONE/DILAUDID 4 MG TAB PO PRN (04:46)
[2018-04-20] MEDS: VANCOMYCIN 125 MG/2.5 ML UDL PO SCH ×4 (04:47→20:44)
[2018-04-20] MEDS: IPRATROPIUM/ALBUTEROL 3 ML DEYVIAL IH SCH ×2 (06:17→11:55)
[2018-04-20] MEDS: ENOXAPARIN 100 MG/ML SYR SC SCH ×2 (08:45→20:44)
[2018-04-20] MEDS: oxyCODONE IR 5 MG TAB PO PRN ×3 (08:46→21:48)
[2018-04-20] MEDS: SENNOSIDES/DOCUSATE SODIUM TAB PO SCH ×2 (08:49→20:44)
[2018-04-20] MEDS: GABAPENTIN 100 MG CAP PO SCH ×3 (08:49→21:48)
[2018-04-20] MEDS: diphenhydrAMINE 25 MG CAP PO PRN (08:50)
[2018-04-20] MEDS: PANTOPRAZOLE SODIUM 40 MG TAB PO SCH (08:56)
[2018-04-20] MEDS: FUROSEMIDE 20 MG TAB PO SCH (08:56)
[2018-04-20] MEDS ORDERED: GABAPENTIN 100 MG CAP PO ONE (09:31)
[2018-04-20] MEDS ORDERED: LORazepam 1 MG TAB PO ONE (09:33)
--- NOTE | 2018-04-20 11:27 | GCON ---
PALLIATIVE MEDICINE CONSULT DATE OF CONSULTATION: 04/20/2018 REFERRING PHYSICIAN: Taco Calderón MD CHIEF COMPLAINT: Dr. Taco Calderón requests goals of care conversation and assistance with symptom management. HISTORY OF PRESENT ILLNESS: This is a 58-year-old woman who has metastatic non- small cell lung cancer. In addition, she has COPD; a history of a pulmonary embolus, currently on Lovenox therapy; a history of breast cancer; recent Clostridium difficile infection; and posttraumatic stress disorder. She was hospitalized from March 27 through April 07 because of pain and her cancer; however, she left against medical advice and has since returned to the hospital on April 14. She has been in the hospital since that time, struggling with pain. In addition, she has a complex social situation, and attempts are being made to find an improved living situation for her. She returned to the hospital because of severe shortness of breath and severe pain, especially in her back. She does have a known L2 subacute pathologic fracture. She will complete her treatment for Clostridium difficile today. She is also experiencing pain in the right posterior trapezius area related to high tumor burden there. On readmission to the hospital, she reported that she had been trying high doses of acetaminophen and ibuprofen as well as NyQuil to alleviate her pain without success. The patient reports ongoing persistent pain despite the use of as-needed Dilaudid and oxycodone. She reports an allergy to morphine that was not listed on her current allergy list. She feels she has been struggling to receive adequate pain relief throughout the night and therefore, it is much worse this morning. She did recently receive oxycodone; however, it takes a long time to have an effect. She denies problems with constipation. She initially denied problems with nausea, but then states that she does have intermittent nausea which makes it difficult to eat. She also suffers from numbness and tingling in her hands and feet, but does not feel that she has received much benefit, as of yet, from the gabapentin.She has also tried a heating pad for the pain, with some relief. Movement worsens the pain. With regards to further treatment for her cancer, she is clear she would not want further chemotherapy, but did express the idea of following up with her oncologist to discuss other options. REVIEW OF SYSTEMS: As indicated in the History of Present Illness. PAST MEDICAL HISTORY: 1. Non-small cell lung cancer. 2. COPD. 3. Pulmonary embolus. 4. Posttraumatic stress disorder. 5. History of breast cancer. SOCIAL HISTORY: Per review of records, she does smoke. She has a difficult living situation and often lives in a truck or with friends. Ethics has been involved to help determine her capacity as well as help identify a medical power of divorce attorney, as her long-term significant other of 25 years is not willing to do so. FAMILY HISTORY: As indicated in the computerized medical records. ALLERGIES: Sulfa, acetaminophen, codeine, hydrocodone, NSAIDs, penicillins, fentanyl, and as of today, the patient states she is allergic to morphine. She states that many opioids cause itching, which is why she frequently uses Benadryl. CURRENT MEDICATIONS: 1. Albuterol nebulizer every 2 hours as needed. 2. Maalox 30 cc every 4 hours as needed. 3. Zofran 4 mg every 4 hours as needed. 4. Immediate release oxycodone 5 to 10 mg every 3 hours as needed. 5. Lovenox 90 mg subcutaneously twice daily. 6. DuoNebs 4 times daily scheduled. 7. Vancomycin 125 mg 4 times daily, to be completed on today's date. 8. Lasix 20 mg p.o. daily. 9. Protonix 40 mg p.o. daily. 10. Ativan 0.5 to 1 mg every 6 hours as needed. 11. Benadryl 50 mg by mouth every 6 hours as needed. 12. Dilaudid 4 mg every 4 hours as needed. 13. Gabapentin 100 mg 3 times daily. 14. Bisacodyl 10 mg per rectum as needed. 15. Lactulose 20 g 3 times daily as needed. 16. Milk of Magnesia 30 cc daily as needed. 17. MiraLAX 17 g daily as needed. 18. Senna 1 tablet twice daily scheduled, can increase to 2 tablets if ineffective for 12 hours. 19. Flexeril 10 mg 3 times daily as needed. PHYSICAL EXAM: VITAL SIGNS: Current vital signs show a blood pressure of 112/ 78, a heart rate of 113, a respiratory rate of 18, and she is currently 95% on 2 L. She has a temperature of 37.1 degrees Celsius. GENERAL: She is alert and oriented, but has poor insight into the ramifications of her choices. Able to speak in full sentences. CARDIOVASCULAR: Regular rate and rhythm. She has intact pedal and radial pulses bilaterally. Her extremities are warm. She does have bilateral lower extremity edema, +1. RESPIRATORY: Adequate effort and expansion. Diminished in the bases. Overall clear. ABDOMEN: Positive bowel sounds. Soft and nontender at this time. SIGNIFICANT LABORATORY DATA: Includes a CAT scan of the chest and thorax done on April 14, which showed stable focal invasion of the presumed right upper lobe pulmonary arterial segment, unchanged from prior imaging. This is consistent with her known pulmonary emboli. She also has a stable right upper lung mass, which extends from the right hilum to the right apex as well as extends into the subcarinal region. She has evidence of increasing lymphangitic carcinomatosis and erosion of the tumor into the right 3rd and 4th ribs, as well as adjacent transverse processes and right lateral aspect of the 3rd and 4th vertebral body segments. There is a lesion in the left adrenal gland, also suspicious for metastasis. There is mild compression and patchy sclerosis in the left superior endplate of L2 and the adjacent psoas muscle, also suspicious for metastatic disease. ASSESSMENT AND PLAN: This is a 58-year-old woman with metastatic non-small cell lung cancer, currently declining treatment; however, she seems to wax and wane in this regard. 1. Pain. I believe she would benefit from addition of a long-acting pain medicine. She has taken the equivalent of 73 mg of oxycodone in the past 24 hours. Given her unrelieved pain, I feel it is reasonable to go ahead and start OxyContin at 40 mg twice daily. She can continue to have p.r.n.'s as needed. In addition, she does complain of numbness and tingling in her hands. Therefore, upward titration of gabapentin may be of benefit. I will increase her gabapentin from 100 mg 3 times daily to 200 mg 3 times daily. Finally, given her bony metastasis, she may benefit from dexamethasone, and I will add this. Given her labile mood, I will start at only 4 mg of dexamethasone once daily. Should she tolerate this, this can be increased to twice daily. 2. Nausea. The patient has intermittent and variable complaints of this; however, she does say it does limit her oral intake. I would suggest premedicating with Zofran prior to meals to see if this does improve her oral intake. 3. Shortness of breath. The patient currently has no complaints of this, although does state at night, her breathing worsens. Her DuoNebs are currently scheduled, but she consistently refuses them. Perhaps the dexamethasone will also help with her breathing. 4. NSCLC. This is metastatic and the patient has declined further attempts at chemotherapy, but did voice that she would be interested in anything else her oncologist would offer. I shared with her that I could follow her as an outpatient and manage her pain, if she was on hospice AND that if she desired she could still see her oncologist while on hospice. She is currently listed as full code. During this visit, the patient was focused on her pain and was also making plans to leave the hospital AMA again and therefore I did not address this issue. At my next follow up visit I will. Please feel free to reach out at any time with any questions. Please note that approximately 75 minutes has been spent on this consult, including reviewing the chart, assessing the patient F2F and care was coordinated with . Copy requested to: [facility] /[id number]/MODL [email or web address]
[2018-04-20] MEDS ORDERED: IPRATROPIUM/ALBUTEROL 3 ML DEYVIAL IH PRN (12:01)
[2018-04-20] MEDS: DEXAMETHASONE 4 MG TAB PO SCH (12:31)
[2018-04-20] MEDS: ONDANSETRON DISINTEGRATING 4 MG TAB PO SCH ×2 (12:33→17:09)
--- NOTE | 2018-04-20 14:01 | ASMTCMCOM ---
CM Note CM Note Notes: Patient seen early this am with palliative care Dr. Tai. The patient is currently agitated and appears to be in pain. She reports she was unhappy with interactions with her night nurse. She is asking to have her IV out and leave. Dr. Tai pointed out that her pain was not controlled and that if we are able to find her a PCP but they may not be comfortable prescribing her pain medications. CM revisited with patient with hospital medicine. She again states she want to leave as Tristin is getting frustrated. She is requesting her IV be taken out and Dr. Walker is agreeable to this. She again is asking about [facility], part of her needs support and the other part is her wanting to please Eduardo. She was able to verbalize a fairly reasonable plan with Dr. Walker and he feels at this point she is capable of making decisions. CM to follow. Plan: TBD Date Signed: 04/20/2018 02:00 PM Electronically Signed By:Dottie Mason RN
--- NOTE | 2018-04-20 14:06 | HOSPPROG ---
Hospitalist Progress Note Assessment/Plan: # uncontrolled pain d/t cancer - cont oxycontin 40 bid, dilaudid, oxy, kym, flexeril - decadron started # NSCLC locally advanced - refuses chemo # PE, dx'd 12/2017 - on LMWH as she had refused NOACs - I did not discuss this with her today # c. dif colitis - cont vanc PO dc after today # COPD - on bronchodilators # venous insufficiency - lasix # decisional capacity - per my interview, she has capacity today; she has insight into her conditions, and plans (although not very good) regarding her dispo # dispo - she agrees to stay here if i remove her IV, which i did Subjective: long discussion with patient and SANJAY Moore Objective: Vital Signs Temp Pulse Resp BP Pulse Ox 37.1 C 113 H 18 112/78 95 04/20/18 07:51 04/20/18 07:51 04/20/18 07:51 04/20/18 07:51 04/20/18 07:51 Laboratory Results 04/20/18 05:14 04/19/18 04/20/18 04/21/18 05:59 05:59 05:59 Intake Total 650 1740 Balance 650 1740 - Time Spent With Patient Time Spent with Patient: greater than 35 minutes Time Spent with Patient: Greater than 35 minutes spent on this patients care, greater than 50% of time spent counseling, educating, and coordinating care regarding the above mentioned plan. - Physical Exam Constitutional: no apparent distress, appears nourished, not in pain ICD10 Worksheet Patient Problems: Problems Problem Status Onset Breast cancer Acute Dehydration Acute Cancer associated pain Acute Pulmonary embolism Acute Chest pain Acute Adenocarcinoma of lung Acute Metastasis from breast cancer Acute Lumbar compression fracture Acute
[2018-04-20] MEDS: LORazepam 0.5 MG TAB PO SCH ×2 (15:02→21:48)
[2018-04-21] MEDS: LORazepam 0.5 MG TAB PO SCH ×3 (05:19→21:30)
[2018-04-21] MEDS: oxyCODONE IR 5 MG TAB PO PRN ×2 (05:19→10:24)
[2018-04-21] MEDS: VANCOMYCIN 125 MG/2.5 ML UDL PO SCH (05:20)
[2018-04-21] MEDS: ONDANSETRON DISINTEGRATING 4 MG TAB PO PRN (05:21)
[2018-04-21] MEDS: ONDANSETRON DISINTEGRATING 4 MG TAB PO SCH ×3 (08:35→17:40)
[2018-04-21] MEDS: FUROSEMIDE 20 MG TAB PO SCH (08:36)
[2018-04-21] MEDS: SENNOSIDES/DOCUSATE SODIUM TAB PO SCH ×2 (08:36→21:30)
[2018-04-21] MEDS: GABAPENTIN 100 MG CAP PO SCH ×3 (08:36→21:29)
[2018-04-21] MEDS: PANTOPRAZOLE SODIUM 40 MG TAB PO SCH (08:36)
[2018-04-21] MEDS: DEXAMETHASONE 4 MG TAB PO SCH (08:36)
[2018-04-21] MEDS: CYCLOBENZAPRINE 10 MG TAB PO PRN (08:36)
[2018-04-21] MEDS: ENOXAPARIN 100 MG/ML SYR SC SCH ×2 (08:37→21:30)
[2018-04-21] MEDS: LORazepam 0.5 MG TAB PO PRN ×2 (10:24→16:41)
--- NOTE | 2018-04-21 10:31 | HOSPPROG ---
Hospitalist Progress Note Assessment/Plan: # uncontrolled pain d/t cancer - slowly improving - cont oxycontin 40 bid, dilaudid, oxy, kym, flexeril - decadron started # NSCLC locally advanced - refuses chemo - seen by hospice - is appropriate for hospice # PE, dx'd 12/2017 - on LMWH as she had refused NOACs - I did not discuss this with her today # c. dif colitis - vanc PO stopped today # COPD - on bronchodilators # venous insufficiency - lasix # decisional capacity - per my interview, she has capacity today; she has insight into her conditions, and plans (although not very good) regarding her dispo # dispo - working on medicaid paperwork for SNF Subjective: Caitlyn reports she completed medicaid paperwork yesterday; she did not complete other paperwork for housing; her pain has been better on flexeril Objective: Vital Signs Temp Pulse Resp BP Pulse Ox 36.6 C 103 H 18 98/68 L 98 04/21/18 08:47 04/21/18 08:47 04/21/18 08:47 04/21/18 08:47 04/21/18 08:47 Laboratory Results 04/20/18 05:14 04/20/18 04/21/18 04/22/18 05:59 05:59 05:59 Intake Total 1740 2750 Balance 1740 2750 - Physical Exam Constitutional: no apparent distress, appears nourished Eyes: anicteric sclera Ears, Nose, Mouth, Throat: hearing normal Cardiovascular: No edema Respiratory: no respiratory distress Gastrointestinal: No distension Genitourinary: No ayala in urethra Skin: warm Musculoskeletal: full muscle strength Neurologic: AAOx3 Psychiatric: not anxious ICD10 Worksheet Patient Problems: Problems Problem Status Onset Breast cancer Acute Dehydration Acute Cancer associated pain Acute Pulmonary embolism Acute Chest pain Acute Adenocarcinoma of lung Acute Metastasis from breast cancer Acute Lumbar compression fracture Acute
[2018-04-21] MEDS: HYDROmorphONE/DILAUDID 4 MG TAB PO PRN (13:53)
[2018-04-21] MEDS: diphenhydrAMINE 25 MG CAP PO PRN ×2 (14:19→14:22)
--- NOTE | 2018-04-21 16:06 | ASMTCMCOM ---
CM Note CM Note Notes: Patient plan of care reviewed in rounds. Hoping to get approval for LT medicaid and from there get her to SNF where she can have pain control and care. She is tengential . She is anxious and reluctant to commit to going to SNF yet often inquires about it. Michael from [facility] joined us and had additional information to provide to Caitlyn regarding facility and that she may have her cat visit if in a carrier and that Eduardo would be welcome to join her for a daily hot meal. Call placed to [facility] and unfortunately they are unable to find fax sent yesterday, refaxed and confirmation placed in her chart. Joann from [employer] requested to complete screen however, she reports patient needs to provide bank statements which would represent difficult if not impossible, Not sure if patient may ultimately decide to go AMA. CM to follow. I will give her pants and a sweatshirt from the loan closet. CM to follow. Plan: To SNF when LT Medicaid approved. Date Signed: 04/21/2018 04:05 PM Electronically Signed By:Dottie Mason RN
[2018-04-22] MEDS: oxyCODONE IR 5 MG TAB PO PRN ×3 (04:17→20:16)
[2018-04-22] MEDS: LORazepam 0.5 MG TAB PO SCH ×3 (05:41→20:17)
[2018-04-22] MEDS: ONDANSETRON DISINTEGRATING 4 MG TAB PO SCH ×3 (07:59→18:39)
[2018-04-22] MEDS: ENOXAPARIN 100 MG/ML SYR SC SCH ×2 (08:41→20:16)
[2018-04-22] MEDS: CYCLOBENZAPRINE 10 MG TAB PO PRN (08:42)
[2018-04-22] MEDS: DEXAMETHASONE 4 MG TAB PO SCH (08:42)
[2018-04-22] MEDS: GABAPENTIN 100 MG CAP PO SCH ×3 (08:42→20:17)
[2018-04-22] MEDS: SENNOSIDES/DOCUSATE SODIUM TAB PO SCH ×2 (08:42→20:17)
[2018-04-22] MEDS: FUROSEMIDE 20 MG TAB PO SCH (08:42)
[2018-04-22] MEDS: PANTOPRAZOLE SODIUM 40 MG TAB PO SCH (08:42)
[2018-04-22] MEDS: diphenhydrAMINE 25 MG CAP PO PRN (10:45)
--- NOTE | 2018-04-22 13:54 | ASMTCMCOM ---
CM Note CM Note Notes: Maci from [employer] is contacting the county to see if they can reach out to pt's bank due to pt not being able to do this. Radhika from [employer] is in the process of writing up her report. CM to follow. D/C Plan: To SNF when LT Medicaid approved. Date Signed: 04/22/2018 01:53 PM Electronically Signed By:Carol Gomez
--- NOTE | 2018-04-22 15:35 | HOSPPROG ---
Hospitalist Progress Note Assessment/Plan: # uncontrolled pain d/t cancer - better overall since starting oxycontin - cont oxycontin 40 bid, dilaudid, oxy, kym, flexeril - decadron started # NSCLC locally advanced - refuses chemo - seen by hospice - is appropriate # PE, dx'd 12/2017 - on LMWH as she had refused NOACs - she feels she had a bad reaction to xarelto # c. dif colitis - sp couse of vanc PO # COPD - on bronchodilators # venous insufficiency - lasix # decisional capacity - per my interview, she has capacity today; she has insight into her conditions, and plans (although not very good) regarding her dispo # dispo - working on medicaid paperwork for SNF, planning on [facility]; would likely do hospice at Subjective: we had a discussion about going to [facility]; she reports her pain is controlled Objective: Vital Signs Temp Pulse Resp BP Pulse Ox 36.6 C 97 16 125/76 H 96 04/22/18 08:00 04/22/18 08:00 04/22/18 08:00 04/22/18 08:00 04/22/18 08:00 Laboratory Results 04/20/18 05:14 04/21/18 04/22/18 04/23/18 05:59 05:59 05:59 Intake Total 2750 1200 Balance 2750 1200 - Time Spent With Patient Time Spent with Patient: greater than 25 minutes Time Spent with Patient: Greater than 25 minutes spent on this patients care, greater than 50% of time spent counseling, educating, and coordinating care regarding the above mentioned plan. - Physical Exam Constitutional: not in pain, uncomfortable ICD10 Worksheet Patient Problems: Problems Problem Status Onset Breast cancer Acute Dehydration Acute Cancer associated pain Acute Pulmonary embolism Acute Chest pain Acute Adenocarcinoma of lung Acute Metastasis from breast cancer Acute Lumbar compression fracture Acute
--- NOTE | 2018-04-22 16:22 | ASMTCMCOM ---
CM Note CM Note Notes: Pt met with SANJAY and yanique from [employer]. Pt contacted the bank where her SSI checks are deposited. She requested that they fax a bank statement to yanique; the fax was sent and Yanique has submitted it to the [facility]. The [facility] may require that pt has bank statement from other bank, where she has an account,to be sent. Per pt, she has $4 in this account and will not pay the $6 charge to have them fax Yaniqeu that statement. She does not believe that the hospital could successfully pay for it. Pt does understand that she may go to [place]. Note sent to [facility] through [employer] with progress made on terminal [place] Medicaid application. D/C Plan: TBD Date Signed: 04/22/2018 04:22 PM Electronically Signed By:Carol Gomez
--- NOTE | 2018-04-22 16:44 | ASMTCMCOM ---
CM Note CM Note Notes: Sharon Matta has been contacted both through [employer] and by telephone. They have been asked if they could accept pt tomorrw, as she is ready for d/c. There is no response as of yet. D/C Plan: TBD Date Signed: 04/22/2018 04:44 PM Electronically Signed By:Carol Gomez
[2018-04-22] MEDS: HYDROmorphONE/DILAUDID 4 MG TAB PO PRN (18:47)
[2018-04-23] MEDS: oxyCODONE IR 5 MG TAB PO PRN ×3 (02:12→17:38)
[2018-04-23] MEDS: LORazepam 0.5 MG TAB PO PRN (02:12)
[2018-04-23] MEDS: CYCLOBENZAPRINE 10 MG TAB PO PRN (02:12)
[2018-04-23] MEDS: LORazepam 0.5 MG TAB PO SCH ×3 (06:32→21:59)
[2018-04-23] MEDS: diphenhydrAMINE 25 MG CAP PO PRN ×2 (06:32→17:38)
[2018-04-23] MEDS ORDERED: NICOTINE 14 MG/24 HR PATCH TD SCH (06:35)
[2018-04-23] MEDS: SENNOSIDES/DOCUSATE SODIUM TAB PO SCH ×2 (08:29→20:38)
[2018-04-23] MEDS: PANTOPRAZOLE SODIUM 40 MG TAB PO SCH (08:29)
[2018-04-23] MEDS: DEXAMETHASONE 4 MG TAB PO SCH (08:30)
[2018-04-23] MEDS: GABAPENTIN 100 MG CAP PO SCH ×3 (08:30→21:59)
[2018-04-23] MEDS: FUROSEMIDE 20 MG TAB PO SCH (08:30)
[2018-04-23] MEDS: ENOXAPARIN 100 MG/ML SYR SC SCH ×2 (08:30→20:38)
[2018-04-23] MEDS: HYDROmorphONE/DILAUDID 4 MG TAB PO PRN ×2 (08:30→14:57)
[2018-04-23] MEDS: ONDANSETRON DISINTEGRATING 4 MG TAB PO SCH ×3 (08:30→17:12)
--- NOTE | 2018-04-23 10:18 | HOSPPROG ---
Hospitalist Progress Note Assessment/Plan: # uncontrolled pain d/t cancer - better overall since starting oxycontin - cont oxycontin 40 bid, dilaudid, oxy, kym, flexeril - decadron started # NSCLC locally advanced - refuses chemo - seen by hospice - is appropriate # PE, dx'd 12/2017 - on LMWH as she had refused NOACs - she feels she had a bad reaction to xarelto # c. dif colitis - sp couse of vanc PO # COPD - on bronchodilators # venous insufficiency - lasix # decisional capacity - she has capacity; she has insight into her conditions, and plans (although not very good) regarding her dispo # dispo - working on medicaid paperwork for SNF, planning on [facility]; would likely do hospice at Subjective: some sharp left sided pain. otherwise no complaints Objective: Vital Signs Temp Pulse Resp BP Pulse Ox 36.6 C 113 H 16 118/84 H 95 04/23/18 09:28 04/23/18 09:28 04/23/18 09:28 04/23/18 09:28 04/23/18 09:28 Laboratory Results 04/20/18 05:14 04/22/18 04/23/18 04/24/18 05:59 05:59 05:59 Intake Total 1200 1490 550 Balance 1200 1490 550 - Physical Exam Constitutional: no apparent distress, appears nourished, not in pain Eyes: anicteric sclera, EOMI Ears, Nose, Mouth, Throat: moist mucous membranes, hearing normal Respiratory: no respiratory distress Neurologic: AAOx3 Psychiatric: interacting appropriately, not anxious, not encephalopathic, thought process linear ICD10 Worksheet Patient Problems: Problems Problem Status Onset Adenocarcinoma of lung Acute Lumbar compression fracture Acute Breast cancer Acute Cancer associated pain Acute Chest pain Acute Dehydration Acute Metastasis from breast cancer Acute Pulmonary embolism Acute
--- NOTE | 2018-04-23 15:20 | ASMTCMCOM ---
CM Note CM Note Notes: Pt's friend Eduardo brought pt's bank tatement from [facility]. This paper was given to [facility] and Medicaid robert sent to [facility]. All paperwork necessary has now been gathered and sent. D/C Plan: Sharon Matta Date Signed: 04/23/2018 03:16 PM Electronically Signed By:Carol Gomez
[2018-04-23] MEDS: NICOTINE 14 MG/24 HR PATCH TD SCH (16:43)
[2018-04-23] MEDS: POLYETHYLENE GLYCOL 3350 17 GM PKT PO PRN (17:12)
[2018-04-24] MEDS: oxyCODONE IR 5 MG TAB PO PRN (01:23)
[2018-04-24] MEDS: LORazepam 0.5 MG TAB PO SCH ×2 (06:00→14:02)
[2018-04-24 07:37] VITALS: BP 139/82
[2018-04-24] MEDS: ONDANSETRON DISINTEGRATING 4 MG TAB PO SCH ×2 (08:20→11:48)
[2018-04-24] MEDS: SENNOSIDES/DOCUSATE SODIUM TAB PO SCH (08:20)
[2018-04-24] MEDS: GABAPENTIN 100 MG CAP PO SCH (08:21)
[2018-04-24] MEDS: FUROSEMIDE 20 MG TAB PO SCH (08:21)
[2018-04-24] MEDS: PANTOPRAZOLE SODIUM 40 MG TAB PO SCH (08:22)
[2018-04-24] MEDS: NICOTINE 14 MG/24 HR PATCH TD SCH (08:22)
[2018-04-24] MEDS: DEXAMETHASONE 4 MG TAB PO SCH (08:22)
[2018-04-24] MEDS: ENOXAPARIN 100 MG/ML SYR SC SCH (08:23)
--- NOTE | 2018-04-24 13:48 | HOSPPROG ---
Hospitalist Progress Note Assessment/Plan: # uncontrolled pain d/t cancer - better overall since starting oxycontin - cont oxycontin 40 bid, dilaudid, oxy, kym, flexeril - decadron started # NSCLC locally advanced - refuses chemo - seen by hospice - is appropriate # PE, dx'd 12/2017 - on LMWH as she had refused NOACs - she feels she had a bad reaction to xarelto * Switch to once daily dosing 1.5 milligrams/kilogram # c. dif colitis - sp couse of vanc PO # COPD - on bronchodilators # venous insufficiency - lasix # decisional capacity - she has capacity; she has insight into her conditions, and plans (although not very good) regarding her dispo # dispo - working on medicaid paperwork for SNF, planning [facility]; would likely do hospice at Subjective: No new complaints Objective: Vital Signs Temp Pulse Resp BP Pulse Ox 36.8 C 100 16 139/82 H 92 04/24/18 07:36 04/24/18 07:36 04/24/18 07:36 04/24/18 07:36 04/24/18 07:36 Laboratory Results 04/20/18 05:14 04/23/18 04/24/18 04/25/18 05:59 05:59 05:59 Intake Total 1490 1200 Balance 1490 1200 - Physical Exam Constitutional: no apparent distress, appears nourished, not in pain Eyes: anicteric sclera Respiratory: no respiratory distress Neurologic: AAOx3 Psychiatric: interacting appropriately, not anxious, not encephalopathic, thought process linear ICD10 Worksheet Patient Problems: Problems Problem Status Onset Adenocarcinoma of lung Acute Lumbar compression fracture Acute Breast cancer Acute Cancer associated pain Acute Chest pain Acute Dehydration Acute Metastasis from breast cancer Acute Pulmonary embolism Acute
--- NOTE | 2018-04-24 14:50 | ASMTCMCOM ---
CM Note SANJAY Note Notes: CM met w/ pt per her request. CM informed pt that when she went to [place] that her disability check would need to go towards her stay there. Pt reports that she cannot do that and she needs to pay rent. Pt is leaving [place]. Date Signed: 04/24/2018 02:50 PM Electronically Signed By:GREGORY Conner
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
--- NOTE | 2018-04-24 20:26 | GDS ---
DISCHARGE DIAGNOSES: 1. Non-small cell lung cancer, locally advanced. 2. History of PE. 3. History of Clostridium difficile colitis. 4. Chronic obstructive pulmonary disease. 5. Uncontrolled pain secondary to above. HISTORY: Patient has been admitted several times for pain control. She leaves AMA frequently. She was admitted this time for pain control. Palliative Care was consulted. She is on higher dose OxyCo ntin as well as Ativan. We were trying to get her into a fci facility at [facility], but then she found out that her disability checks would have to be taken to pay for that, and since she to pay rent she did not want to do that and she left against medical advice. I tried to g et a prescription of Ativan to her along with OxyContin, but she had left prior to me being able to. /[id number]/MODL
[2018-04-24] MEDS ORDERED: ENOXAPARIN 150 MG/ML SYR SC SCH (21:00)
== END 2018-04-24 14:36 | disposition left against medical advice (07) | DRG 861 ==
LOC: INTOOBSV 15:00 → F1N 17:40 → OBSVTOIN 04-15 17:00
PROVIDERS: ADMIT Internal Medicine; ATTEND Internal Medicine
DX: G89.3 Neoplasm related pain (acute) (chronic) (principal); C78.00 Secondary malignant neoplasm of unspecified lung; C79.51 Secondary malignant neoplasm of bone; Z85.3 Personal history of malignant neoplasm of breast; A04.72 Enterocolitis due to Clostridium difficile, not specified as recurrent; J96.11 Chronic respiratory failure with hypoxia; J44.9 Chronic obstructive pulmonary disease, unspecified; I87.2 Venous insufficiency (chronic) (peripheral); G31.84 Mild cognitive impairment of uncertain or unknown etiology; F43.10 Post-traumatic stress disorder, unspecified; F17.210 Nicotine dependence, cigarettes, uncomplicated; Z23 Encounter for immunization
CPT/HCPCS: 84484-PO; 92507-GN; 92523-GN; 96374; 97161-GP; 97165-GO; 97530-GO; 97535-GO; G0008; G0378; J1170; J1650; J2405; J7613; Q9967

== ENCOUNTER 2018-04-25 07:50 | Emergency (ER) | payer MEDICAID ==
--- NOTE | 2018-04-25 07:59 | EDPHY ---
HPI/HX/ROS/PE/MDM Narrative: CHIEF COMPLAINT: Chest pain HPI: The patient is a 58 y/o female with a complex medical history including several admissions for pain control secondary to metastasized non-small cell lung cancer. She was treated inpatient for pain control 01/17/18-02/02/18, 03/25/18- 03/29/18, 03/31/18-04/07/18, and 04/15/18-. She has left against medical advice several times, including yesterday. She was supposed to go to [place] on Thursday, prior to leaving AMA yesterday. She left without her prescriptions. Today, her pain has worsened and she reports difficulty breathing. She would like to go to [place] as planned. She denies any new symptoms. REVIEW OF SYSTEMS: Aside from elements discussed in the HPI, a comprehensive 10-point review of systems was reviewed and is negative. PMH: Metastasized non-small cell lung cancer, chronic chest pain, COPD, pulmonary embolism SOCIAL HISTORY: Lives in [place], heavy smoker, medicaid patient PHYSICAL EXAM: General:Patient is alert, in no acute distress. Disheveled in appearance. ENT:Eyes are normal to inspection. ENT inspection normal. Neck: Normal inspection. Full range of motion. Respiratory:No respiratory distress. Breath sounds diminished but equal bilaterally. Speaking in full sentences. Cardiovascular: Regular rate and rhythm. Strong peripheral pulses. Normal cap refill. Abdomen:The abdomen is nontender to palpation. There are no peritoneal signs. There are normal bowel sounds. Back: Normal to inspection. No tenderness to palpation. Skin: Normal color. No rash. Warm and dry. Extremities: Normal appearance. Full range of motion. Neuro: Oriented x3. Normal motor function. Normal sensory function. ED Course: The patient presents with uncontrollable pain secondary to advanced, metastasized non-small cell lung cancer. She has been admitted several times in the last few months, leaving AMA several times, including yesterday. She was supposed to go to [place] for continued care until she left yesterday. She would like to go to [place] now. She reports chest pain and difficulty breathing. She requests oxygen. I will have case management meet with her when they arrive to determine if she is still able to go to [place] and what options she has available. 10:00 AM - The patient met with case management and has chosen to leave against medical advice. She was informed that she carries higher risk of developing serious complications or by not being treated. General Time Seen by Provider: 04/25/18 07:58 Initial Vital Signs: Initial Vital Signs Temperature (C) 36.7 C 04/25/18 07:53 Heart Rate 101 H 04/25/18 07:53 Respiratory Rate 22 H 04/25/18 07:53 Blood Pressure 129/88 H 04/25/18 07:53 O2 Sat (%) 97 04/25/18 07:53 O2 Delivery Mode Nasal Cannula O2 (L/minute) 4 Allergies/Adverse Reactions: Sulfa (Sulfonamide Antibiotics) Allergy (Intermediate, Verified 04/14/18 13:26) rash/swelling acetaminophen [From Vicodin] Allergy (Mild, Verified 04/14/18 13:26) Rash codeine Allergy (Mild, Verified 04/14/18 13:26) Rash hydrocodone [From Vicodin] Allergy (Mild, Verified 04/14/18 13:26) Rash NSAIDS (Non-Steroidal Anti-Inflamma Allergy (Mild, Verified 04/14/18 13:26) GI upset Penicillins Allergy (Mild, Verified 04/14/18 13:26) Rash fentanyl Allergy (Verified 04/14/18 13:26) sugar substitutes Allergy (Intermediate, Uncoded 01/22/18 11:27) Swelling/neck,face,throat Home Medications: Medication Instructions Recorded Albuterol [Proventil Inhaler HFA 2 puffs IH BID PRN 01/16/18 (*)] LORazepam [Ativan (*)] 0.5 mg PO Q8HRS #60 tab 04/24/18 oxyCODONE CR [Oxycontin] 40 mg PO BID #60 tab 04/24/18 Lovenox 04/25/18 Departure - Departure Disposition: Against Medical Advice Clinical Impression: Cancer associated pain, Metastasis from breast cancer Chest pain Qualifiers: Chest pain type: unspecified Qualified Code(s): R07.9 - Chest pain, unspecified Condition: Fair Instructions: Chest Pain (ED) Additional Instructions: 1. You are leaving against medical advice. By leaving, you may have serious complications including disability or . 2. If you choose to seek care again, please present to any emergency department. Referrals: Levon Montelongo MD [Medical Doctor] - As per Instructions Report Scribed for: Levon Waddell Report Scribed by: Nesha Yeboah Date of Report: 04/25/18 Time of Report: 08:29 Physician Review and Approval Statement: Portions of this note were transcribed by an ED scribe. I personally performed the history, physical exam, and medical decision making; and confirm the accuracy of the information in the transcribed note.
[2018-04-25] MEDS ORDERED: ACETAMINOPHEN 325 MG TAB ONE (08:25)
[2018-04-25 08:35] VITALS: BP 125/84
--- NOTE | 2018-04-25 10:39 | ASMTCMCOM ---
CM Note CM Note Notes: Patient presents to the ED this morning after leaving AMA yesterday from the floor. Chart reviewed-both CM and hospitalist reports-prior to meeting with patient. Based on this chart review and patient's desire to "now go" to [place], I have contacted Joe at [place] . Joe confirms that patient would not be able to admit to [facility] prior to tomorrow (Thursday). Patient may call [facility] in the morning after 9AM and speak to admissions regarding her desire to be admitted despite leaving the hospital AMA yesterday. I have confirmed with Joe that CM would be available to provide any suportive documentation if needed. I have met with patient and provided her the the phone number for [facility], suggesting that she call tomorrow after 9AM if she would like to follow through with admission. Patient expresses concern that she does not have any of her pain medication because her pharmacy ([facility] in [place] [phone]) needs "pre authorization" to fill the prescription. I offered to call the pharmacy for patient to clarify this. The pharmacy however was closed when I called at 0945. Upon returning to patient's room, patient had left the ED Date Signed: 04/25/2018 10:39 AM Electronically Signed By:Edda Sims RN
== END 2018-04-25 10:22 | disposition left against medical advice (07) ==
DX: R07.9 Chest pain, unspecified (principal); G89.3 Neoplasm related pain (acute) (chronic); C78.00 Secondary malignant neoplasm of unspecified lung; J44.9 Chronic obstructive pulmonary disease, unspecified; F17.210 Nicotine dependence, cigarettes, uncomplicated; Z85.3 Personal history of malignant neoplasm of breast; Z91.19 Patient's noncompliance with other medical treatment and regimen